=== PATIENT | female | born 1950 | race Two or more races ===

== ENCOUNTER 2016-12-26 12:50 | Emergency (ER) | payer SELFPAY ==
[~2016-12-26] VITALS: Ht 167.6 cm; Wt 100.2 kg
[~2016-12-26 12:50] MED LIST: ASPI81CH43 PO; ENAL-3 OR; FLUO20CA19 OR; GABA-494 OR; INSLANTI; INSLISPI; SIMV10TA84 OR
[2016-12-26 13:08] VITALS: BP 94/45
== END 2016-12-26 19:18 | disposition left against medical advice (07) ==
LOC: ER 12:50
DX: M54.2 Cervicalgia (principal); M54.9 Dorsalgia, unspecified; Z53.21 Procedure and treatment not carried out due to patient leaving prior to being seen by health care provider; V49.69XA Unspecified car occupant injured in collision with other motor vehicles in traffic accident, initial encounter; Y93.89 Activity, other specified; Y99.8 Other external cause status; Y92.410 Unspecified street and highway as the place of occurrence of the external cause
CPT/HCPCS: 82962

== ENCOUNTER 2017-12-02 10:23 | Emergency (ER) | payer MEDICAID ==
[~2017-12-02] VITALS: Ht 170.2 cm; Wt 79.4 kg
[2017-12-02 10:23] VITALS: BP 158/90
[~2017-12-02 10:23] MED LIST changes: -GABA-494 OR; +GABA100C9 OR
[2017-12-02 11:14] LABS: Basophils # (auto) 0 uL; Basophils % (auto) 0.4 % (0.0-2.0); Eosinophils # (auto) 0.1 uL; Eosinophils % (auto) 3.1 % (0.0-7.0); Hematocrit 36.5 % (36.0-46.0); Lymphocytes # (auto) 1.2 uL; Mean Corpuscular Hemoglobin 29.4 pg (28.0-32.0); Mean Corpuscular Hgb Conc. 32.9 g/dL (32.0-36.0); Mean Corpuscular Volume 89.5 fL (80.0-100.0); Monocytes # (auto) 0.4 uL; Monocytes % (auto) 8.3 % (0.0-12.0); Neutrophils # (auto) 2.6 uL; Neutrophils % (auto) 60.2 % (37.0-80.0); Platelet Count (auto) 211 10^3/uL (140-450); Red Blood Cells 4.08 10^6/uL (4.0-5.20); Red Cell Distribution Width 14.7 % (11.8-14.3); White Blood Cell 4.3 10^3/uL (4.4-10.8)
[2017-12-02 11:50] LABS: Albumin 3.3 g/dL (3.4-5.0); BUN/Creatinine Ratio 26.1; Bilirubin, Total 0.4 mg/dL (0.2-1.0); Calcium 8.8 mg/dL (8.5-10.1); Potassium 4.6 mmol/L (3.5-5.1); Total Protein 7.9 g/dL (6.4-8.2)
[2017-12-02 11:54] LABS: Urine WBC None Seen /hpf (0 - 5)
[2017-12-02 12:06] LABS: Urine Bacteria NONE SEEN /hpf (None Seen); Urine Blood Negative /uL (Negative); Urine Specific Gravity 1.007 (1.001-1.035)
== END 2017-12-02 14:55 | disposition home or self-care (01) ==
LOC: ER 10:23 → EDBD 10:23 → ER 14:55
DX: S81.812D Laceration without foreign body, left lower leg, subsequent encounter (principal); I12.9 Hypertensive chronic kidney disease with stage 1 through stage 4 chronic kidney disease, or unspecified chronic kidney disease; E11.22 Type 2 diabetes mellitus with diabetic chronic kidney disease; N18.9 Chronic kidney disease, unspecified; E78.5 Hyperlipidemia, unspecified; I20.9 Angina pectoris, unspecified; Z79.4 Long term (current) use of insulin; X58.XXXD Exposure to other specified factors, subsequent encounter
CPT/HCPCS: 36415; 80053; 81001; 85025

== ENCOUNTER 2018-09-08 00:42 | Emergency (ER) | payer MEDICARE, BC, MEDICAID ==
[~2018-09-08] VITALS: Ht 167.6 cm; Wt 96.2 kg
[2018-09-08] MEDS: ACCU-CHEK COMFORT CURVE STRIP VI SCH ×2 (01:53→03:26)
[2018-09-08 02:00] VITALS: BP 118/62
[2018-09-08 02:59] LABS: Basophils # (auto) 0 uL; Basophils % (auto) 0.4 % (0.0-2.0); Eosinophils # (auto) 0.1 uL; Eosinophils % (auto) 2.4 % (0.0-7.0); Hematocrit 37.3 % (36.0-46.0); Hemoglobin 12.4 g/dL (12.2-16.2); Lymphocytes # (auto) 1.4 uL; Lymphocytes % (auto) 27.9 % (10.0-50.0); Mean Corpuscular Hemoglobin 30.3 pg (28.0-32.0); Mean Corpuscular Hgb Conc. 33.4 g/dL (32.0-36.0); Mean Corpuscular Volume 90.8 fL (80.0-100.0); Monocytes # (auto) 0.6 uL; Monocytes % (auto) 12.3 % (0.0-12.0); Platelet Count (auto) 239 10^3/uL (140-450); Red Cell Distribution Width 14.1 % (11.8-14.3); White Blood Cell 5.2 10^3/uL (4.4-10.8)
[2018-09-08 03:20] LABS: Albumin 3.1 g/dL (3.4-5.0); Calcium 8.2 mg/dL (8.5-10.1)
[2018-09-08 03:22] LABS: BUN/Creatinine Ratio 19.2; Bilirubin, Total 0.3 mg/dL (0.2-1.0); Total Protein 7.2 g/dL (6.4-8.2)
== END 2018-09-08 03:35 | disposition home or self-care (01) ==
LOC: ER 00:43
DX: E11.649 Type 2 diabetes mellitus with hypoglycemia without coma (principal); T38.3X5A Adverse effect of insulin and oral hypoglycemic [antidiabetic] drugs, initial encounter; E11.22 Type 2 diabetes mellitus with diabetic chronic kidney disease; I12.9 Hypertensive chronic kidney disease with stage 1 through stage 4 chronic kidney disease, or unspecified chronic kidney disease; N18.9 Chronic kidney disease, unspecified; E78.5 Hyperlipidemia, unspecified; I25.2 Old myocardial infarction; Z79.4 Long term (current) use of insulin; Z79.82 Long term (current) use of aspirin; Z79.899 Other long term (current) drug therapy; Y92.89 Other specified places as the place of occurrence of the external cause
CPT/HCPCS: 36415; 80053; 82962; 85025

== ENCOUNTER 2021-03-27 17:32 | Inpatient (IN) | payer BC, MEDICAID, OTHER ==
[~2021-03-27] VITALS: Ht 167.6 cm; Wt 83.3 kg
[~2021-03-27 17:32] MED LIST changes: -ENAL-3 OR; +ENAL10TA13 OR
[2021-03-27] MEDS ORDERED: ASCORBIC ACID 500 MG TAB PO ONE (18:00)
[2021-03-27] MEDS ORDERED: ZINC SULFATE 220mg CAP or TAB PO ONE (18:00)
[2021-03-27] MEDS ORDERED: CHOLECALCIFEROL (VITD3) 2,000 UNIT CAP/TAB PO ONE (18:00)
[2021-03-27] MEDS ORDERED: AZITHROMYCIN 500MG/ 250ML 250 ML IV ONE (18:00)
[2021-03-27] MEDS ORDERED: methylPREDNISolone SOD SUCC 125 MG/2 ML VL IV ONE (18:00)
[2021-03-27 18:16] LABS: Basophils # (auto) 0 10 ^3/uL (0-0.2); Basophils % (auto) 0.1 % (0.0-2.0); Eosinophils # (auto) 0 10 ^3/uL (0-0.8); Hematocrit 35.8 % (36.0-46.0); Hemoglobin 11.9 g/dL (12.2-16.2); Lymphocytes # (auto) 0.5 10 ^3/uL (0.4-5.4); Lymphocytes % (auto) 6.9 % (10.0-50.0); Mean Corpuscular Hemoglobin 30.2 pg (28.0-32.0); Mean Corpuscular Hgb Conc. 33.4 g/dL (32.0-36.0); Mean Corpuscular Volume 90.7 fL (80.0-100.0); Monocytes # (auto) 0.4 10 ^3/uL (0-1.3); Monocytes % (auto) 5.9 % (0.0-12.0); Neutrophils # (auto) 6.6 10 ^3/uL (1.6-8.6); Neutrophils % (auto) 87.1 % (37.0-80.0); Nucleated Red Blood Cells % 0.1 %; Red Blood Cells 3.95 10^6/uL (4.0-5.20); Red Cell Distribution Width 14.4 % (11.8-14.3); White Blood Cell 7.6 10^3/uL (4.4-10.8)
[2021-03-27] MEDS ORDERED: ACETAMINOPHEN 500 MG TAB PO ONE (18:30)
[2021-03-27 18:32] LABS: Albumin 2.2 g/dL (3.4-5.0); Calcium 8.9 mg/dL (8.5-10.1); Potassium 5.2 mmol/L (3.5-5.1)
[2021-03-27 18:41] LABS: BUN/Creatinine Ratio 32.8; Bilirubin, Total 0.4 mg/dL (0.2-1.0); CRP High Sensitivity 17.4 mg/dL (< 0.3); Total Protein 7.6 g/dL (6.4-8.2)
[2021-03-27] MEDS ORDERED: InsuLIN REG 1unit/0.01ml Soln (100units/ml) IV ONE (19:00)
[2021-03-27] MEDS ORDERED: cefTRIAXone 1GM/50ML D5W 50 ML IV ONE (21:00)
[2021-03-27] MEDS ORDERED: TEMAZEPAM 15 MG CAP PO PRN (21:00)
[2021-03-27] MEDS ORDERED: ACETAMINOPHEN 500 MG TAB PO PRN (21:00)
[2021-03-27] MEDS ORDERED: NITROGLYCERIN 0.4 MG SL TAB SL PRN (21:00)
[2021-03-27] MEDS ORDERED: ONDANSETRON HCL 4 MG/2 ML VIAL IV PRN (21:00)
[2021-03-27] MEDS ORDERED: MORPHINE SULFATE INJECTION 2 MG/ML SYRG IV PRN (21:00)
[2021-03-27] MEDS ORDERED: SODIUM ZIRCONIUM CYCL 10 GM PAK PO ONE (21:00)
[2021-03-27] MEDS: ALBUTEROL SULF HFA 90MCG INH 200DOSE IN PRN (21:49)
[2021-03-27 22:20] VITALS: BP 82/40
[2021-03-27 22:25] VITALS: BP 87/42
[2021-03-27 22:35] VITALS: BP 80/41
[2021-03-27] MEDS: ASCORBIC ACID 500 MG TAB PO SCH (23:00)
[2021-03-27] MEDS: GABAPENTIN 100 MG CAP PO SCH (23:00)
[2021-03-27] MEDS: ATORVASTATIN 20 MG TAB PO SCH (23:00)
[2021-03-27] MEDS ORDERED: SODIUM CHLORIDE 0.9% 1,000 ML IV ONE (23:15)
[2021-03-27] MEDS ORDERED: DEXTROSE (50%) 50ML SYRG IV PRN (23:15)
[2021-03-27] MEDS ORDERED: ALBUMIN 5% 250 ML IV ONE ×2 (23:15→23:26)
[2021-03-27 23:30] VITALS: BP 83/41
[2021-03-27] MEDS: ACCU-CHEK COMFORT CURVE STRIP VI SCH (23:30)
[2021-03-27] MEDS: InsuLIN REG 1unit/0.01ml Soln (100units/ml) SC SCH (23:50)
[2021-03-28] VITALS (10 sets, daily range): BP systolic 82–129; BP diastolic 40–61
[2021-03-28 03:11] LABS: Basophils # (auto) 0 10 ^3/uL (0-0.2); Basophils % (auto) 0.1 % (0.0-2.0); Eosinophils # (auto) 0 10 ^3/uL (0-0.8); Hematocrit 34.9 % (36.0-46.0); Hemoglobin 11.3 g/dL (12.2-16.2); Lymphocytes # (auto) 0.3 10 ^3/uL (0.4-5.4); Lymphocytes % (auto) 4.3 % (10.0-50.0); Mean Corpuscular Hemoglobin 30.1 pg (28.0-32.0); Mean Corpuscular Hgb Conc. 32.4 g/dL (32.0-36.0); Mean Corpuscular Volume 92.9 fL (80.0-100.0); Monocytes # (auto) 0.2 10 ^3/uL (0-1.3); Monocytes % (auto) 2.4 % (0.0-12.0); Neutrophils # (auto) 6.5 10 ^3/uL (1.6-8.6); Neutrophils % (auto) 93.2 % (37.0-80.0); Red Blood Cells 3.76 10^6/uL (4.0-5.20); Red Cell Distribution Width 14.8 % (11.8-14.3)
[2021-03-28 03:30] LABS: Albumin 2.4 g/dL (3.4-5.0); Calcium 8.9 mg/dL (8.5-10.1); Potassium 5.1 mmol/L (3.5-5.1)
[2021-03-28 03:32] LABS: Bilirubin, Total 0.4 mg/dL (0.2-1.0); Total Protein 7.4 g/dL (6.4-8.2)
[2021-03-28 03:52] LABS: BUN/Creatinine Ratio 29.1
[2021-03-28] MEDS ORDERED: [UNRECOGNIZED DRUG - CODE] PO (05:47)
[2021-03-28] MEDS ORDERED: BACL10TA PO (05:47)
[2021-03-28] MEDS ORDERED: PRAV20TA3 PO (05:47)
[2021-03-28] MEDS ORDERED: DOCU100T15 PO (05:47)
[2021-03-28] MEDS ORDERED: INSLANTI SC (05:47)
[2021-03-28] MEDS ORDERED: BIOTCAP2 PO (05:47)
[2021-03-28] MEDS ORDERED: METF-370 PO (05:47)
[2021-03-28] MEDS ORDERED: PIO30T PO (05:47)
[2021-03-28] MEDS ORDERED: LISI-275 PO (05:47)
[2021-03-28] MEDS ORDERED: GABA-339 PO (05:47)
[2021-03-28] MEDS ORDERED: LACT10SO3 PO (05:48)
[2021-03-28] MEDS: GABAPENTIN 100 MG CAP PO SCH ×3 (06:00→22:22)
[2021-03-28] MEDS: ACCU-CHEK COMFORT CURVE STRIP VI SCH ×4 (06:00→23:17)
[2021-03-28] MEDS: ALBUTEROL SULF HFA 90MCG INH 200DOSE IN PRN (06:29)
[2021-03-28] MEDS: InsuLIN REG 1unit/0.01ml Soln (100units/ml) SC SCH ×4 (06:54→22:00)
[2021-03-28 06:57] LABS: Urine Bacteria MANY /hpf (None Seen); Urine Blood 1+ /uL (Negative); Urine Hyaline Cast FEW /lpf (0 - 2); Urine Mucus FEW (None Seen); Urine Specific Gravity 1.019 (1.001-1.035); Urine WBC 99 /hpf (0 - 5); Urine WBC Clumps PRESENT /hpf (None Seen)
[2021-03-28] MEDS ORDERED: ZINC SULFATE 220mg CAP or TAB PO SCH (10:00)
[2021-03-28] MEDS ORDERED: PANTOPRAZOLE 40 MG TAB PO SCH (10:00)
[2021-03-28] MEDS ORDERED: ASCORBIC ACID 1,000 MG TAB PO SCH (10:00)
[2021-03-28] MEDS ORDERED: REMDESIVIR PER PHARMACY 0 ML IV SCH (10:45)
[2021-03-28] MEDS ORDERED: DEXTROSE (50%) 50ML SYRG IV PRN ×2 (10:45→11:00)
[2021-03-28] MEDS ORDERED: INSULIN LANTUS (GLARGINE) 1 /0.01ml (100units/ml) SC ONE (10:45)
[2021-03-28] MEDS ORDERED: InsuLIN REG 1unit/0.01ml Soln (100units/ml) SC SCH ×2 (11:30→22:00)
[2021-03-28] MEDS ORDERED: ACCU-CHEK COMFORT CURVE STRIP VI SCH (11:30)
[2021-03-28] MEDS: DexAMETHasone SOD PHOS 10MG/1ML VIAL INJ IV SCH (11:33)
[2021-03-28] MEDS: ZINC SULFATE 220mg CAP or TAB PO SCH (11:34)
[2021-03-28] MEDS: FLUoxetine HCL 20 MG CAP PO SCH (11:35)
[2021-03-28] MEDS: ENOXAPARIN SOD 40 MG/0.4 ML SYRINGE SC SCH (11:35)
[2021-03-28] MEDS: SODIUM CHLORIDE 0.9% 1,000 ML IV SCH (11:35)
[2021-03-28] MEDS: CHOLECALCIFEROL (VITD3) 2,000 UNIT CAP/TAB PO SCH (11:35)
[2021-03-28] MEDS: ASCORBIC ACID 500 MG TAB PO SCH ×2 (11:35→22:23)
[2021-03-28] MEDS ORDERED: InsuLIN REG 1unit/0.01ml Soln (100units/ml) SC ONE (14:15)
[2021-03-28] MEDS: AZITHROMYCIN 500MG/ 250ML 250 ML IV SCH (17:29)
[2021-03-28] MEDS: INSULIN LANTUS (GLARGINE) 1 /0.01ml (100units/ml) SC SCH (22:00)
[2021-03-28] MEDS: cefTRIAXone 1GM/50ML D5W 50 ML IV SCH (22:22)
[2021-03-28] MEDS: ATORVASTATIN 20 MG TAB PO SCH (22:22)
[2021-03-29] VITALS (7 sets, daily range): BP systolic 115–143; BP diastolic 52–69
[2021-03-29] MEDS: ACCU-CHEK COMFORT CURVE STRIP VI SCH ×4 (06:10→21:35)
[2021-03-29] MEDS: GABAPENTIN 100 MG CAP PO SCH ×3 (06:10→21:34)
[2021-03-29] MEDS: InsuLIN REG 1unit/0.01ml Soln (100units/ml) SC SCH ×4 (06:11→21:41)
[2021-03-29] MEDS: SODIUM CHLORIDE 0.9% 1,000 ML IV SCH (06:13)
[2021-03-29 06:26] LABS: Basophils # (auto) 0 10 ^3/uL (0-0.2); Basophils % (auto) 0.1 % (0.0-2.0); Eosinophils # (auto) 0 10 ^3/uL (0-0.8); Hematocrit 36.1 % (36.0-46.0); Hemoglobin 11.8 g/dL (12.2-16.2); Lymphocytes # (auto) 0.5 10 ^3/uL (0.4-5.4); Mean Corpuscular Hemoglobin 29.7 pg (28.0-32.0); Mean Corpuscular Hgb Conc. 32.7 g/dL (32.0-36.0); Mean Corpuscular Volume 91.1 fL (80.0-100.0); Monocytes # (auto) 0.4 10 ^3/uL (0-1.3); Monocytes % (auto) 4.5 % (0.0-12.0); Neutrophils # (auto) 8.6 10 ^3/uL (1.6-8.6); Neutrophils % (auto) 90.4 % (37.0-80.0); Red Blood Cells 3.96 10^6/uL (4.0-5.20); Red Cell Distribution Width 14.4 % (11.8-14.3); White Blood Cell 9.5 10^3/uL (4.4-10.8)
[2021-03-29 06:31] LABS: BUN/Creatinine Ratio 50.3; Calcium 9.2 mg/dL (8.5-10.1); Potassium 4.9 mmol/L (3.5-5.1)
[2021-03-29] MEDS: ALBUTEROL SULF HFA 90MCG INH 200DOSE IN PRN (08:21)
[2021-03-29] MEDS: DexAMETHasone SOD PHOS 10MG/1ML VIAL INJ IV SCH (09:12)
[2021-03-29] MEDS: FLUoxetine HCL 20 MG CAP PO SCH (09:12)
[2021-03-29] MEDS: FUROSEMIDE 40 MG/4 ML VIAL IV SCH (09:12)
[2021-03-29] MEDS: ASCORBIC ACID 500 MG TAB PO SCH ×2 (09:13→21:34)
[2021-03-29] MEDS: ZINC SULFATE 220mg CAP or TAB PO SCH (09:13)
[2021-03-29] MEDS: ENOXAPARIN SOD 40 MG/0.4 ML SYRINGE SC SCH (09:13)
[2021-03-29] MEDS: CHOLECALCIFEROL (VITD3) 2,000 UNIT CAP/TAB PO SCH (09:13)
[2021-03-29] MEDS ORDERED: REMDESIVIR PER PHARMACY 0 ML IV SCH (09:15)
[2021-03-29] MEDS ORDERED: REMDESIVIR 200 MG in NS 210ml LOADING DOSE ADULT IV ONE (15:00)
[2021-03-29] MEDS: AZITHROMYCIN 500MG/ 250ML 250 ML IV SCH (17:23)
[2021-03-29] MEDS: ATORVASTATIN 20 MG TAB PO SCH (21:34)
[2021-03-29] MEDS: cefTRIAXone 1GM/50ML D5W 50 ML IV SCH (21:34)
[2021-03-29] MEDS: INSULIN LANTUS (GLARGINE) 1 /0.01ml (100units/ml) SC SCH (21:42)
[2021-03-30 05:26] VITALS: BP 136/77
[2021-03-30 06:14] LABS: Basophils # (auto) 0 10 ^3/uL (0-0.2); Basophils % (auto) 0.1 % (0.0-2.0); Eosinophils # (auto) 0 10 ^3/uL (0-0.8); Hemoglobin 11.5 g/dL (12.2-16.2); Lymphocytes # (auto) 0.4 10 ^3/uL (0.4-5.4); Lymphocytes % (auto) 4.9 % (10.0-50.0); Mean Corpuscular Hemoglobin 30.7 pg (28.0-32.0); Mean Corpuscular Hgb Conc. 33.9 g/dL (32.0-36.0); Mean Corpuscular Volume 90.5 fL (80.0-100.0); Monocytes # (auto) 0.4 10 ^3/uL (0-1.3); Monocytes % (auto) 5.2 % (0.0-12.0); Neutrophils # (auto) 7.6 10 ^3/uL (1.6-8.6); Neutrophils % (auto) 89.8 % (37.0-80.0); Red Blood Cells 3.76 10^6/uL (4.0-5.20); Red Cell Distribution Width 14.4 % (11.8-14.3); White Blood Cell 8.4 10^3/uL (4.4-10.8)
[2021-03-30] MEDS: ACCU-CHEK COMFORT CURVE STRIP VI SCH ×4 (06:14→21:57)
[2021-03-30] MEDS: GABAPENTIN 100 MG CAP PO SCH ×3 (06:14→22:00)
[2021-03-30] MEDS: InsuLIN REG 1unit/0.01ml Soln (100units/ml) SC SCH ×4 (06:19→21:58)
[2021-03-30 06:22] LABS: Potassium 4.2 mmol/L (3.5-5.1)
[2021-03-30] MEDS: ALBUTEROL SULF HFA 90MCG INH 200DOSE IN PRN (06:22)
[2021-03-30 06:28] LABS: Albumin 2.1 g/dL (3.4-5.0); BUN/Creatinine Ratio 48.2; Bilirubin, Total 0.2 mg/dL (0.2-1.0); Calcium 9.1 mg/dL (8.5-10.1)
[2021-03-30 09:00] VITALS: BP 124/58
[2021-03-30] MEDS: DexAMETHasone SOD PHOS 10MG/1ML VIAL INJ IV SCH (10:19)
[2021-03-30] MEDS: FUROSEMIDE 40 MG/4 ML VIAL IV SCH (10:20)
[2021-03-30] MEDS: FLUoxetine HCL 20 MG CAP PO SCH (10:20)
[2021-03-30] MEDS: ZINC SULFATE 220mg CAP or TAB PO SCH (10:20)
[2021-03-30] MEDS: CHOLECALCIFEROL (VITD3) 2,000 UNIT CAP/TAB PO SCH (10:21)
[2021-03-30] MEDS: ASCORBIC ACID 500 MG TAB PO SCH ×2 (10:21→21:56)
[2021-03-30] MEDS: ENOXAPARIN SOD 40 MG/0.4 ML SYRINGE SC SCH (10:21)
[2021-03-30] MEDS: ENALAPRIL MALEATE 10 MG TAB PO SCH (10:21)
[2021-03-30 13:00] VITALS: BP 128/62
[2021-03-30] MEDS: REMDESIVIR 100mg 100 MG in SODIUM CHL 0.9% 230 ML IV SCH (15:13)
[2021-03-30 16:50] VITALS: BP 131/67
[2021-03-30] MEDS: AZITHROMYCIN 500MG/ 250ML 250 ML IV SCH (17:09)
[2021-03-30] MEDS: cefTRIAXone 1GM/50ML D5W 50 ML IV SCH (21:56)
[2021-03-30] MEDS: ATORVASTATIN 20 MG TAB PO SCH (21:56)
[2021-03-30 22:00] VITALS: BP 136/60
[2021-03-30] MEDS: INSULIN LANTUS (GLARGINE) 1 /0.01ml (100units/ml) SC SCH (22:00)
[2021-03-31] VITALS (9 sets, daily range): BP systolic 62–146; BP diastolic 54–83
[2021-03-31] MEDS: ALBUTEROL SULF HFA 90MCG INH 200DOSE IN PRN ×2 (06:09→20:23)
[2021-03-31] MEDS: GABAPENTIN 100 MG CAP PO SCH ×3 (06:21→21:26)
[2021-03-31] MEDS: ACCU-CHEK COMFORT CURVE STRIP VI SCH ×4 (06:21→21:25)
[2021-03-31] MEDS: InsuLIN REG 1unit/0.01ml Soln (100units/ml) SC SCH ×4 (06:22→21:07)
[2021-03-31 06:49] LABS: Basophils # (auto) 0 10 ^3/uL (0-0.2); Basophils % (auto) 0.1 % (0.0-2.0); Eosinophils # (auto) 0 10 ^3/uL (0-0.8); Hematocrit 35.1 % (36.0-46.0); Hemoglobin 11.9 g/dL (12.2-16.2); Lymphocytes # (auto) 0.6 10 ^3/uL (0.4-5.4); Lymphocytes % (auto) 8.5 % (10.0-50.0); Mean Corpuscular Hemoglobin 30.3 pg (28.0-32.0); Mean Corpuscular Hgb Conc. 33.8 g/dL (32.0-36.0); Mean Corpuscular Volume 89.5 fL (80.0-100.0); Monocytes # (auto) 0.5 10 ^3/uL (0-1.3); Monocytes % (auto) 6.5 % (0.0-12.0); Neutrophils # (auto) 5.9 10 ^3/uL (1.6-8.6); Neutrophils % (auto) 84.9 % (37.0-80.0); Red Blood Cells 3.92 10^6/uL (4.0-5.20); Red Cell Distribution Width 14.2 % (11.8-14.3)
[2021-03-31 06:55] LABS: Potassium 3.8 mmol/L (3.5-5.1)
[2021-03-31 07:05] LABS: Albumin 1.8 g/dL (3.4-5.0); BUN/Creatinine Ratio 46.7; Bilirubin, Total 0.3 mg/dL (0.2-1.0); Calcium 8.9 mg/dL (8.5-10.1); Total Protein 6.6 g/dL (6.4-8.2)
[2021-03-31] MEDS: DexAMETHasone SOD PHOS 10MG/1ML VIAL INJ IV SCH (09:52)
[2021-03-31] MEDS: ZINC SULFATE 220mg CAP or TAB PO SCH (09:54)
[2021-03-31] MEDS: ASCORBIC ACID 500 MG TAB PO SCH ×2 (09:54→21:26)
[2021-03-31] MEDS: FUROSEMIDE 40 MG/4 ML VIAL IV SCH ×2 (09:54→17:51)
[2021-03-31] MEDS: FLUoxetine HCL 20 MG CAP PO SCH (09:54)
[2021-03-31] MEDS: ENOXAPARIN SOD 40 MG/0.4 ML SYRINGE SC SCH ×2 (09:55→21:22)
[2021-03-31] MEDS: CHOLECALCIFEROL (VITD3) 2,000 UNIT CAP/TAB PO SCH (09:55)
[2021-03-31] MEDS: ENALAPRIL MALEATE 10 MG TAB PO SCH (10:03)
[2021-03-31] MEDS: REMDESIVIR 100mg 100 MG in SODIUM CHL 0.9% 230 ML IV SCH (15:34)
[2021-03-31] MEDS ORDERED: SODIUM CHLORIDE 0.9% 250 ML IV ONE (18:45)
[2021-03-31] MEDS: AZITHROMYCIN 500MG/ 250ML 250 ML IV SCH (19:00)
[2021-03-31] MEDS: cefTRIAXone 1GM/50ML D5W 50 ML IV SCH (21:25)
[2021-03-31] MEDS: ATORVASTATIN 20 MG TAB PO SCH (21:26)
[2021-03-31] MEDS: INSULIN LANTUS (GLARGINE) 1 /0.01ml (100units/ml) SC SCH (21:27)
[2021-04-01 05:00] VITALS: BP 128/71
[2021-04-01] MEDS: FUROSEMIDE 40 MG/4 ML VIAL IV SCH ×2 (06:05→17:18)
[2021-04-01] MEDS: GABAPENTIN 100 MG CAP PO SCH ×3 (06:05→21:18)
[2021-04-01] MEDS: ACCU-CHEK COMFORT CURVE STRIP VI SCH ×4 (06:06→21:17)
[2021-04-01] MEDS: InsuLIN REG 1unit/0.01ml Soln (100units/ml) SC SCH ×4 (06:11→21:36)
[2021-04-01 07:12] LABS: Albumin 1.8 g/dL (3.4-5.0)
[2021-04-01 07:14] LABS: BUN/Creatinine Ratio 35.2
[2021-04-01 07:18] LABS: Bilirubin, Total 0.3 mg/dL (0.2-1.0); Total Protein 6.6 g/dL (6.4-8.2)
[2021-04-01] MEDS: ALBUTEROL SULF HFA 90MCG INH 200DOSE IN PRN ×2 (07:20→19:52)
[2021-04-01 07:30] VITALS: BP 93/53
[2021-04-01 09:00] VITALS: BP 93/53
[2021-04-01] MEDS: ENALAPRIL MALEATE 10 MG TAB PO SCH (10:00)
[2021-04-01] MEDS: ASCORBIC ACID 500 MG TAB PO SCH ×2 (10:14→21:18)
[2021-04-01] MEDS: ZINC SULFATE 220mg CAP or TAB PO SCH (10:15)
[2021-04-01] MEDS: ENOXAPARIN SOD 40 MG/0.4 ML SYRINGE SC SCH ×2 (10:15→21:19)
[2021-04-01] MEDS: CHOLECALCIFEROL (VITD3) 2,000 UNIT CAP/TAB PO SCH (10:15)
[2021-04-01] MEDS: DexAMETHasone SOD PHOS 10MG/1ML VIAL INJ IV SCH (10:15)
[2021-04-01] MEDS: FLUoxetine HCL 20 MG CAP PO SCH (10:15)
[2021-04-01 14:00] VITALS: BP 106/52
[2021-04-01] MEDS: REMDESIVIR 100mg 100 MG in SODIUM CHL 0.9% 230 ML IV SCH (14:20)
[2021-04-01 17:01] VITALS: BP 108/57
[2021-04-01] MEDS: AZITHROMYCIN 500MG/ 250ML 250 ML IV SCH (17:18)
[2021-04-01] MEDS: ATORVASTATIN 20 MG TAB PO SCH (21:18)
[2021-04-01] MEDS: cefTRIAXone 1GM/50ML D5W 50 ML IV SCH (21:18)
[2021-04-01] MEDS: INSULIN LANTUS (GLARGINE) 1 /0.01ml (100units/ml) SC SCH (21:19)
[2021-04-01 22:00] VITALS: BP 124/64
[2021-04-02 05:00] VITALS: BP 131/68
[2021-04-02 06:00] LABS: Calcium 8.4 mg/dL (8.5-10.1); Potassium 3.5 mmol/L (3.5-5.1)
[2021-04-02] MEDS: FUROSEMIDE 40 MG/4 ML VIAL IV SCH ×2 (06:01→18:02)
[2021-04-02] MEDS: GABAPENTIN 100 MG CAP PO SCH ×3 (06:01→21:38)
[2021-04-02] MEDS: InsuLIN REG 1unit/0.01ml Soln (100units/ml) SC SCH ×4 (06:02→21:42)
[2021-04-02] MEDS: ACCU-CHEK COMFORT CURVE STRIP VI SCH ×4 (06:02→21:38)
[2021-04-02 06:03] LABS: Albumin 1.6 g/dL (3.4-5.0); BUN/Creatinine Ratio 41.1
[2021-04-02 06:05] LABS: Bilirubin, Total 0.3 mg/dL (0.2-1.0); Total Protein 6.3 g/dL (6.4-8.2)
[2021-04-02] MEDS: ALBUTEROL SULF HFA 90MCG INH 200DOSE IN PRN ×2 (06:41→19:48)
[2021-04-02 09:00] VITALS: BP 113/51
[2021-04-02] MEDS: ZINC SULFATE 220mg CAP or TAB PO SCH (10:46)
[2021-04-02] MEDS: DexAMETHasone SOD PHOS 10MG/1ML VIAL INJ IV SCH (10:46)
[2021-04-02] MEDS: ENALAPRIL MALEATE 10 MG TAB PO SCH (10:47)
[2021-04-02] MEDS: ASCORBIC ACID 500 MG TAB PO SCH ×2 (10:47→21:38)
[2021-04-02] MEDS: ENOXAPARIN SOD 40 MG/0.4 ML SYRINGE SC SCH ×2 (10:48→21:38)
[2021-04-02] MEDS: CHOLECALCIFEROL (VITD3) 2,000 UNIT CAP/TAB PO SCH (10:48)
[2021-04-02] MEDS: FLUoxetine HCL 20 MG CAP PO SCH (12:10)
[2021-04-02 14:15] VITALS: BP 101/57
[2021-04-02] MEDS: REMDESIVIR 100mg 100 MG in SODIUM CHL 0.9% 230 ML IV SCH (14:50)
[2021-04-02 17:00] VITALS: BP 99/33
[2021-04-02] MEDS: ATORVASTATIN 20 MG TAB PO SCH (21:37)
[2021-04-02] MEDS: INSULIN LANTUS (GLARGINE) 1 /0.01ml (100units/ml) SC SCH (21:43)
[2021-04-02 22:00] VITALS: BP 114/60
[2021-04-03 01:17] VITALS: BP 114/60
[2021-04-03 05:00] VITALS: BP 118/69
[2021-04-03] MEDS: FUROSEMIDE 40 MG/4 ML VIAL IV SCH (06:16)
[2021-04-03] MEDS: GABAPENTIN 100 MG CAP PO SCH (06:16)
[2021-04-03] MEDS: ACCU-CHEK COMFORT CURVE STRIP VI SCH (06:17)
[2021-04-03] MEDS: InsuLIN REG 1unit/0.01ml Soln (100units/ml) SC SCH (06:23)
[2021-04-03 09:00] VITALS: BP 97/45
[2021-04-03] MEDS: ALBUTEROL SULF HFA 90MCG INH 200DOSE IN PRN (09:15)
[2021-04-03] MEDS: ENALAPRIL MALEATE 10 MG TAB PO SCH (10:00)
[2021-04-03] MEDS: DexAMETHasone SOD PHOS 10MG/1ML VIAL INJ IV SCH (10:15)
[2021-04-03] MEDS: ASCORBIC ACID 500 MG TAB PO SCH (10:16)
[2021-04-03] MEDS: ZINC SULFATE 220mg CAP or TAB PO SCH (10:16)
[2021-04-03] MEDS: ENOXAPARIN SOD 40 MG/0.4 ML SYRINGE SC SCH (10:16)
[2021-04-03] MEDS: FLUoxetine HCL 20 MG CAP PO SCH (10:16)
[2021-04-03] MEDS: CHOLECALCIFEROL (VITD3) 2,000 UNIT CAP/TAB PO SCH (10:16)
[2021-04-03 11:29] VITALS: BP 97/45
== END 2021-04-03 14:46 | disposition home or self-care (01) | DRG 177 ==
LOC: ER 17:32 → EDBD 17:32 → TELE 20:50 → TELE-EAST 22:08
PROVIDERS: ADMIT Nurse Practitioner; ATTEND Internal Medicine Geriatric Medicine
PROC: XW033E5 Introduction of Remdesivir Anti-infective into Peripheral Vein, Percutaneous Approach, New Technology Group 5 (ICD-10-PCS; principal; 2021-03-29)
DX: U07.1 COVID-19 (principal); J96.01 Acute respiratory failure with hypoxia; J12.82 Pneumonia due to coronavirus disease 2019; E43 Unspecified severe protein-calorie malnutrition; N17.9 Acute kidney failure, unspecified; J98.11 Atelectasis; E11.65 Type 2 diabetes mellitus with hyperglycemia; E66.9 Obesity, unspecified; N18.9 Chronic kidney disease, unspecified; E88.09 Other disorders of plasma-protein metabolism, not elsewhere classified; E11.22 Type 2 diabetes mellitus with diabetic chronic kidney disease; D64.9 Anemia, unspecified; E78.5 Hyperlipidemia, unspecified; F32.9 Major depressive disorder, single episode, unspecified; F41.9 Anxiety disorder, unspecified; G47.33 Obstructive sleep apnea (adult) (pediatric); I12.9 Hypertensive chronic kidney disease with stage 1 through stage 4 chronic kidney disease, or unspecified chronic kidney disease; Z79.4 Long term (current) use of insulin; Z79.82 Long term (current) use of aspirin; Z79.899 Other long term (current) drug therapy; Z80.8 Family history of malignant neoplasm of other organs or systems; Z68.30 Body mass index [BMI] 30.0-30.9, adult
CPT/HCPCS: 36415; 36600; 71045; 80048; 80053; 81001; 82010; 82728; 82805; 82962; 83036; 83605; 83615; 83735; 83880; 85025; 85379; 86141; 87040; 87426; 93005; 94640; 96361; 96365; 96366; 96368; 96375; G0378; J0696; J1100; J1815

== ENCOUNTER 2022-01-15 20:09 | Inpatient (IN) | payer OTHER ==
[~2022-01-15] VITALS: Ht 162.6 cm; Wt 86.6 kg
[~2022-01-15 20:09] MED LIST changes: +BACL10TA PO; +BIOTCAP2 PO; +BUPR100T15 PO; +DOCU100T15 PO; +GABA-339 PO; +INSLANTI SC; +LACT10SO3 PO; +LISI-275 PO; +METF-370 PO; +PIO30T PO; +PRAV20TA3 PO
[2022-01-15] MEDS ORDERED: SODIUM CHLORIDE 0.9% 1,000 ML IV ONE (20:30)
[2022-01-15 21:07] LABS: Urine Bacteria FEW /hpf (None Seen); Urine Blood 3+ /uL (Negative); Urine Budding Yeast MODERATE /hpf (None Seen); Urine Specific Gravity 1.018 (1.001-1.035); Urine WBC 755 /hpf (0 - 5); Urine WBC Clumps PRESENT /hpf (None Seen)
[2022-01-15 21:10] LABS: Albumin 2.3 g/dL (3.4-5.0); BUN/Creatinine Ratio 19.5; Calcium 8.2 mg/dL (8.5-10.1); Magnesium 1.9 mg/dL (1.6-2.6); Potassium 4.1 mmol/L (3.5-5.1)
[2022-01-15 21:13] LABS: Bilirubin, Total 0.4 mg/dL (0.2-1.0); Lactic Acid w/Reflex 5.5 mmol/L (0.4-2.0); Total Protein 6.1 g/dL (6.4-8.2)
[2022-01-15 21:23] LABS: Basophils # (auto) 0 10 ^3/uL (0-0.2); Basophils % (auto) 0.4 % (0.0-2.0); Eosinophils # (auto) 0 10 ^3/uL (0-0.8); Eosinophils % (auto) 0.3 % (0.0-7.0); Hematocrit 27.9 % (36.0-46.0); Hemoglobin 9.1 g/dL (12.2-16.2); Lymphocytes # (auto) 1.1 10 ^3/uL (0.4-5.4); Lymphocytes % (auto) 16.2 % (10.0-50.0); Mean Corpuscular Hemoglobin 28.8 pg (28.0-32.0); Mean Corpuscular Hgb Conc. 32.7 g/dL (32.0-36.0); Mean Corpuscular Volume 88.2 fL (80.0-100.0); Monocytes # (auto) 0.7 10 ^3/uL (0-1.3); Monocytes % (auto) 9.9 % (0.0-12.0); Neutrophils # (auto) 5.1 10 ^3/uL (1.6-8.6); Neutrophils % (auto) 73.2 % (37.0-80.0); Red Blood Cells 3.17 10^6/uL (4.0-5.20); Red Cell Distribution Width 17.1 % (11.8-14.3); White Blood Cell 6.9 10^3/uL (4.4-10.8)
[2022-01-15 21:31] LABS: INR 0.94 (0.9-1.15); Partial Thromboplastin Time 25.4 sec (24.6-33.4)
[2022-01-16] MEDS ORDERED: SODIUM CHLORIDE 0.9% 1,000 ML IV ONE (01:00)
[2022-01-16] MEDS ORDERED: cefTRIAXone 1GM/50ML D5W 50 ML IV ONE (01:00)
[2022-01-16] MEDS ORDERED: SODIUM CHLORIDE 0.9% 500 ML IV ONE (09:30)
[2022-01-16] MEDS ORDERED: ACETAMINOPHEN 325 MG TAB PO PRN (11:30)
[2022-01-16] MEDS ORDERED: DEXTROSE (50%) 50ML SYRG IV PRN ×4 (11:30→21:45)
[2022-01-16] MEDS ORDERED: DOCUSATE SOD 100 MG CAP PO PRN (11:30)
[2022-01-16] MEDS ORDERED: HYDROmorphone HCL 2 MG/ML VL/or syr IV PRN (11:30)
[2022-01-16] MEDS ORDERED: ACCU-CHEK COMFORT CURVE STRIP VI SCH ×2 (11:30→16:00)
[2022-01-16] MEDS ORDERED: LACTATED RINGER'S 1,000 ML IV ONE ×2 (11:30→15:15)
[2022-01-16] MEDS ORDERED: ONDANSETRON HCL 4 MG/2 ML VIAL IV PRN (11:30)
[2022-01-16] MEDS ORDERED: InsuLIN REG 1unit/0.01ml Soln (100units/ml) SC SCH ×2 (11:30→16:00)
[2022-01-16] MEDS ORDERED: HYDROcodone-ACET 5/325MG TAB PO PRN (11:30)
[2022-01-16] MEDS: ENOXAPARIN SOD 40 MG/0.4 ML SYRINGE SC SCH (12:20)
[2022-01-16] MEDS ORDERED: InsuLIN REG 1unit/0.01ml Soln (100units/ml) IV ONE (12:45)
[2022-01-16 12:50] LABS: BUN/Creatinine Ratio 27.1; Calcium 8.2 mg/dL (8.5-10.1)
[2022-01-16] MEDS: SODIUM CHLOR 0.9% PF (SALINE LOCK) 10ML VIAL/SYR IV SCH ×2 (13:29→20:04)
[2022-01-16 14:42] LABS: Calcium 8.1 mg/dL (8.5-10.1); Potassium 3.8 mmol/L (3.5-5.1)
[2022-01-16 14:51] LABS: BUN/Creatinine Ratio 21.2
[2022-01-16] MEDS ORDERED: INSULIN LANTUS (GLARGINE) 1 /0.01ml (100units/ml) SC ONE (15:15)
[2022-01-16] MEDS ORDERED: InsuLIN R (HUMAN) 100 UNITS in SODIUM CHL 0.9% 99 ML IV SCH (15:15)
[2022-01-16] MEDS: ACCU-CHEK COMFORT CURVE STRIP VI SCH ×4 (16:30→21:11)
[2022-01-16] MEDS ORDERED: IOHEXOL 350 MG/ML 100ML IJ ONE (16:40)
[2022-01-16 18:50] LABS: BUN/Creatinine Ratio 19.6; Calcium 8.2 mg/dL (8.5-10.1); Potassium 4.6 mmol/L (3.5-5.1)
[2022-01-16 22:41] LABS: BUN/Creatinine Ratio 24.1; Calcium 8.5 mg/dL (8.5-10.1); Potassium 3.9 mmol/L (3.5-5.1)
[2022-01-17 02:21] LABS: BUN/Creatinine Ratio 29.2; Calcium 8.4 mg/dL (8.5-10.1)
[2022-01-17] MEDS: ACCU-CHEK COMFORT CURVE STRIP VI SCH ×7 (04:00→23:55)
[2022-01-17] MEDS: InsuLIN REG 1unit/0.01ml Soln (100units/ml) SC SCH ×7 (04:00→23:57)
[2022-01-17] MEDS: SODIUM CHLOR 0.9% PF (SALINE LOCK) 10ML VIAL/SYR IV SCH ×3 (04:42→22:30)
[2022-01-17 06:39] LABS: Calcium 8.3 mg/dL (8.5-10.1); Potassium 3.9 mmol/L (3.5-5.1)
[2022-01-17] MEDS ORDERED: INSULIN LANTUS (GLARGINE) 1 /0.01ml (100units/ml) SC SCH (10:00)
[2022-01-17 10:12] LABS: BUN/Creatinine Ratio 29.4; Calcium 8.3 mg/dL (8.5-10.1); Potassium 3.8 mmol/L (3.5-5.1)
[2022-01-17] MEDS: SODIUM CHLORIDE 0.9% 1,000 ML IV SCH ×2 (12:15→23:15)
[2022-01-17] MEDS: cefTRIAXone 1GM/50ML D5W 50 ML IV SCH (12:40)
[2022-01-17] MEDS: ENOXAPARIN SOD 40 MG/0.4 ML SYRINGE SC SCH (12:41)
[2022-01-17 12:50] VITALS: BP 132/59
[2022-01-17 16:44] VITALS: BP 142/56
[2022-01-17 20:00] VITALS: BP 136/49
[2022-01-17 22:00] VITALS: BP 155/61
[2022-01-17 23:00] VITALS: BP 136/49
[2022-01-18] MEDS: InsuLIN REG 1unit/0.01ml Soln (100units/ml) SC SCH ×5 (04:00→21:12)
[2022-01-18] MEDS: ACCU-CHEK COMFORT CURVE STRIP VI SCH ×5 (04:06→20:00)
[2022-01-18 05:00] VITALS: BP 138/62
[2022-01-18] MEDS: SODIUM CHLOR 0.9% PF (SALINE LOCK) 10ML VIAL/SYR IV SCH ×3 (05:38→22:00)
[2022-01-18 06:39] LABS: Basophils # (auto) 0 10 ^3/uL (0-0.2); Basophils % (auto) 0.4 % (0.0-2.0); Eosinophils # (auto) 0.1 10 ^3/uL (0-0.8); Eosinophils % (auto) 1.7 % (0.0-7.0); Hematocrit 27.4 % (36.0-46.0); Hemoglobin 9.1 g/dL (12.2-16.2); Lymphocytes # (auto) 1.4 10 ^3/uL (0.4-5.4); Lymphocytes % (auto) 28.8 % (10.0-50.0); Mean Corpuscular Hemoglobin 29.1 pg (28.0-32.0); Mean Corpuscular Volume 88.2 fL (80.0-100.0); Monocytes # (auto) 0.5 10 ^3/uL (0-1.3); Monocytes % (auto) 10.8 % (0.0-12.0); Neutrophils # (auto) 2.9 10 ^3/uL (1.6-8.6); Neutrophils % (auto) 58.3 % (37.0-80.0); Nucleated Red Blood Cells % 0.1 %; Red Blood Cells 3.11 10^6/uL (4.0-5.20); Red Cell Distribution Width 17.3 % (11.8-14.3); White Blood Cell 4.9 10^3/uL (4.4-10.8)
[2022-01-18 06:54] LABS: BUN/Creatinine Ratio 16.7; Calcium 8.4 mg/dL (8.5-10.1); Potassium 3.3 mmol/L (3.5-5.1)
[2022-01-18 08:00] VITALS: BP 164/53
[2022-01-18 09:00] VITALS: BP 164/53
[2022-01-18] MEDS: SODIUM CHLORIDE 0.9% 1,000 ML IV SCH ×2 (11:50→17:35)
[2022-01-18] MEDS: cefTRIAXone 1GM/50ML D5W 50 ML IV SCH (11:50)
[2022-01-18] MEDS: ENOXAPARIN SOD 40 MG/0.4 ML SYRINGE SC SCH (11:51)
[2022-01-18] MEDS ORDERED: CIPROFLOXACIN HCL 500 MG TAB PO ONE (12:15)
[2022-01-18] MEDS ORDERED: POTASSIUM CHL 20 Meq TABLET PO ONE (12:15)
[2022-01-18 13:00] VITALS: BP 148/57
[2022-01-18 17:00] VITALS: BP 146/62
[2022-01-18 21:56] VITALS: BP 156/60
[2022-01-18] MEDS: CIPROFLOXACIN HCL 500 MG TAB PO SCH (22:33)
[2022-01-19] MEDS: InsuLIN REG 1unit/0.01ml Soln (100units/ml) SC SCH ×7 (00:18→23:28)
[2022-01-19] MEDS: ACCU-CHEK COMFORT CURVE STRIP VI SCH ×7 (00:19→23:30)
[2022-01-19] MEDS: SODIUM CHLORIDE 0.9% 1,000 ML IV SCH ×2 (04:33→12:50)
[2022-01-19 04:47] VITALS: BP 146/50
[2022-01-19] MEDS: SODIUM CHLOR 0.9% PF (SALINE LOCK) 10ML VIAL/SYR IV SCH ×3 (06:00→22:00)
[2022-01-19 06:13] LABS: Basophils # (auto) 0 10 ^3/uL (0-0.2); Basophils % (auto) 0.4 % (0.0-2.0); Eosinophils # (auto) 0.1 10 ^3/uL (0-0.8); Eosinophils % (auto) 1.4 % (0.0-7.0); Hematocrit 27.3 % (36.0-46.0); Hemoglobin 9.2 g/dL (12.2-16.2); Lymphocytes # (auto) 1.1 10 ^3/uL (0.4-5.4); Lymphocytes % (auto) 27.1 % (10.0-50.0); Mean Corpuscular Hemoglobin 29.5 pg (28.0-32.0); Mean Corpuscular Hgb Conc. 33.9 g/dL (32.0-36.0); Monocytes # (auto) 0.4 10 ^3/uL (0-1.3); Monocytes % (auto) 11.2 % (0.0-12.0); Neutrophils # (auto) 2.4 10 ^3/uL (1.6-8.6); Neutrophils % (auto) 59.9 % (37.0-80.0); Nucleated Red Blood Cells % 0.1 %; Red Blood Cells 3.13 10^6/uL (4.0-5.20); Red Cell Distribution Width 17.3 % (11.8-14.3)
[2022-01-19 06:22] LABS: Calcium 8.2 mg/dL (8.5-10.1); Potassium 3.2 mmol/L (3.5-5.1)
[2022-01-19 06:24] LABS: BUN/Creatinine Ratio 8.3
[2022-01-19 09:00] VITALS: BP 138/52
[2022-01-19] MEDS: CIPROFLOXACIN HCL 500 MG TAB PO SCH ×2 (09:00→22:00)
[2022-01-19] MEDS: ENOXAPARIN SOD 40 MG/0.4 ML SYRINGE SC SCH (09:00)
[2022-01-19] MEDS ORDERED: POTASSIUM CHL 20 Meq TABLET PO ONE (11:45)
[2022-01-19 13:01] VITALS: BP 132/49
[2022-01-19 16:42] VITALS: BP 138/56
[2022-01-19 22:00] VITALS: BP 153/84
[2022-01-20] MEDS: SODIUM CHLORIDE 0.9% 1,000 ML IV SCH ×3 (00:15→20:56)
[2022-01-20] MEDS: InsuLIN REG 1unit/0.01ml Soln (100units/ml) SC SCH ×5 (04:00→21:14)
[2022-01-20] MEDS: ACCU-CHEK COMFORT CURVE STRIP VI SCH ×5 (04:12→20:00)
[2022-01-20 05:00] VITALS: BP 159/57
[2022-01-20] MEDS: SODIUM CHLOR 0.9% PF (SALINE LOCK) 10ML VIAL/SYR IV SCH ×3 (06:00→22:00)
[2022-01-20 06:05] LABS: Potassium 3.7 mmol/L (3.5-5.1)
[2022-01-20 06:08] LABS: BUN/Creatinine Ratio 12.2
[2022-01-20 09:00] VITALS: BP 150/72
[2022-01-20] MEDS: CIPROFLOXACIN HCL 500 MG TAB PO SCH ×2 (09:38→22:04)
[2022-01-20] MEDS: ENOXAPARIN SOD 40 MG/0.4 ML SYRINGE SC SCH (09:38)
[2022-01-20 13:00] VITALS: BP 110/46
[2022-01-20 17:00] VITALS: BP 108/54
[2022-01-20 22:00] VITALS: BP 143/46
[2022-01-21] MEDS: ACCU-CHEK COMFORT CURVE STRIP VI SCH ×6 (00:17→20:00)
[2022-01-21] MEDS: InsuLIN REG 1unit/0.01ml Soln (100units/ml) SC SCH ×6 (00:24→20:32)
[2022-01-21 05:00] VITALS: BP 119/55
[2022-01-21] MEDS: SODIUM CHLOR 0.9% PF (SALINE LOCK) 10ML VIAL/SYR IV SCH ×3 (05:04→22:00)
[2022-01-21] MEDS: SODIUM CHLORIDE 0.9% 1,000 ML IV SCH ×3 (06:23→20:29)
[2022-01-21 09:00] VITALS: BP 158/73
[2022-01-21] MEDS: ENOXAPARIN SOD 40 MG/0.4 ML SYRINGE SC SCH (09:00)
[2022-01-21] MEDS: CIPROFLOXACIN HCL 500 MG TAB PO SCH ×2 (09:00→22:00)
[2022-01-21 13:00] VITALS: BP 85/38
[2022-01-21 17:00] VITALS: BP 128/57
[2022-01-21 22:00] VITALS: BP 146/49
[2022-01-22] MEDS: ACCU-CHEK COMFORT CURVE STRIP VI SCH ×4 (00:23→12:07)
[2022-01-22] MEDS: InsuLIN REG 1unit/0.01ml Soln (100units/ml) SC SCH ×4 (04:25→12:08)
[2022-01-22 05:00] VITALS: BP 150/49
[2022-01-22] MEDS: SODIUM CHLOR 0.9% PF (SALINE LOCK) 10ML VIAL/SYR IV SCH ×2 (05:14→13:57)
[2022-01-22 08:00] VITALS: BP 136/59
[2022-01-22 09:00] VITALS: BP 136/59
[2022-01-22] MEDS: CIPROFLOXACIN HCL 500 MG TAB PO SCH (09:59)
[2022-01-22] MEDS: SODIUM CHLORIDE 0.9% 1,000 ML IV SCH (10:00)
[2022-01-22] MEDS: ENOXAPARIN SOD 40 MG/0.4 ML SYRINGE SC SCH (10:00)
[2022-01-22 13:00] VITALS: BP 150/56
[2022-01-22 15:31] VITALS: BP 138/62
== END 2022-01-22 18:18 | DRG 872 ==
LOC: ER 20:09 → EDBD 20:09 → TELE 01-16 11:32 → TELE-CENTR 01-17 10:12 → CENTRAL 01-18 19:30
PROVIDERS: ADMIT Internal Medicine; ATTEND Internal Medicine Geriatric Medicine
DX: A41.9 Sepsis, unspecified organism (principal); N39.0 Urinary tract infection, site not specified; N17.9 Acute kidney failure, unspecified; E11.22 Type 2 diabetes mellitus with diabetic chronic kidney disease; R65.20 Severe sepsis without septic shock; E11.65 Type 2 diabetes mellitus with hyperglycemia; E78.5 Hyperlipidemia, unspecified; E86.0 Dehydration; E87.6 Hypokalemia; I12.9 Hypertensive chronic kidney disease with stage 1 through stage 4 chronic kidney disease, or unspecified chronic kidney disease; Z20.822 Contact with and (suspected) exposure to COVID-19; F41.9 Anxiety disorder, unspecified; I25.2 Old myocardial infarction; Z80.8 Family history of malignant neoplasm of other organs or systems; Z79.84 Long term (current) use of oral hypoglycemic drugs
CPT/HCPCS: 36415; 71045; 74175; 74176; 80048; 80053; 81001; 82010; 82962; 83605; 83735; 83880; 84132; 84484; 85025; 85379; 85610; 85730; 87040; 87086; 87088; 87186; 93005; 96361; 96365; 96372; 96375; 97110; 97116; 97163; 97530; G0378; J0696; J1815

== ENCOUNTER 2022-02-11 16:05 | Inpatient (IN) | payer OTHER ==
[~2022-02-11] VITALS: Ht 165.1 cm; Wt 84.7 kg
[2022-02-11] MEDS ORDERED: SODIUM CHLORIDE 0.9% 1,000 ML IVB ONE (16:15)
[2022-02-11 17:09] LABS: Basophils # (auto) 0 10 ^3/uL (0-0.2); Basophils % (auto) 0.3 % (0.0-2.0); Eosinophils # (auto) 0 10 ^3/uL (0-0.8); Eosinophils % (auto) 0.1 % (0.0-7.0); Hemoglobin 9.4 g/dL (12.2-16.2); Lymphocytes # (auto) 0.8 10 ^3/uL (0.4-5.4); Lymphocytes % (auto) 9.8 % (10.0-50.0); Mean Corpuscular Hemoglobin 29.1 pg (28.0-32.0); Mean Corpuscular Hgb Conc. 32.3 g/dL (32.0-36.0); Monocytes # (auto) 0.7 10 ^3/uL (0-1.3); Monocytes % (auto) 7.8 % (0.0-12.0); Red Blood Cells 3.22 10^6/uL (4.0-5.20); Red Cell Distribution Width 17.7 % (11.8-14.3); White Blood Cell 8.5 10^3/uL (4.4-10.8)
[2022-02-11 17:25] LABS: Calcium 8.8 mg/dL (8.5-10.1); Chloride 97 mmol/L (98-107); Potassium 4.1 mmol/L (3.5-5.1); Sodium 132 mmol/L (136-145)
[2022-02-11 17:26] LABS: Lactic Acid w/Reflex 7.4 mmol/L (0.4-2.0)
[2022-02-11] MEDS ORDERED: NOREPINEPHRINE 8 MG/250ML KIT 250 ML IV ONE (17:30)
[2022-02-11] MEDS ORDERED: SODIUM CHLORIDE 0.9% 500 ML IV ONE ×2 (17:30→21:15)
[2022-02-11 17:32] LABS: Alanine Aminotransferase 16 U/L (13-56); Albumin 2.5 g/dL (3.4-5.0); Alkaline Phosphatase 128 U/L (45-117); Anion Gap 16 (5-15); Aspartate Aminotransferase 13 U/L (15-37); Bilirubin, Total 0.5 mg/dL (0.2-1.0); Blood Alcohol < 3.0 mg/dL (0-5); Blood Urea Nitrogen 43 mg/dL (7-18); Carbon Dioxide 19 mmol/L (21-32); GFR African American 29 mL/min; GFR Non-African American 24 mL/min; Glucose 260 mg/dL (74-106); Magnesium 2.4 mg/dL (1.6-2.6); Total Protein 6.8 g/dL (6.4-8.2)
[2022-02-11] MEDS: NOREPINEPHRINE 8 MG/250ML KIT 250 ML IV SCH (17:46)
[2022-02-11 18:01] LABS: INR 0.9 (0.9-1.15)
[2022-02-11 18:02] LABS: Partial Thromboplastin Time 23.1 sec (24.6-33.4)
[2022-02-11] MEDS ORDERED: cefTRIAXone 1GM/50ML D5W 50 ML IV ONE (18:30)
[2022-02-11] MEDS ORDERED: SODIUM CHLORIDE 0.9% 1,000 ML IV ONE (18:30)
[2022-02-11] MEDS ORDERED: levoFLOXacin 500MG 100 ML IV ONE (18:30)
[2022-02-11 20:58] LABS: Urine Bacteria NONE SEEN /hpf (None Seen); Urine Blood Negative /uL (Negative); Urine Mucus FEW (None Seen); Urine WBC 2 /hpf (0 - 5)
[2022-02-11] MEDS ORDERED: DEXTROSE (50%) 50ML SYRG IV PRN (22:00)
[2022-02-11] MEDS ORDERED: MORPHINE SULFATE INJ 2 MG/ml SYRG IV PRN (22:00)
[2022-02-11] MEDS ORDERED: NITROGLYCERIN 0.4 MG SL TAB SL PRN (22:00)
[2022-02-11] MEDS ORDERED: ONDANSETRON HCL 4 MG/2 ML VIAL IV PRN (22:00)
[2022-02-11] MEDS ORDERED: ACETAMINOPHEN 325 MG TAB PO PRN (22:00)
[2022-02-11] MEDS ORDERED: HYDROcodone-ACET 5/325MG TAB PO PRN (22:00)
[2022-02-11] MEDS: CLINDAMYCIN 600MG IV 50 ML IV SCH (22:47)
[2022-02-11 23:07] LABS: Albumin 2.6 g/dL (3.4-5.0); Calcium 8.3 mg/dL (8.5-10.1); Potassium 4.9 mmol/L (3.5-5.1)
[2022-02-11 23:09] LABS: Bilirubin, Total 0.4 mg/dL (0.2-1.0); Total Protein 6.5 g/dL (6.4-8.2)
[2022-02-11] MEDS: ACCU-CHEK COMFORT CURVE STRIP VI SCH (23:56)
[2022-02-12] VITALS (73 sets, daily range): BP systolic 57–144; BP diastolic 24–50
[2022-02-12] MEDS ORDERED: InsuLIN REG 1unit/0.01ml Soln (100units/ml) SC SCH
[2022-02-12] MEDS: NOREPINEPHRINE 8 MG/250ML KIT 250 ML IV SCH (02:30)
[2022-02-12] MEDS ORDERED: DEXTROSE (50%) 50ML SYRG IV PRN (03:00)
[2022-02-12] MEDS ORDERED: INSULIN LANTUS (GLARGINE) 1 /0.01ml (100units/ml) SC ONE (03:00)
[2022-02-12 03:36] LABS: Calcium 7.9 mg/dL (8.5-10.1); Potassium 4.7 mmol/L (3.5-5.1)
[2022-02-12 03:42] LABS: BUN/Creatinine Ratio 22.5
[2022-02-12] MEDS: InsuLIN R (HUMAN) 100 UNITS in SODIUM CHL 0.9% 99 ML IV SCH ×4 (04:28→10:23)
[2022-02-12] MEDS: ACCU-CHEK COMFORT CURVE STRIP VI SCH ×8 (04:30→18:00)
[2022-02-12] MEDS ORDERED: CLINDAMYCIN 600MG IV 50 ML IV ONE (05:54)
[2022-02-12] MEDS: InsuLIN REG 1unit/0.01ml Soln (100units/ml) SC SCH ×5 (06:00→22:12)
[2022-02-12] MEDS: CLINDAMYCIN 600MG IV 50 ML IV SCH (06:11)
[2022-02-12] MEDS ORDERED: SODIUM CHLORIDE 0.9% 1,000 ML IV SCH ×2 (07:00→09:00)
[2022-02-12 09:02] LABS: BUN/Creatinine Ratio 23.2; Calcium 8.5 mg/dL (8.5-10.1); Potassium 3.8 mmol/L (3.5-5.1)
[2022-02-12] MEDS ORDERED: PANTOPRAZOLE 40 MG TAB PO SCH (10:00)
[2022-02-12] MEDS ORDERED: NOREPINEPHRINE 8 MG/250ML KIT 250 ML IV ONE (10:51)
[2022-02-12] MEDS ORDERED: PANTOPRAZOLE 40 MG/10 ML VIAL INJ IV ONE (12:00)
[2022-02-12] MEDS: SODIUM CHLORIDE 0.9% 1,000 ML IV SCH ×2 (12:00→19:40)
[2022-02-12] MEDS ORDERED: VANCOMYCIN PER PHARMACY 0 MG IV SCH (12:15)
[2022-02-12] MEDS ORDERED: VANCOMYCIN 1GM/250ML 250 ML IV ONE (13:00)
[2022-02-12 14:07] LABS: Calcium 8.9 mg/dL (8.5-10.1); Potassium 3.9 mmol/L (3.5-5.1)
[2022-02-12 14:11] LABS: BUN/Creatinine Ratio 24.5
[2022-02-12] MEDS ORDERED: cefTRIAXone 1GM/50ML D5W 50 ML IV ONE (21:04)
[2022-02-12] MEDS: cefTRIAXone 1GM/50ML D5W 50 ML IV SCH (22:00)
[2022-02-12 22:06] LABS: Calcium 8.5 mg/dL (8.5-10.1)
[2022-02-13] VITALS (93 sets, daily range): BP systolic 95–160; BP diastolic 31–66
[2022-02-13] MEDS: InsuLIN REG 1unit/0.01ml Soln (100units/ml) SC SCH ×5 (02:00→22:39)
[2022-02-13 04:11] LABS: Basophils # (auto) 0 10 ^3/uL (0-0.2); Basophils % (auto) 0.2 % (0.0-2.0); Eosinophils # (auto) 0 10 ^3/uL (0-0.8); Eosinophils % (auto) 0.2 % (0.0-7.0); Hematocrit 28.2 % (36.0-46.0); Hemoglobin 9.4 g/dL (12.2-16.2); Lymphocytes # (auto) 0.4 10 ^3/uL (0.4-5.4); Lymphocytes % (auto) 6.5 % (10.0-50.0); Mean Corpuscular Hemoglobin 30.1 pg (28.0-32.0); Mean Corpuscular Hgb Conc. 33.2 g/dL (32.0-36.0); Mean Corpuscular Volume 90.6 fL (80.0-100.0); Monocytes # (auto) 0.7 10 ^3/uL (0-1.3); Monocytes % (auto) 9.8 % (0.0-12.0); Neutrophils # (auto) 5.6 10 ^3/uL (1.6-8.6); Neutrophils % (auto) 83.3 % (37.0-80.0); Red Blood Cells 3.11 10^6/uL (4.0-5.20); Red Cell Distribution Width 18.1 % (11.8-14.3); White Blood Cell 6.8 10^3/uL (4.4-10.8)
[2022-02-13 04:21] LABS: Calcium 8.2 mg/dL (8.5-10.1); Magnesium 2.1 mg/dL (1.6-2.6); Potassium 3.7 mmol/L (3.5-5.1)
[2022-02-13 04:26] LABS: Bilirubin, Total 0.4 mg/dL (0.2-1.0); Total Protein 5.7 g/dL (6.4-8.2)
[2022-02-13] MEDS: ACCU-CHEK COMFORT CURVE STRIP VI SCH ×5 (06:00→22:00)
[2022-02-13] MEDS: SODIUM CHLORIDE 0.9% 1,000 ML IV SCH ×3 (08:00→19:00)
[2022-02-13] MEDS: INSULIN LANTUS (GLARGINE) 1 /0.01ml (100units/ml) SC SCH (10:27)
[2022-02-13] MEDS: PANTOPRAZOLE 40 MG/10 ML VIAL INJ IV SCH (10:28)
[2022-02-13] MEDS ORDERED: VANCOMYCIN 1GM/250ML 250 ML IV SCH (13:00)
[2022-02-13] MEDS ORDERED: cefTRIAXone 1GM/50ML D5W 50 ML IV ONE (22:12)
[2022-02-13] MEDS: cefTRIAXone 1GM/50ML D5W 50 ML IV SCH (22:39)
[2022-02-14] VITALS (43 sets, daily range): BP systolic 92–171; BP diastolic 43–76
[2022-02-14 04:22] LABS: Basophils # (auto) 0 10 ^3/uL (0-0.2); Basophils % (auto) 0.4 % (0.0-2.0); Eosinophils # (auto) 0.1 10 ^3/uL (0-0.8); Eosinophils % (auto) 3.2 % (0.0-7.0); Hematocrit 25.7 % (36.0-46.0); Hemoglobin 8.6 g/dL (12.2-16.2); Lymphocytes # (auto) 0.8 10 ^3/uL (0.4-5.4); Lymphocytes % (auto) 19.6 % (10.0-50.0); Mean Corpuscular Hemoglobin 29.6 pg (28.0-32.0); Mean Corpuscular Hgb Conc. 33.2 g/dL (32.0-36.0); Mean Corpuscular Volume 88.9 fL (80.0-100.0); Monocytes # (auto) 0.4 10 ^3/uL (0-1.3); Monocytes % (auto) 10.1 % (0.0-12.0); Neutrophils # (auto) 2.6 10 ^3/uL (1.6-8.6); Neutrophils % (auto) 66.7 % (37.0-80.0); Red Blood Cells 2.89 10^6/uL (4.0-5.20); Red Cell Distribution Width 17.9 % (11.8-14.3); White Blood Cell 3.9 10^3/uL (4.4-10.8)
[2022-02-14 04:39] LABS: BUN/Creatinine Ratio 17.9; Calcium 7.9 mg/dL (8.5-10.1); Magnesium 1.9 mg/dL (1.6-2.6); Potassium 3.3 mmol/L (3.5-5.1)
[2022-02-14] MEDS: SODIUM CHLORIDE 0.9% 1,000 ML IV SCH (05:00)
[2022-02-14] MEDS: ACCU-CHEK COMFORT CURVE STRIP VI SCH ×4 (06:46→22:00)
[2022-02-14] MEDS: InsuLIN REG 1unit/0.01ml Soln (100units/ml) SC SCH ×4 (06:47→22:49)
[2022-02-14] MEDS: PANTOPRAZOLE 40 MG/10 ML VIAL INJ IV SCH (10:00)
[2022-02-14] MEDS: INSULIN LANTUS (GLARGINE) 1 /0.01ml (100units/ml) SC SCH (13:28)
[2022-02-14] MEDS ORDERED: POTASSIUM CHL 20 Meq TABLET PO ONE (15:00)
[2022-02-14] MEDS ORDERED: VANCOMYCIN 1GM/250ML 250 ML IV SCH (18:30)
[2022-02-14] MEDS: VANCOMYCIN 1GM/250ML 250 ML IV SCH (19:26)
[2022-02-14] MEDS ORDERED: cefTRIAXone 1GM/50ML D5W 50 ML IV SCH (22:00)
[2022-02-15] VITALS (19 sets, daily range): BP systolic 104–130; BP diastolic 39–76
[2022-02-15 03:39] LABS: Basophils # (auto) 0 10 ^3/uL (0-0.2); Basophils % (auto) 0.3 % (0.0-2.0); Eosinophils # (auto) 0.1 10 ^3/uL (0-0.8); Eosinophils % (auto) 2.1 % (0.0-7.0); Hematocrit 27.2 % (36.0-46.0); Hemoglobin 9.1 g/dL (12.2-16.2); Lymphocytes # (auto) 1.3 10 ^3/uL (0.4-5.4); Mean Corpuscular Hemoglobin 29.8 pg (28.0-32.0); Mean Corpuscular Hgb Conc. 33.3 g/dL (32.0-36.0); Mean Corpuscular Volume 89.4 fL (80.0-100.0); Monocytes # (auto) 0.4 10 ^3/uL (0-1.3); Monocytes % (auto) 8.3 % (0.0-12.0); Neutrophils # (auto) 3.2 10 ^3/uL (1.6-8.6); Neutrophils % (auto) 63.3 % (37.0-80.0); Red Blood Cells 3.05 10^6/uL (4.0-5.20); Red Cell Distribution Width 17.5 % (11.8-14.3)
[2022-02-15 03:54] LABS: BUN/Creatinine Ratio 8.1; Calcium 7.8 mg/dL (8.5-10.1); Magnesium 1.5 mg/dL (1.6-2.6); Potassium 3.2 mmol/L (3.5-5.1)
[2022-02-15] MEDS: InsuLIN REG 1unit/0.01ml Soln (100units/ml) SC SCH ×2 (06:15→17:32)
[2022-02-15] MEDS: ACCU-CHEK COMFORT CURVE STRIP VI SCH ×2 (06:15→11:30)
[2022-02-15] MEDS: PANTOPRAZOLE 40 MG/10 ML VIAL INJ IV SCH (10:00)
[2022-02-15] MEDS ORDERED: POTASSIUM CHL 20 Meq TABLET PO ONE (11:30)
[2022-02-15] MEDS: VANCOMYCIN 1GM/250ML 250 ML IV SCH (12:00)
[2022-02-15] MEDS ORDERED: DOXY-286 PO (12:38)
[2022-02-15] MEDS: INSULIN LANTUS (GLARGINE) 1 /0.01ml (100units/ml) SC SCH (17:33)
== END 2022-02-15 17:19 | disposition home health service (06) | DRG 871 ==
LOC: EDBD 16:05 → ER 16:05 → TELE 21:59 → UNDODISIN 22:37 → ICU WEST 02-12 03:44
PROVIDERS: ADMIT Nurse Practitioner; ATTEND Internal Medicine Geriatric Medicine
DX: A41.9 Sepsis, unspecified organism (principal); E11.10 Type 2 diabetes mellitus with ketoacidosis without coma; E43 Unspecified severe protein-calorie malnutrition; G93.41 Metabolic encephalopathy; R65.21 Severe sepsis with septic shock; N17.9 Acute kidney failure, unspecified; N39.0 Urinary tract infection, site not specified; I13.0 Hypertensive heart and chronic kidney disease with heart failure and stage 1 through stage 4 chronic kidney disease, or unspecified chronic kidney disease; L08.9 Local infection of the skin and subcutaneous tissue, unspecified; E86.0 Dehydration; Z20.822 Contact with and (suspected) exposure to COVID-19; E78.5 Hyperlipidemia, unspecified; I50.9 Heart failure, unspecified; N18.9 Chronic kidney disease, unspecified; I25.2 Old myocardial infarction; Z86.73 Personal history of transient ischemic attack (TIA), and cerebral infarction without residual deficits; Z68.31 Body mass index [BMI] 31.0-31.9, adult
CPT/HCPCS: 36415; 36600; 70450; 71045; 73700; 80048; 80053; 80202; 80320; 81001; 82010; 82805; 82962; 83605; 83735; 83880; 84484; 85025; 85610; 85730; 87040; 87081; 87086; 87088; 93005; 96361; 96365; 96367; 96372; 97110; 97116; 97163; 97530; 99291; C9113; G0378; J0696; J1815; J1956; J3490

== ENCOUNTER 2022-03-12 18:08 | Inpatient (IN) | payer OTHER ==
[~2022-03-12] VITALS: Ht 170.2 cm; Wt 84.3 kg
[~2022-03-12 18:08] MED LIST changes: -BACL10TA PO; +DOXY-286 PO; -ENAL10TA13 OR; -SIMV10TA84 OR
[2022-03-12 19:31] LABS: Basophils # (auto) 0 10 ^3/uL (0-0.2); Basophils % (auto) 0.4 % (0.0-2.0); Eosinophils # (auto) 0.2 10 ^3/uL (0-0.8); Eosinophils % (auto) 2.7 % (0.0-7.0); Hematocrit 30.9 % (36.0-46.0); Hemoglobin 10.2 g/dL (12.2-16.2); Lymphocytes % (auto) 31.4 % (10.0-50.0); Mean Corpuscular Hemoglobin 29.5 pg (28.0-32.0); Mean Corpuscular Hgb Conc. 32.9 g/dL (32.0-36.0); Mean Corpuscular Volume 89.7 fL (80.0-100.0); Monocytes # (auto) 0.6 10 ^3/uL (0-1.3); Monocytes % (auto) 9.5 % (0.0-12.0); Neutrophils # (auto) 3.5 10 ^3/uL (1.6-8.6); Nucleated Red Blood Cells % 0.1 %; Red Blood Cells 3.45 10^6/uL (4.0-5.20); Red Cell Distribution Width 15.7 % (11.8-14.3); White Blood Cell 6.3 10^3/uL (4.4-10.8)
[2022-03-12 19:57] LABS: Potassium 4.5 mmol/L (3.5-5.1)
[2022-03-12 20:03] LABS: Albumin 2.7 g/dL (3.4-5.0); BUN/Creatinine Ratio 24.7; Bilirubin, Total 0.4 mg/dL (0.2-1.0); Calcium 8.6 mg/dL (8.5-10.1); Total Protein 7.2 g/dL (6.4-8.2)
[2022-03-12] MEDS ORDERED: DEXTROSE (50%) 50ML SYRG IV ONE (20:30)
[2022-03-12 21:23] LABS: Lactic Acid w/Reflex 2.6 mmol/L (0.4-2.0)
[2022-03-12] MEDS ORDERED: DEXTROSE (50%) 50ML SYRG IV PRN (22:30)
[2022-03-12] MEDS ORDERED: NITROGLYCERIN 0.4 MG SL TAB SL PRN (22:30)
[2022-03-12] MEDS ORDERED: SODIUM CHLORIDE 0.9% 1,000 ML IV ONE (22:30)
[2022-03-12] MEDS ORDERED: ONDANSETRON HCL 4 MG/2 ML VIAL IV PRN (22:30)
[2022-03-12] MEDS ORDERED: ACETAMINOPHEN 325 MG TAB PO PRN (22:30)
[2022-03-12] MEDS ORDERED: MORPHINE SULFATE INJ 2 MG/ml SYRG IV PRN (22:30)
[2022-03-12] MEDS: ACCU-CHEK COMFORT CURVE STRIP VI SCH (23:41)
[2022-03-13 03:59] VITALS: BP 119/57
[2022-03-13] MEDS: ACCU-CHEK COMFORT CURVE STRIP VI SCH ×5 (04:14→20:07)
[2022-03-13] MEDS: InsuLIN REG 1unit/0.01ml Soln (100units/ml) SC SCH ×6 (04:16→20:09)
[2022-03-13 05:00] VITALS: BP 154/54
[2022-03-13 09:00] VITALS: BP 166/49
[2022-03-13] MEDS: ASPirin 81 mg TAB PO SCH (09:30)
[2022-03-13] MEDS: ENOXAPARIN SOD 40 MG/0.4 ML SYRINGE SC SCH (09:30)
[2022-03-13 09:42] LABS: Basophils # (auto) 0 10 ^3/uL (0-0.2); Basophils % (auto) 0.5 % (0.0-2.0); Eosinophils # (auto) 0.2 10 ^3/uL (0-0.8); Eosinophils % (auto) 3.4 % (0.0-7.0); Hematocrit 28.9 % (36.0-46.0); Hemoglobin 9.4 g/dL (12.2-16.2); Lymphocytes # (auto) 1.9 10 ^3/uL (0.4-5.4); Lymphocytes % (auto) 35.6 % (10.0-50.0); Mean Corpuscular Hemoglobin 29.4 pg (28.0-32.0); Mean Corpuscular Hgb Conc. 32.7 g/dL (32.0-36.0); Mean Corpuscular Volume 89.8 fL (80.0-100.0); Monocytes # (auto) 0.5 10 ^3/uL (0-1.3); Monocytes % (auto) 9.8 % (0.0-12.0); Neutrophils # (auto) 2.7 10 ^3/uL (1.6-8.6); Neutrophils % (auto) 50.7 % (37.0-80.0); Red Blood Cells 3.21 10^6/uL (4.0-5.20); Red Cell Distribution Width 15.9 % (11.8-14.3); White Blood Cell 5.3 10^3/uL (4.4-10.8)
[2022-03-13] MEDS ORDERED: PANTOPRAZOLE 40 MG TAB PO SCH (10:00)
[2022-03-13 10:05] LABS: Albumin 2.5 g/dL (3.4-5.0); Calcium 8.3 mg/dL (8.5-10.1); Potassium 4.5 mmol/L (3.5-5.1)
[2022-03-13 10:09] LABS: BUN/Creatinine Ratio 31.1; Bilirubin, Total 0.3 mg/dL (0.2-1.0)
[2022-03-13 12:59] VITALS: BP 136/58
[2022-03-13 17:00] VITALS: BP 135/61
[2022-03-13] MEDS: PRAVASTATIN SODIUM 20 MG TAB PO SCH (20:10)
[2022-03-13 22:00] VITALS: BP 138/63
[2022-03-14] MEDS: ACCU-CHEK COMFORT CURVE STRIP VI SCH ×7 (00:16→23:52)
[2022-03-14] MEDS: InsuLIN REG 1unit/0.01ml Soln (100units/ml) SC SCH ×7 (00:18→23:52)
[2022-03-14 05:00] VITALS: BP 115/51
[2022-03-14 06:12] LABS: Basophils # (auto) 0 10 ^3/uL (0-0.2); Basophils % (auto) 0.4 % (0.0-2.0); Eosinophils # (auto) 0.2 10 ^3/uL (0-0.8); Eosinophils % (auto) 3.6 % (0.0-7.0); Hematocrit 30.6 % (36.0-46.0); Hemoglobin 10.1 g/dL (12.2-16.2); Lymphocytes # (auto) 1.7 10 ^3/uL (0.4-5.4); Lymphocytes % (auto) 27.8 % (10.0-50.0); Mean Corpuscular Hemoglobin 29.2 pg (28.0-32.0); Mean Corpuscular Hgb Conc. 32.9 g/dL (32.0-36.0); Mean Corpuscular Volume 88.6 fL (80.0-100.0); Monocytes # (auto) 0.5 10 ^3/uL (0-1.3); Monocytes % (auto) 7.8 % (0.0-12.0); Neutrophils # (auto) 3.6 10 ^3/uL (1.6-8.6); Neutrophils % (auto) 60.4 % (37.0-80.0); Red Blood Cells 3.46 10^6/uL (4.0-5.20); Red Cell Distribution Width 15.5 % (11.8-14.3)
[2022-03-14 06:34] LABS: BUN/Creatinine Ratio 30.6; Calcium 8.8 mg/dL (8.5-10.1); Magnesium 2.1 mg/dL (1.6-2.6); Potassium 4.9 mmol/L (3.5-5.1)
[2022-03-14] MEDS: ENOXAPARIN SOD 40 MG/0.4 ML SYRINGE SC SCH (08:06)
[2022-03-14] MEDS: ASPirin 81 mg TAB PO SCH (08:06)
[2022-03-14 09:00] VITALS: BP 129/67
[2022-03-14 13:00] VITALS: BP 105/54
[2022-03-14 17:00] VITALS: BP 132/63
[2022-03-14 20:00] VITALS: BP 131/62
[2022-03-14] MEDS: PRAVASTATIN SODIUM 20 MG TAB PO SCH (21:06)
[2022-03-14 22:00] VITALS: BP 131/62
[2022-03-15] MEDS: ACCU-CHEK COMFORT CURVE STRIP VI SCH ×5 (03:47→22:14)
[2022-03-15] MEDS: InsuLIN REG 1unit/0.01ml Soln (100units/ml) SC SCH ×5 (03:48→22:17)
[2022-03-15 05:00] VITALS: BP 119/47
[2022-03-15] MEDS: SODIUM CHLORIDE 0.9% 1,000 ML IV SCH ×2 (05:37→18:10)
[2022-03-15 09:00] VITALS: BP 138/50
[2022-03-15] MEDS: ENOXAPARIN SOD 40 MG/0.4 ML SYRINGE SC SCH (09:10)
[2022-03-15] MEDS: ASPirin 81 mg TAB PO SCH (09:10)
[2022-03-15] MEDS ORDERED: DEXTROSE (50%) 50ML SYRG IV PRN (10:30)
[2022-03-15] MEDS ORDERED: INSULIN LANTUS (GLARGINE) 1 /0.01ml (100units/ml) SC ONE (10:30)
[2022-03-15 13:00] VITALS: BP 149/62
[2022-03-15 17:00] VITALS: BP 132/52
[2022-03-15 18:59] LABS: Urine Bacteria NONE SEEN /hpf (None Seen); Urine Blood Negative /uL (Negative); Urine Specific Gravity 1.012 (1.001-1.035); Urine WBC 3 /hpf (0 - 5)
[2022-03-15 22:00] VITALS: BP 120/49
[2022-03-15] MEDS: INSULIN LANTUS (GLARGINE) 1 /0.01ml (100units/ml) SC SCH (22:15)
[2022-03-15] MEDS: PRAVASTATIN SODIUM 20 MG TAB PO SCH (22:17)
[2022-03-16 05:00] VITALS: BP 131/51
[2022-03-16] MEDS: ACCU-CHEK COMFORT CURVE STRIP VI SCH ×4 (06:44→21:09)
[2022-03-16] MEDS: InsuLIN REG 1unit/0.01ml Soln (100units/ml) SC SCH ×4 (06:55→21:15)
[2022-03-16 08:00] VITALS: BP 139/55
[2022-03-16 09:00] VITALS: BP 137/55
[2022-03-16] MEDS: ASPirin 81 mg TAB PO SCH (11:10)
[2022-03-16] MEDS: ENOXAPARIN SOD 40 MG/0.4 ML SYRINGE SC SCH (11:10)
[2022-03-16 13:00] VITALS: BP 122/51
[2022-03-16] MEDS: SODIUM CHLORIDE 0.9% 1,000 ML IV SCH (15:34)
[2022-03-16 17:00] VITALS: BP 154/56
[2022-03-16] MEDS: INSULIN LANTUS (GLARGINE) 1 /0.01ml (100units/ml) SC SCH (21:11)
[2022-03-16] MEDS: PRAVASTATIN SODIUM 20 MG TAB PO SCH (21:16)
[2022-03-16 22:00] VITALS: BP 138/64
[2022-03-17 05:00] VITALS: BP 148/66
[2022-03-17] MEDS: SODIUM CHLORIDE 0.9% 1,000 ML IV SCH (05:27)
[2022-03-17] MEDS: ACCU-CHEK COMFORT CURVE STRIP VI SCH ×4 (06:17→21:18)
[2022-03-17] MEDS: InsuLIN REG 1unit/0.01ml Soln (100units/ml) SC SCH ×4 (06:19→21:22)
[2022-03-17] MEDS ORDERED: INSULIN LANTUS (GLARGINE) 1 /0.01ml (100units/ml) SC ONE (07:00)
[2022-03-17 08:00] VITALS: BP 120/75
[2022-03-17 09:00] VITALS: BP 120/75
[2022-03-17] MEDS: ASPirin 81 mg TAB PO SCH (10:09)
[2022-03-17] MEDS: ENOXAPARIN SOD 40 MG/0.4 ML SYRINGE SC SCH (10:09)
[2022-03-17 12:59] VITALS: BP 100/48
[2022-03-17 17:22] VITALS: BP 145/64
[2022-03-17] MEDS: PRAVASTATIN SODIUM 20 MG TAB PO SCH (21:18)
[2022-03-17 22:00] VITALS: BP 154/64
[2022-03-17] MEDS ORDERED: INSULIN LANTUS (GLARGINE) 1 /0.01ml (100units/ml) SC SCH (22:00)
[2022-03-18 05:00] VITALS: BP 142/58
[2022-03-18] MEDS: ACCU-CHEK COMFORT CURVE STRIP VI SCH ×3 (05:50→18:22)
[2022-03-18] MEDS: InsuLIN REG 1unit/0.01ml Soln (100units/ml) SC SCH ×3 (05:52→18:24)
[2022-03-18] MEDS: ASPirin 81 mg TAB PO SCH (10:21)
[2022-03-18] MEDS: ENOXAPARIN SOD 40 MG/0.4 ML SYRINGE SC SCH (10:21)
[2022-03-18] MEDS ORDERED: INSLANTI SC (15:15)
== END 2022-03-18 20:05 | disposition home or self-care (01) | DRG 314 ==
LOC: EDBD 18:08 → ER 18:12 → TELE 22:31 → TELE-CENTR 03-13 03:00
PROVIDERS: ADMIT Nurse Practitioner; ATTEND Internal Medicine Geriatric Medicine
DX: I95.9 Hypotension, unspecified (principal); G93.41 Metabolic encephalopathy; E11.649 Type 2 diabetes mellitus with hypoglycemia without coma; R55 Syncope and collapse; D64.9 Anemia, unspecified; E11.22 Type 2 diabetes mellitus with diabetic chronic kidney disease; E78.5 Hyperlipidemia, unspecified; F32.A Depression, unspecified; F41.9 Anxiety disorder, unspecified; R77.8 Other specified abnormalities of plasma proteins; Z20.822 Contact with and (suspected) exposure to COVID-19; H54.62 Unqualified visual loss, left eye, normal vision right eye; S91.301A Unspecified open wound, right foot, initial encounter; E11.622 Type 2 diabetes mellitus with other skin ulcer; X58.XXXA Exposure to other specified factors, initial encounter; I12.9 Hypertensive chronic kidney disease with stage 1 through stage 4 chronic kidney disease, or unspecified chronic kidney disease; N18.9 Chronic kidney disease, unspecified; Z74.01 Bed confinement status; Z86.73 Personal history of transient ischemic attack (TIA), and cerebral infarction without residual deficits; Z79.4 Long term (current) use of insulin; Y93.89 Activity, other specified; Y92.89 Other specified places as the place of occurrence of the external cause; Y99.8 Other external cause status
CPT/HCPCS: 36415; 71045; 80048; 80053; 81001; 82140; 82962; 83605; 83735; 84484; 85025; 87040; 87081; 87086; 93005; 96361; 96374; 97110; 97116; 97163; 97530; 99291; G0378; J1815

== ENCOUNTER 2022-04-30 04:18 | Inpatient (IN) | payer OTHER ==
[~2022-04-30] VITALS: Ht 172.7 cm; Wt 91.9 kg
[~2022-04-30 04:18] MED LIST changes: -INSLANTI; -LISI-275 PO
[2022-04-30 05:10] LABS: Basophils # (auto) 0 10 ^3/uL (0-0.2); Basophils % (auto) 0.4 % (0.0-2.0); Eosinophils # (auto) 0.1 10 ^3/uL (0-0.8); Eosinophils % (auto) 2.2 % (0.0-7.0); Hematocrit 33.6 % (36.0-46.0); Hemoglobin 11.2 g/dL (12.2-16.2); Lymphocytes # (auto) 1.6 10 ^3/uL (0.4-5.4); Lymphocytes % (auto) 32.8 % (10.0-50.0); Mean Corpuscular Hemoglobin 28.9 pg (28.0-32.0); Mean Corpuscular Hgb Conc. 33.3 g/dL (32.0-36.0); Mean Corpuscular Volume 86.8 fL (80.0-100.0); Monocytes # (auto) 0.7 10 ^3/uL (0-1.3); Monocytes % (auto) 13.7 % (0.0-12.0); Neutrophils # (auto) 2.6 10 ^3/uL (1.6-8.6); Neutrophils % (auto) 50.9 % (37.0-80.0); Red Blood Cells 3.88 10^6/uL (4.0-5.20)
[2022-04-30 05:25] LABS: Albumin 2.6 g/dL (3.4-5.0); BUN/Creatinine Ratio 19.2; Bilirubin, Total 0.2 mg/dL (0.2-1.0); Calcium 8.1 mg/dL (8.5-10.1); Magnesium 2.2 mg/dL (1.6-2.6); Potassium 4.1 mmol/L (3.5-5.1)
[2022-04-30] MEDS ORDERED: SODIUM CHLORIDE 0.9% 1,000 ML IV ONE (05:30)
[2022-04-30] MEDS ORDERED: ASPirin 325 MG TAB PO ONE (06:15)
[2022-04-30] MEDS ORDERED: NITROGLYCERIN 0.4 MG SL TAB SL PRN (10:30)
[2022-04-30] MEDS ORDERED: MORPHINE SULFATE INJ 2 MG/ml SYRG IV PRN (10:30)
[2022-04-30] MEDS ORDERED: DEXTROSE (50%) 50ML SYRG IV PRN (10:45)
[2022-04-30] MEDS ORDERED: hydrALAZINE HCL 20 MG/ML VL IV PRN (11:15)
[2022-04-30] MEDS ORDERED: DOCUSATE SOD 100 MG CAP PO PRN (11:15)
[2022-04-30 11:17] LABS: Cholesterol 122 mg/dL (< 200)
[2022-04-30] MEDS: SODIUM CHLORIDE 0.9% 1,000 ML IV SCH ×2 (11:19→21:00)
[2022-04-30 11:20] LABS: HDL Cholesterol 44 mg/dL (40-59); LDL Cholesterol 74 mg/dL (< 100); Triglycerides 87 mg/dL (< 150)
[2022-04-30] MEDS: ACCU-CHEK COMFORT CURVE STRIP VI SCH ×2 (11:46→17:08)
[2022-04-30] MEDS: InsuLIN REG 1unit/0.01ml Soln (100units/ml) SC SCH ×3 (11:51→22:00)
[2022-04-30] MEDS ORDERED: PATIENTS OWN MEDICATION (Gabapentin 600 MG) PO SCH (14:00)
[2022-04-30] MEDS: CLINDAMYCIN 300MG IV 50 ML IV SCH (14:11)
[2022-04-30 18:42] LABS: Urine Bacteria NONE SEEN /hpf (None Seen); Urine Blood Negative /uL (Negative); Urine Mucus FEW (None Seen); Urine Specific Gravity 1.019 (1.001-1.035); Urine WBC 936 /hpf (0 - 5); Urine WBC Clumps PRESENT /hpf (None Seen)
[2022-04-30] MEDS: INSULIN LANTUS (GLARGINE) 1 /0.01ml (100units/ml) SC SCH (22:00)
[2022-04-30 23:24] VITALS: BP 117/55
[2022-05-01] VITALS (7 sets, daily range): BP systolic 117–150; BP diastolic 50–68
[2022-05-01] MEDS: CLINDAMYCIN 300MG IV 50 ML IV SCH ×2 (00:50→06:46)
[2022-05-01] MEDS: PRAVASTATIN SODIUM 20 MG TAB PO SCH ×2 (00:50→23:37)
[2022-05-01] MEDS: ACCU-CHEK COMFORT CURVE STRIP VI SCH ×5 (01:00→23:57)
[2022-05-01] MEDS: SODIUM CHLORIDE 0.9% 1,000 ML IV SCH ×3 (03:00→18:30)
[2022-05-01 06:00] LABS: Basophils # (auto) 0 10 ^3/uL (0-0.2); Basophils % (auto) 0.2 % (0.0-2.0); Eosinophils # (auto) 0.2 10 ^3/uL (0-0.8); Eosinophils % (auto) 2.6 % (0.0-7.0); Hematocrit 29.9 % (36.0-46.0); Hemoglobin 10.3 g/dL (12.2-16.2); Lymphocytes # (auto) 2.1 10 ^3/uL (0.4-5.4); Lymphocytes % (auto) 33.3 % (10.0-50.0); Mean Corpuscular Hemoglobin 29.8 pg (28.0-32.0); Mean Corpuscular Hgb Conc. 34.4 g/dL (32.0-36.0); Mean Corpuscular Volume 86.6 fL (80.0-100.0); Monocytes # (auto) 0.9 10 ^3/uL (0-1.3); Monocytes % (auto) 13.6 % (0.0-12.0); Neutrophils # (auto) 3.1 10 ^3/uL (1.6-8.6); Neutrophils % (auto) 50.3 % (37.0-80.0); Red Blood Cells 3.45 10^6/uL (4.0-5.20); Red Cell Distribution Width 14.8 % (11.8-14.3); White Blood Cell 6.2 10^3/uL (4.4-10.8)
[2022-05-01] MEDS: BUPROPION 150 MG PO SCH (07:00)
[2022-05-01] MEDS: InsuLIN REG 1unit/0.01ml Soln (100units/ml) SC SCH ×3 (07:08→18:50)
[2022-05-01] MEDS: ASPirin 81 mg TAB PO SCH (09:25)
[2022-05-01] MEDS: ENOXAPARIN SOD 40 MG/0.4 ML SYRINGE SC SCH (09:26)
[2022-05-01] MEDS ORDERED: buPROPion HCL 100 MG TAB PO SCH (10:00)
[2022-05-01] MEDS ORDERED: PIOGLITAZONE HYDROCHLORIDE 30 MG TAB PO SCH (10:00)
[2022-05-01] MEDS ORDERED: cefTRIAXone 1GM/50ML D5W 50 ML IV ONE (10:30)
[2022-05-01] MEDS ORDERED: LORazepam 2MG/ML-1ML VIAL IV PRN (13:30)
[2022-05-01 14:18] LABS: Free T4 (Free Thyroxine) 1.07 ng/dL (0.89-1.76)
[2022-05-01 14:19] LABS: Folate (Folic Acid) > 24.00 ng/mL (5.38-24)
[2022-05-02] MEDS: InsuLIN REG 1unit/0.01ml Soln (100units/ml) SC SCH ×5 (00:02→22:43)
[2022-05-02] MEDS: INSULIN LANTUS (GLARGINE) 1 /0.01ml (100units/ml) SC SCH ×2 (00:03→22:44)
[2022-05-02] MEDS: SODIUM CHLORIDE 0.9% 1,000 ML IV SCH ×3 (03:00→22:58)
[2022-05-02 05:24] VITALS: BP 102/44
[2022-05-02 06:15] LABS: Basophils # (auto) 0 10 ^3/uL (0-0.2); Basophils % (auto) 0.3 % (0.0-2.0); Eosinophils # (auto) 0 10 ^3/uL (0-0.8); Eosinophils % (auto) 0.5 % (0.0-7.0); Hematocrit 28.8 % (36.0-46.0); Hemoglobin 9.7 g/dL (12.2-16.2); Lymphocytes # (auto) 1.9 10 ^3/uL (0.4-5.4); Lymphocytes % (auto) 26.3 % (10.0-50.0); Mean Corpuscular Hemoglobin 29.4 pg (28.0-32.0); Mean Corpuscular Hgb Conc. 33.8 g/dL (32.0-36.0); Mean Corpuscular Volume 86.8 fL (80.0-100.0); Monocytes # (auto) 1.1 10 ^3/uL (0-1.3); Monocytes % (auto) 15.8 % (0.0-12.0); Neutrophils # (auto) 4.1 10 ^3/uL (1.6-8.6); Neutrophils % (auto) 57.1 % (37.0-80.0); Red Blood Cells 3.32 10^6/uL (4.0-5.20); White Blood Cell 7.1 10^3/uL (4.4-10.8)
[2022-05-02 06:21] LABS: Calcium 8.4 mg/dL (8.5-10.1); Magnesium 2.3 mg/dL (1.6-2.6); Potassium 4.1 mmol/L (3.5-5.1)
[2022-05-02 06:28] LABS: BUN/Creatinine Ratio 29.8
[2022-05-02] MEDS: ACCU-CHEK COMFORT CURVE STRIP VI SCH ×4 (06:46→22:28)
[2022-05-02] MEDS: BUPROPION 150 MG PO SCH (07:00)
[2022-05-02 07:55] VITALS: BP 127/57
[2022-05-02] MEDS: ENOXAPARIN SOD 40 MG/0.4 ML SYRINGE SC SCH (09:18)
[2022-05-02] MEDS: ASPirin 81 mg TAB PO SCH (09:19)
[2022-05-02] MEDS: cefTRIAXone 1GM/50ML D5W 50 ML IV SCH (09:19)
[2022-05-02 12:34] VITALS: BP 122/57
[2022-05-02 16:40] VITALS: BP 145/61
[2022-05-02 22:00] VITALS: BP 159/71
[2022-05-02] MEDS: PRAVASTATIN SODIUM 20 MG TAB PO SCH (22:36)
[2022-05-03 05:00] VITALS: BP 138/61
[2022-05-03] MEDS: BUPROPION 150 MG PO SCH (06:17)
[2022-05-03] MEDS: InsuLIN REG 1unit/0.01ml Soln (100units/ml) SC SCH ×3 (06:18→17:22)
[2022-05-03] MEDS: ACCU-CHEK COMFORT CURVE STRIP VI SCH ×3 (06:18→17:22)
[2022-05-03 09:00] VITALS: BP 133/70
[2022-05-03] MEDS: SODIUM CHLORIDE 0.9% 1,000 ML IV SCH (09:06)
[2022-05-03] MEDS: cefTRIAXone 1GM/50ML D5W 50 ML IV SCH (09:06)
[2022-05-03] MEDS: ASPirin 81 mg TAB PO SCH (09:07)
[2022-05-03] MEDS: ENOXAPARIN SOD 40 MG/0.4 ML SYRINGE SC SCH (09:07)
[2022-05-03] MEDS ORDERED: CIPR250T3 PO (10:33)
[2022-05-03 13:00] VITALS: BP 139/65
[2022-05-03 16:56] VITALS: BP 120/50
== END 2022-05-03 18:32 | disposition home health service (06) | DRG 280 ==
LOC: EDBD 04:18 → ER 04:18 → TELE 10:34 → TELE-WESTW 21:38
PROVIDERS: ADMIT Registered Nurse; ATTEND Internal Medicine Geriatric Medicine
DX: R55 Syncope and collapse (principal); E43 Unspecified severe protein-calorie malnutrition; I21.A1 Myocardial infarction type 2; N17.0 Acute kidney failure with tubular necrosis; N39.0 Urinary tract infection, site not specified; I69.354 Hemiplegia and hemiparesis following cerebral infarction affecting left non-dominant side; Z82.0 Family history of epilepsy and other diseases of the nervous system; E11.621 Type 2 diabetes mellitus with foot ulcer; Z20.822 Contact with and (suspected) exposure to COVID-19; E86.0 Dehydration; N18.9 Chronic kidney disease, unspecified; E11.65 Type 2 diabetes mellitus with hyperglycemia; S90.921A Unspecified superficial injury of right foot, initial encounter; D64.9 Anemia, unspecified; E11.22 Type 2 diabetes mellitus with diabetic chronic kidney disease; H54.62 Unqualified visual loss, left eye, normal vision right eye; I12.9 Hypertensive chronic kidney disease with stage 1 through stage 4 chronic kidney disease, or unspecified chronic kidney disease; E78.5 Hyperlipidemia, unspecified; I25.10 Atherosclerotic heart disease of native coronary artery without angina pectoris; L97.509 Non-pressure chronic ulcer of other part of unspecified foot with unspecified severity; Z79.4 Long term (current) use of insulin; Z68.30 Body mass index [BMI] 30.0-30.9, adult; Z80.8 Family history of malignant neoplasm of other organs or systems; Z79.82 Long term (current) use of aspirin; Z79.899 Other long term (current) drug therapy
CPT/HCPCS: 36415; 36600; 70450; 70551; 71045; 80048; 80053; 80061; 81001; 82010; 82607; 82746; 82805; 82962; 83036; 83735; 83880; 84439; 84443; 84484; 85025; 87040; 87086; 87205; 87426; 93005; 93306; 93886; 95819; 96360; 97110; 97116; G0378; J0696; J1815; J3490

== ENCOUNTER 2022-05-13 18:01 | Inpatient (IN) | payer OTHER ==
[~2022-05-13] VITALS: Ht 167.6 cm; Wt 85.7 kg
[~2022-05-13 18:01] MED LIST changes: -BUPR100T15 PO; +CIPR250T3 PO; -DOXY-286 PO
[2022-05-13] MEDS ORDERED: SODIUM CHLORIDE 0.9% 250 ML IV ONE (19:45)
[2022-05-13 21:30] LABS: Basophils # (auto) 0 10 ^3/uL (0-0.2); Basophils % (auto) 0.5 % (0.0-2.0); Eosinophils # (auto) 0.1 10 ^3/uL (0-0.8); Eosinophils % (auto) 2.7 % (0.0-7.0); Hematocrit 34.7 % (36.0-46.0); Hemoglobin 11.5 g/dL (12.2-16.2); Lymphocytes # (auto) 1.6 10 ^3/uL (0.4-5.4); Lymphocytes % (auto) 32.6 % (10.0-50.0); Mean Corpuscular Hgb Conc. 33.3 g/dL (32.0-36.0); Mean Corpuscular Volume 87.4 fL (80.0-100.0); Monocytes # (auto) 0.3 10 ^3/uL (0-1.3); Monocytes % (auto) 6.4 % (0.0-12.0); Neutrophils # (auto) 2.8 10 ^3/uL (1.6-8.6); Neutrophils % (auto) 57.8 % (37.0-80.0); Nucleated Red Blood Cells % 0.1 %; Red Blood Cells 3.97 10^6/uL (4.0-5.20); Red Cell Distribution Width 15.7 % (11.8-14.3); White Blood Cell 4.8 10^3/uL (4.4-10.8)
[2022-05-13 21:45] LABS: INR 0.98 (0.9-1.15); Partial Thromboplastin Time 26.7 sec (24.6-33.4)
[2022-05-13 21:49] LABS: Albumin 2.8 g/dL (3.4-5.0); Calcium 8.9 mg/dL (8.5-10.1); Potassium 4.1 mmol/L (3.5-5.1)
[2022-05-13 21:53] LABS: BUN/Creatinine Ratio 20.8; Bilirubin, Total 0.4 mg/dL (0.2-1.0)
[2022-05-13] MEDS ORDERED: ASPirin 81 mg TAB PO ONE (22:45)
[2022-05-13] MEDS ORDERED: NITROGLYCERIN 0.4 MG SL TAB SL PRN (23:15)
[2022-05-13] MEDS ORDERED: TEMAZEPAM 15 MG CAP PO PRN (23:15)
[2022-05-13] MEDS ORDERED: ONDANSETRON HCL 4 MG/2 ML VIAL IV PRN (23:15)
[2022-05-13] MEDS ORDERED: DEXTROSE (50%) 50ML SYRG IV PRN (23:15)
[2022-05-13] MEDS ORDERED: MORPHINE SULFATE INJ 2 MG/ml SYRG IV PRN (23:15)
[2022-05-13] MEDS ORDERED: ACETAMINOPHEN 325 MG TAB PO PRN (23:15)
[2022-05-13] MEDS ORDERED: DEXTROSE 10% 1,000 ML IV ONE (23:30)
[2022-05-13] MEDS: ACCU-CHEK COMFORT CURVE STRIP VI SCH (23:55)
[2022-05-13] MEDS: InsuLIN REG 1unit/0.01ml Soln (100units/ml) SC SCH (23:55)
[2022-05-14] MEDS: ACCU-CHEK COMFORT CURVE STRIP VI SCH ×5 (04:24→20:27)
[2022-05-14] MEDS: InsuLIN REG 1unit/0.01ml Soln (100units/ml) SC SCH ×5 (04:24→20:37)
[2022-05-14] MEDS: GABAPENTIN 100 MG CAP PO SCH ×3 (06:04→23:18)
[2022-05-14 07:05] LABS: Basophils # (auto) 0 10 ^3/uL (0-0.2); Basophils % (auto) 0.6 % (0.0-2.0); Eosinophils # (auto) 0.2 10 ^3/uL (0-0.8); Eosinophils % (auto) 3.8 % (0.0-7.0); Hematocrit 31.4 % (36.0-46.0); Hemoglobin 10.7 g/dL (12.2-16.2); Lymphocytes # (auto) 2.1 10 ^3/uL (0.4-5.4); Lymphocytes % (auto) 46.5 % (10.0-50.0); Mean Corpuscular Hemoglobin 29.6 pg (28.0-32.0); Mean Corpuscular Hgb Conc. 34.1 g/dL (32.0-36.0); Mean Corpuscular Volume 87.1 fL (80.0-100.0); Monocytes # (auto) 0.5 10 ^3/uL (0-1.3); Neutrophils # (auto) 1.8 10 ^3/uL (1.6-8.6); Neutrophils % (auto) 39.1 % (37.0-80.0); Nucleated Red Blood Cells % 0.1 %; Red Blood Cells 3.61 10^6/uL (4.0-5.20); Red Cell Distribution Width 15.9 % (11.8-14.3); White Blood Cell 4.6 10^3/uL (4.4-10.8)
[2022-05-14 07:13] LABS: Potassium 3.9 mmol/L (3.5-5.1)
[2022-05-14 07:23] LABS: Albumin 2.4 g/dL (3.4-5.0); BUN/Creatinine Ratio 24.4; Calcium 8.6 mg/dL (8.5-10.1)
[2022-05-14 07:28] LABS: Bilirubin, Total 0.3 mg/dL (0.2-1.0); Total Protein 6.5 g/dL (6.4-8.2)
[2022-05-14] MEDS: FLUoxetine HCL 20 MG CAP PO SCH (07:56)
[2022-05-14] MEDS: PANTOPRAZOLE 40 MG TAB PO SCH (07:56)
[2022-05-14] MEDS: ASPirin 81 mg TAB PO SCH (07:56)
[2022-05-14] MEDS: ENOXAPARIN SOD 40 MG/0.4 ML SYRINGE SC SCH (07:57)
[2022-05-14] MEDS: PRAVASTATIN SODIUM 20 MG TAB PO SCH (23:18)
[2022-05-15] MEDS: ACCU-CHEK COMFORT CURVE STRIP VI SCH ×6 (00:18→21:44)
[2022-05-15] MEDS: InsuLIN REG 1unit/0.01ml Soln (100units/ml) SC SCH ×6 (00:19→21:39)
[2022-05-15] MEDS: GABAPENTIN 100 MG CAP PO SCH ×3 (06:10→21:44)
[2022-05-15] MEDS: PANTOPRAZOLE 40 MG TAB PO SCH (10:25)
[2022-05-15] MEDS: ASPirin 81 mg TAB PO SCH (10:25)
[2022-05-15] MEDS: ENOXAPARIN SOD 40 MG/0.4 ML SYRINGE SC SCH (10:25)
[2022-05-15] MEDS: FLUoxetine HCL 20 MG CAP PO SCH (10:25)
[2022-05-15 13:12] VITALS: BP 134/69
[2022-05-15] MEDS ORDERED: SEMA4INJ SC (15:26)
[2022-05-15] MEDS ORDERED: DIVA500T13 PO (15:26)
[2022-05-15] MEDS ORDERED: LISI20TA28 PO (15:26)
[2022-05-15 17:00] VITALS: BP 160/69
[2022-05-15] MEDS: PRAVASTATIN SODIUM 20 MG TAB PO SCH (21:44)
[2022-05-15 22:00] VITALS: BP 173/79
[2022-05-16 05:00] VITALS: BP 123/62
[2022-05-16] MEDS: ACCU-CHEK COMFORT CURVE STRIP VI SCH ×4 (06:16→22:25)
[2022-05-16] MEDS: GABAPENTIN 100 MG CAP PO SCH ×3 (06:16→22:25)
[2022-05-16] MEDS: InsuLIN REG 1unit/0.01ml Soln (100units/ml) SC SCH ×4 (06:19→22:27)
[2022-05-16 09:00] VITALS: BP 111/56
[2022-05-16] MEDS: ASPirin 81 mg TAB PO SCH (10:12)
[2022-05-16] MEDS: FLUoxetine HCL 20 MG CAP PO SCH (10:13)
[2022-05-16] MEDS: ENOXAPARIN SOD 40 MG/0.4 ML SYRINGE SC SCH (10:13)
[2022-05-16] MEDS: PANTOPRAZOLE 40 MG TAB PO SCH (10:13)
[2022-05-16 13:00] VITALS: BP 122/57
[2022-05-16 17:00] VITALS: BP 144/69
[2022-05-16 22:00] VITALS: BP_SYST 112; BP_SYST 117; BP_SYST 152; BP_DIAS 61; BP_DIAS 62; BP_DIAS 81
[2022-05-16] MEDS: PRAVASTATIN SODIUM 20 MG TAB PO SCH (22:25)
[2022-05-17 05:08] VITALS: BP 148/61
[2022-05-17 05:10] VITALS: BP 126/55
[2022-05-17 05:12] VITALS: BP 111/48
[2022-05-17] MEDS: GABAPENTIN 100 MG CAP PO SCH ×2 (06:09→11:48)
[2022-05-17] MEDS: ACCU-CHEK COMFORT CURVE STRIP VI SCH ×3 (06:30→17:00)
[2022-05-17] MEDS: InsuLIN REG 1unit/0.01ml Soln (100units/ml) SC SCH ×3 (06:32→17:00)
[2022-05-17] MEDS: FLUoxetine HCL 20 MG CAP PO SCH (08:36)
[2022-05-17] MEDS: ASPirin 81 mg TAB PO SCH (08:36)
[2022-05-17] MEDS: ENOXAPARIN SOD 40 MG/0.4 ML SYRINGE SC SCH (08:37)
[2022-05-17 09:00] VITALS: BP 172/79
[2022-05-17] MEDS ORDERED: LORazepam 2MG/ML-1ML VIAL IV PRN (12:00)
[2022-05-17 13:00] VITALS: BP 157/70
[2022-05-17 15:17] VITALS: BP 142/72
== END 2022-05-17 18:00 | disposition home health service (06) | DRG 641 ==
LOC: EDBD 18:01 → ER 18:08 → TELE 23:13 → TELE-EAST 05-15 13:08
PROVIDERS: ADMIT Nurse Practitioner; ATTEND Internal Medicine Geriatric Medicine
DX: E86.0 Dehydration (principal); E44.0 Moderate protein-calorie malnutrition; F02.84 Dementia in other diseases classified elsewhere, unspecified severity, with anxiety; I69.354 Hemiplegia and hemiparesis following cerebral infarction affecting left non-dominant side; I24.8 Other forms of acute ischemic heart disease; I95.9 Hypotension, unspecified; Z20.822 Contact with and (suspected) exposure to COVID-19; E11.22 Type 2 diabetes mellitus with diabetic chronic kidney disease; E11.65 Type 2 diabetes mellitus with hyperglycemia; E78.5 Hyperlipidemia, unspecified; G30.9 Alzheimer's disease, unspecified; H54.62 Unqualified visual loss, left eye, normal vision right eye; I12.9 Hypertensive chronic kidney disease with stage 1 through stage 4 chronic kidney disease, or unspecified chronic kidney disease; I25.10 Atherosclerotic heart disease of native coronary artery without angina pectoris; J10.1 Influenza due to other identified influenza virus with other respiratory manifestations; N18.9 Chronic kidney disease, unspecified; G40.909 Epilepsy, unspecified, not intractable, without status epilepticus; I25.2 Old myocardial infarction; Z79.82 Long term (current) use of aspirin; Z79.899 Other long term (current) drug therapy; Z80.8 Family history of malignant neoplasm of other organs or systems; Z82.0 Family history of epilepsy and other diseases of the nervous system; Z68.30 Body mass index [BMI] 30.0-30.9, adult; Z79.4 Long term (current) use of insulin
CPT/HCPCS: 36415; 70450; 71045; 80053; 82010; 82962; 84484; 85025; 85610; 85730; 87040; 87081; 87426; 87804; 93005; 95819; 96360; G0378; J1815

== ENCOUNTER 2022-07-12 18:03 | Inpatient (IN) | payer OTHER ==
[~2022-07-12] VITALS: Ht 167.6 cm; Wt 84.7 kg
[~2022-07-12 18:03] MED LIST changes: +DIVA500T13 PO; +LISI20TA28 PO; +SEMA4INJ SC
[2022-07-12 18:49] LABS: Basophils # (auto) 0.1 10 ^3/uL (0-0.2); Basophils % (auto) 0.4 % (0.0-2.0); Eosinophils # (auto) 0 10 ^3/uL (0-0.8); Eosinophils % (auto) 0.1 % (0.0-7.0); Hematocrit 31.2 % (36.0-46.0); Hemoglobin 10.4 g/dL (12.2-16.2); Lymphocytes # (auto) 2.2 10 ^3/uL (0.4-5.4); Lymphocytes % (auto) 16.1 % (10.0-50.0); Mean Corpuscular Hemoglobin 30.3 pg (28.0-32.0); Mean Corpuscular Hgb Conc. 33.4 g/dL (32.0-36.0); Mean Corpuscular Volume 90.7 fL (80.0-100.0); Monocytes # (auto) 1.5 10 ^3/uL (0-1.3); Monocytes % (auto) 11.1 % (0.0-12.0); Neutrophils % (auto) 72.3 % (37.0-80.0); Red Blood Cells 3.43 10^6/uL (4.0-5.20); Red Cell Distribution Width 16.6 % (11.8-14.3); White Blood Cell 13.8 10^3/uL (4.4-10.8)
[2022-07-12 19:04] LABS: INR 1.05 (0.9-1.15); Partial Thromboplastin Time 29.9 sec (24.6-33.4)
[2022-07-12 19:07] LABS: Albumin 2.6 g/dL (3.4-5.0); BUN/Creatinine Ratio 27.6; Calcium 8.3 mg/dL (8.5-10.1); Potassium 4.5 mmol/L (3.5-5.1)
[2022-07-12 19:09] LABS: Bilirubin, Total 0.7 mg/dL (0.2-1.0)
[2022-07-12] MEDS ORDERED: AZITHROMYCIN 500MG/ 250ML 250 ML IV ONE (21:45)
[2022-07-12] MEDS ORDERED: cefTRIAXone 1GM/50ML D5W 50 ML IV ONE (21:45)
[2022-07-12] MEDS ORDERED: LACTATED RINGER'S 2,000 ML IV ONE (21:45)
[2022-07-13] MEDS ORDERED: ACETAMINOPHEN 325 MG TAB PO PRN (05:00)
[2022-07-13] MEDS ORDERED: MORPHINE SULFATE 4 MG/ML SYR/VIAL IV PRN (05:00)
[2022-07-13] MEDS ORDERED: LORazepam 0.5 MG TAB PO PRN (05:00)
[2022-07-13] MEDS ORDERED: MORPHINE SULFATE INJ 2 MG/ml SYRG IV PRN (05:00)
[2022-07-13] MEDS ORDERED: DEXTROSE (50%) 50ML SYRG IV PRN (05:00)
[2022-07-13] MEDS: SODIUM CHLORIDE 0.9% 1,000 ML IV SCH ×2 (05:00→18:20)
[2022-07-13] MEDS ORDERED: MAALOX PLUS or MAALOX 30 ML PO ONE (05:00)
[2022-07-13] MEDS ORDERED: ONDANSETRON HCL 4 MG/2 ML VIAL IV PRN (05:00)
[2022-07-13] MEDS ORDERED: ZOLPIDEM TARTRATE 5 MG TAB PO PRN (05:00)
[2022-07-13] MEDS ORDERED: NITROGLYCERIN 0.4 MG SL TAB SL PRN ×2 (05:00)
[2022-07-13] MEDS: ACCU-CHEK COMFORT CURVE STRIP VI SCH ×4 (08:00→22:00)
[2022-07-13] MEDS: InsuLIN REG 1unit/0.01ml Soln (100units/ml) SC SCH ×4 (08:00→22:47)
[2022-07-13] MEDS ORDERED: ASPirin 81 mg TAB PO SCH (10:00)
[2022-07-13] MEDS: DOCUSATE SOD 100 MG CAP PO SCH (10:00)
[2022-07-13] MEDS ORDERED: LISINOPRIL 10 MG TAB PO SCH (10:00)
[2022-07-13] MEDS ORDERED: METOPROLOL TARTRATE 25 MG TAB PO SCH (10:00)
[2022-07-13] MEDS ORDERED: CLOPIDOGREL BISULFATE 75 MG TAB PO SCH (10:00)
[2022-07-13] MEDS ORDERED: ENOXAPARIN SOD 100 MG/1 ML SYRINGE SC SCH (10:00)
[2022-07-13] MEDS ORDERED: PANTOPRAZOLE 40 MG/10 ML VIAL INJ IV ONE (11:15)
[2022-07-13 11:45] LABS: Basophils # (auto) 0 10 ^3/uL (0-0.2); Basophils % (auto) 0.3 % (0.0-2.0); Eosinophils # (auto) 0.1 10 ^3/uL (0-0.8); Eosinophils % (auto) 1.1 % (0.0-7.0); Hematocrit 30.2 % (36.0-46.0); Hemoglobin 10.2 g/dL (12.2-16.2); Lymphocytes # (auto) 2.1 10 ^3/uL (0.4-5.4); Lymphocytes % (auto) 19.9 % (10.0-50.0); Mean Corpuscular Hemoglobin 30.9 pg (28.0-32.0); Mean Corpuscular Hgb Conc. 33.7 g/dL (32.0-36.0); Mean Corpuscular Volume 91.5 fL (80.0-100.0); Monocytes # (auto) 0.8 10 ^3/uL (0-1.3); Monocytes % (auto) 7.7 % (0.0-12.0); Neutrophils # (auto) 7.3 10 ^3/uL (1.6-8.6); Nucleated Red Blood Cells % 0.2 %; Red Cell Distribution Width 16.4 % (11.8-14.3); White Blood Cell 10.3 10^3/uL (4.4-10.8)
[2022-07-13 12:12] LABS: Calcium 8.7 mg/dL (8.5-10.1)
[2022-07-13 12:16] LABS: BUN/Creatinine Ratio 35.2
[2022-07-13 12:17] LABS: Alcohol, Urine < 3.0 mg/dL (0-10); Amphetamine Screen, Urine NEGATIVE (NEGATIVE); Barbiturate Scree,Urine NEGATIVE (NEGATIVE); Benzodiazephine Screen, Urine NEGATIVE (NEGATIVE); Cannabinoid Screen, Urine NEGATIVE (NEGATIVE); Cocaine Screen, Urine NEGATIVE (NEGATIVE); Opiate Scree,Urine NEGATIVE (NEGATIVE); Phencyclidine Screen, Urine NEGATIVE (NEGATIVE)
[2022-07-13 12:40] LABS: Urine Bacteria FEW /hpf (None Seen); Urine Blood 2+ /uL (Negative); Urine Hyaline Cast FEW /lpf (0 - 2); Urine Mucus FEW (None Seen); Urine Specific Gravity 1.023 (1.001-1.035); Urine WBC 69 /hpf (0 - 5)
[2022-07-13] MEDS ORDERED: ATORVASTATIN 20 MG TAB PO SCH (22:00)
[2022-07-13] MEDS: AZITHROMYCIN 500MG/ 250ML 250 ML IV SCH (22:48)
[2022-07-13] MEDS: cefTRIAXone 1GM/50ML D5W 50 ML IV SCH (22:48)
[2022-07-14] MEDS: ACCU-CHEK COMFORT CURVE STRIP VI SCH ×6 (00:45→20:21)
[2022-07-14] MEDS: InsuLIN REG 1unit/0.01ml Soln (100units/ml) SC SCH ×6 (00:53→20:00)
[2022-07-14 06:44] LABS: Basophils # (auto) 0 10 ^3/uL (0-0.2); Basophils % (auto) 0.3 % (0.0-2.0); Eosinophils # (auto) 0.2 10 ^3/uL (0-0.8); Eosinophils % (auto) 2.3 % (0.0-7.0); Hematocrit 27.7 % (36.0-46.0); Hemoglobin 9.8 g/dL (12.2-16.2); Lymphocytes # (auto) 1.9 10 ^3/uL (0.4-5.4); Lymphocytes % (auto) 26.1 % (10.0-50.0); Mean Corpuscular Hemoglobin 31.7 pg (28.0-32.0); Mean Corpuscular Hgb Conc. 35.2 g/dL (32.0-36.0); Mean Corpuscular Volume 90.2 fL (80.0-100.0); Monocytes # (auto) 0.5 10 ^3/uL (0-1.3); Monocytes % (auto) 6.9 % (0.0-12.0); Neutrophils # (auto) 4.8 10 ^3/uL (1.6-8.6); Neutrophils % (auto) 64.4 % (37.0-80.0); Red Blood Cells 3.08 10^6/uL (4.0-5.20); Red Cell Distribution Width 15.7 % (11.8-14.3); White Blood Cell 7.5 10^3/uL (4.4-10.8)
[2022-07-14 06:58] LABS: Potassium 3.7 mmol/L (3.5-5.1)
[2022-07-14 07:01] LABS: BUN/Creatinine Ratio 34.7; Calcium 8.3 mg/dL (8.5-10.1)
[2022-07-14] MEDS: SODIUM CHLORIDE 0.9% 1,000 ML IV SCH ×2 (07:40→21:00)
[2022-07-14] MEDS: PANTOPRAZOLE 40 MG/10 ML VIAL INJ IV SCH (09:45)
[2022-07-14] MEDS: DOCUSATE SOD 100 MG CAP PO SCH (10:50)
[2022-07-14 17:40] VITALS: BP 145/59
[2022-07-14] MEDS: cefTRIAXone 1GM/50ML D5W 50 ML IV SCH (21:00)
[2022-07-14 22:00] VITALS: BP 151/63
[2022-07-14] MEDS: AZITHROMYCIN 500MG/ 250ML 250 ML IV SCH (22:54)
[2022-07-15] MEDS: InsuLIN REG 1unit/0.01ml Soln (100units/ml) SC SCH ×6 (00:23→20:31)
[2022-07-15] MEDS: ACCU-CHEK COMFORT CURVE STRIP VI SCH ×6 (00:23→20:00)
[2022-07-15 05:00] VITALS: BP 148/60
[2022-07-15] MEDS: SODIUM CHLORIDE 0.9% 1,000 ML IV SCH ×2 (05:29→10:45)
[2022-07-15 06:30] LABS: Basophils # (auto) 0 10 ^3/uL (0-0.2); Basophils % (auto) 0.3 % (0.0-2.0); Eosinophils # (auto) 0.1 10 ^3/uL (0-0.8); Eosinophils % (auto) 2.3 % (0.0-7.0); Hematocrit 29.3 % (36.0-46.0); Hemoglobin 10.1 g/dL (12.2-16.2); Lymphocytes # (auto) 1.9 10 ^3/uL (0.4-5.4); Lymphocytes % (auto) 34.7 % (10.0-50.0); Mean Corpuscular Hemoglobin 30.8 pg (28.0-32.0); Mean Corpuscular Hgb Conc. 34.7 g/dL (32.0-36.0); Monocytes # (auto) 0.5 10 ^3/uL (0-1.3); Monocytes % (auto) 8.9 % (0.0-12.0); Neutrophils % (auto) 53.8 % (37.0-80.0); Red Blood Cells 3.29 10^6/uL (4.0-5.20); Red Cell Distribution Width 15.4 % (11.8-14.3); White Blood Cell 5.5 10^3/uL (4.4-10.8)
[2022-07-15 06:47] LABS: BUN/Creatinine Ratio 20.3; Calcium 8.4 mg/dL (8.5-10.1); Potassium 3.5 mmol/L (3.5-5.1)
[2022-07-15 10:00] VITALS: BP 151/66
[2022-07-15] MEDS: PANTOPRAZOLE 40 MG/10 ML VIAL INJ IV SCH (10:15)
[2022-07-15] MEDS: DOCUSATE SOD 100 MG CAP PO SCH (10:15)
[2022-07-15] MEDS ORDERED: hydrALAZINE HCL 20 MG/ML VL IV PRN (10:45)
[2022-07-15 16:46] VITALS: BP 136/71
[2022-07-15 18:34] LABS: Urine Bacteria NONE SEEN /hpf (None Seen); Urine Blood Negative /uL (Negative); Urine Hyaline Cast FEW /lpf (0 - 2); Urine Mucus FEW (None Seen); Urine Specific Gravity 1.013 (1.001-1.035); Urine WBC 11 /hpf (0 - 5)
[2022-07-15] MEDS ORDERED: POLYETHYLENE GLYCOL 17 GM PWDR PO ONE (21:30)
[2022-07-15] MEDS: cefTRIAXone 1GM/50ML D5W 50 ML IV SCH (21:59)
[2022-07-15 22:00] VITALS: BP 161/61
[2022-07-15] MEDS: AZITHROMYCIN 500MG/ 250ML 250 ML IV SCH (22:00)
[2022-07-16] MEDS: ACCU-CHEK COMFORT CURVE STRIP VI SCH ×6 (04:00→20:33)
[2022-07-16] MEDS: InsuLIN REG 1unit/0.01ml Soln (100units/ml) SC SCH ×6 (04:00→20:33)
[2022-07-16 05:00] VITALS: BP 156/60
[2022-07-16] MEDS: SODIUM CHLORIDE 0.9% 1,000 ML IV SCH (05:28)
[2022-07-16 07:19] LABS: Basophils # (auto) 0 10 ^3/uL (0-0.2); Basophils % (auto) 0.3 % (0.0-2.0); Eosinophils # (auto) 0.1 10 ^3/uL (0-0.8); Eosinophils % (auto) 2.1 % (0.0-7.0); Hematocrit 29.2 % (36.0-46.0); Lymphocytes # (auto) 1.7 10 ^3/uL (0.4-5.4); Lymphocytes % (auto) 38.1 % (10.0-50.0); Mean Corpuscular Hgb Conc. 34.3 g/dL (32.0-36.0); Mean Corpuscular Volume 90.5 fL (80.0-100.0); Monocytes # (auto) 0.4 10 ^3/uL (0-1.3); Neutrophils # (auto) 2.2 10 ^3/uL (1.6-8.6); Neutrophils % (auto) 50.5 % (37.0-80.0); Red Blood Cells 3.23 10^6/uL (4.0-5.20); Red Cell Distribution Width 15.1 % (11.8-14.3); White Blood Cell 4.5 10^3/uL (4.4-10.8)
[2022-07-16 07:34] LABS: Potassium 3.2 mmol/L (3.5-5.1)
[2022-07-16 07:41] LABS: BUN/Creatinine Ratio 14.8; Calcium 8.5 mg/dL (8.5-10.1)
[2022-07-16 09:00] VITALS: BP 145/75
[2022-07-16] MEDS ORDERED: POTASSIUM CHL 20 Meq TABLET PO ONE (09:30)
[2022-07-16] MEDS: PANTOPRAZOLE 40 MG/10 ML VIAL INJ IV SCH (09:43)
[2022-07-16] MEDS: DOCUSATE SOD 100 MG CAP PO SCH (09:44)
[2022-07-16] MEDS ORDERED: GOLYTELY 4L KIT PO ONE (10:00)
[2022-07-16 13:00] VITALS: BP 152/82
[2022-07-16 17:09] VITALS: BP 136/76
[2022-07-16] MEDS: cefTRIAXone 1GM/50ML D5W 50 ML IV SCH (20:34)
[2022-07-16] MEDS ORDERED: POLYETHYLENE GLYCOL 17 GM PWDR PO ONE (20:45)
[2022-07-16] MEDS: AZITHROMYCIN 500MG/ 250ML 250 ML IV SCH (21:30)
[2022-07-16 22:00] VITALS: BP 172/79
[2022-07-17] MEDS: ACCU-CHEK COMFORT CURVE STRIP VI SCH ×6 (00:07→22:17)
[2022-07-17] MEDS: InsuLIN REG 1unit/0.01ml Soln (100units/ml) SC SCH ×6 (00:08→22:00)
[2022-07-17] MEDS: SODIUM CHLORIDE 0.9% 1,000 ML IV SCH (04:27)
[2022-07-17 05:00] VITALS: BP 130/50
[2022-07-17] MEDS ORDERED: GOLYTELY 4L KIT PO ONE (06:00)
[2022-07-17 07:50] VITALS: BP 132/50
[2022-07-17 07:59] LABS: Basophils # (auto) 0 10 ^3/uL (0-0.2); Basophils % (auto) 0.3 % (0.0-2.0); Eosinophils # (auto) 0 10 ^3/uL (0-0.8); Eosinophils % (auto) 0.4 % (0.0-7.0); Hematocrit 31.3 % (36.0-46.0); Lymphocytes # (auto) 1.1 10 ^3/uL (0.4-5.4); Lymphocytes % (auto) 19.4 % (10.0-50.0); Mean Corpuscular Hemoglobin 31.4 pg (28.0-32.0); Mean Corpuscular Hgb Conc. 35.3 g/dL (32.0-36.0); Monocytes # (auto) 0.6 10 ^3/uL (0-1.3); Monocytes % (auto) 11.2 % (0.0-12.0); Neutrophils # (auto) 3.9 10 ^3/uL (1.6-8.6); Neutrophils % (auto) 68.7 % (37.0-80.0); Nucleated Red Blood Cells % 0.1 %; Red Blood Cells 3.51 10^6/uL (4.0-5.20); White Blood Cell 5.6 10^3/uL (4.4-10.8)
[2022-07-17 08:06] LABS: Calcium 8.4 mg/dL (8.5-10.1); Potassium 3.7 mmol/L (3.5-5.1)
[2022-07-17 08:18] LABS: BUN/Creatinine Ratio 18.9
[2022-07-17 09:00] VITALS: BP 145/66
[2022-07-17] MEDS: PANTOPRAZOLE 40 MG/10 ML VIAL INJ IV SCH (09:24)
[2022-07-17] MEDS: DOCUSATE SOD 100 MG CAP PO SCH (09:24)
[2022-07-17] MEDS ORDERED: NALOXONE HCL 0.4 MG/ML VIAL ONE (11:16)
[2022-07-17] MEDS ORDERED: FLUMAZENIL 0.1 MG/ML INJ 10ML MDV IV ONE (11:17)
[2022-07-17 13:00] VITALS: BP 126/70
[2022-07-17] MEDS: MIDAZOLAM HCL 2MG/2ML 2ml VIAL (1mg/ml) ONE ×2 (15:44→15:59)
[2022-07-17] MEDS: diphenhdrAMINE HCL 50 MG/1 ML VL ONE ×2 (15:44→15:45)
[2022-07-17] MEDS: fentaNYL CITRATE 100 MCG/2 ML VL ONE ×2 (15:44→15:59)
[2022-07-17 20:00] VITALS: BP 104/55
[2022-07-17] MEDS: cefTRIAXone 1GM/50ML D5W 50 ML IV SCH (20:39)
[2022-07-17 22:00] VITALS: BP 104/45
[2022-07-17] MEDS: AZITHROMYCIN 500MG/ 250ML 250 ML IV SCH (22:18)
[2022-07-18 05:00] VITALS: BP 145/59
[2022-07-18] MEDS: SODIUM CHLORIDE 0.9% 1,000 ML IV SCH ×2 (06:12→18:24)
[2022-07-18] MEDS: ACCU-CHEK COMFORT CURVE STRIP VI SCH ×4 (06:23→22:00)
[2022-07-18] MEDS: InsuLIN REG 1unit/0.01ml Soln (100units/ml) SC SCH ×4 (06:29→23:42)
[2022-07-18 06:34] LABS: Potassium 3.9 mmol/L (3.5-5.1)
[2022-07-18 06:39] LABS: Basophils # (auto) 0 10 ^3/uL (0-0.2); Basophils % (auto) 0.3 % (0.0-2.0); Eosinophils # (auto) 0.1 10 ^3/uL (0-0.8); Eosinophils % (auto) 1.9 % (0.0-7.0); Hematocrit 29.7 % (36.0-46.0); Hemoglobin 10.1 g/dL (12.2-16.2); Lymphocytes # (auto) 2.1 10 ^3/uL (0.4-5.4); Lymphocytes % (auto) 33.6 % (10.0-50.0); Mean Corpuscular Hgb Conc. 33.9 g/dL (32.0-36.0); Mean Corpuscular Volume 91.4 fL (80.0-100.0); Monocytes # (auto) 0.5 10 ^3/uL (0-1.3); Monocytes % (auto) 7.3 % (0.0-12.0); Neutrophils # (auto) 3.5 10 ^3/uL (1.6-8.6); Neutrophils % (auto) 56.9 % (37.0-80.0); Nucleated Red Blood Cells % 0.1 %; Red Blood Cells 3.25 10^6/uL (4.0-5.20); Red Cell Distribution Width 15.3 % (11.8-14.3); White Blood Cell 6.2 10^3/uL (4.4-10.8)
[2022-07-18 06:40] LABS: BUN/Creatinine Ratio 17.1; Calcium 8.3 mg/dL (8.5-10.1)
[2022-07-18] MEDS ORDERED: EZ PAQUE SUSP 12OZ BTL ONE (08:57)
[2022-07-18 09:00] VITALS: BP 140/55
[2022-07-18] MEDS: DOCUSATE SOD 100 MG CAP PO SCH (10:00)
[2022-07-18] MEDS: PANTOPRAZOLE 40 MG/10 ML VIAL INJ IV SCH (10:38)
[2022-07-18 13:00] VITALS: BP 144/65
[2022-07-18 17:00] VITALS: BP 141/73
[2022-07-18 20:00] VITALS: BP 104/55
[2022-07-18] MEDS: cefTRIAXone 1GM/50ML D5W 50 ML IV SCH (20:36)
[2022-07-18 22:00] VITALS: BP 140/64
[2022-07-18] MEDS: AZITHROMYCIN 500MG/ 250ML 250 ML IV SCH (23:44)
[2022-07-19 05:00] VITALS: BP 143/52
[2022-07-19] MEDS: ACCU-CHEK COMFORT CURVE STRIP VI SCH ×2 (07:03→12:00)
[2022-07-19] MEDS: InsuLIN REG 1unit/0.01ml Soln (100units/ml) SC SCH ×2 (07:04→12:01)
[2022-07-19 09:00] VITALS: BP 164/67
[2022-07-19] MEDS: DOCUSATE SOD 100 MG CAP PO SCH (10:00)
[2022-07-19] MEDS: PANTOPRAZOLE 40 MG/10 ML VIAL INJ IV SCH (10:00)
[2022-07-19] MEDS ORDERED: PANT40TA2 PO (11:32)
[2022-07-19 13:00] VITALS: BP 162/75
== END 2022-07-19 14:50 | disposition home health service (06) | DRG 760 ==
LOC: EDBD 18:03 → ER 18:07 → TELE 07-13 04:51 → TELE-WESTW 07-14 17:15
PROVIDERS: ADMIT Hospitalist; ATTEND Internal Medicine Geriatric Medicine
PROC: 0DBN8ZZ Excision of Sigmoid Colon, Via Natural or Artificial Opening Endoscopic (ICD-10-PCS; 2022-07-17)
PROC: 0DBM8ZZ Excision of Descending Colon, Via Natural or Artificial Opening Endoscopic (ICD-10-PCS; principal; 2022-07-17 15:34)
DX: N93.9 Abnormal uterine and vaginal bleeding, unspecified (principal); J18.9 Pneumonia, unspecified organism; N17.9 Acute kidney failure, unspecified; N39.0 Urinary tract infection, site not specified; K63.5 Polyp of colon; Z20.822 Contact with and (suspected) exposure to COVID-19; D64.9 Anemia, unspecified; E11.621 Type 2 diabetes mellitus with foot ulcer; N18.9 Chronic kidney disease, unspecified; I12.9 Hypertensive chronic kidney disease with stage 1 through stage 4 chronic kidney disease, or unspecified chronic kidney disease; E11.22 Type 2 diabetes mellitus with diabetic chronic kidney disease; E11.65 Type 2 diabetes mellitus with hyperglycemia; E78.5 Hyperlipidemia, unspecified; L97.509 Non-pressure chronic ulcer of other part of unspecified foot with unspecified severity; I95.9 Hypotension, unspecified; K64.8 Other hemorrhoids; E87.6 Hypokalemia; Z86.73 Personal history of transient ischemic attack (TIA), and cerebral infarction without residual deficits; Z80.8 Family history of malignant neoplasm of other organs or systems; Z79.4 Long term (current) use of insulin; Z79.82 Long term (current) use of aspirin; Z74.01 Bed confinement status; Z79.02 Long term (current) use of antithrombotics/antiplatelets; I25.2 Old myocardial infarction; Z82.0 Family history of epilepsy and other diseases of the nervous system
CPT/HCPCS: 36415; 45385; 70450; 71045; 74176; 74280; 76856; 80048; 80053; 80307; 81001; 82010; 82378; 82553; 82962; 83605; 83690; 83735; 84484; 85025; 85610; 85730; 86304; 86850; 86900; 86901; 87426; 87804; 93005; 96365; 96367; 96375; 96376; 97163; C9113; G0378; J0696; J1815; J2250

== ENCOUNTER 2022-07-30 10:39 | Inpatient (IN) | payer OTHER ==
[~2022-07-30] VITALS: Ht 167.6 cm; Wt 85.3 kg
[~2022-07-30 10:39] MED LIST changes: -ASPI81CH43 PO; +PANT40TA2 PO
[2022-07-30] MEDS ORDERED: SODIUM CHLORIDE 0.9% 1,000 ML IV ONE ×3 (11:00→11:15)
[2022-07-30 11:20] LABS: Basophils # (auto) 0 10 ^3/uL (0-0.2); Basophils % (auto) 0.4 % (0.0-2.0); Eosinophils # (auto) 0.1 10 ^3/uL (0-0.8); Eosinophils % (auto) 3.1 % (0.0-7.0); Hematocrit 31.5 % (36.0-46.0); Hemoglobin 10.1 g/dL (12.2-16.2); Lymphocytes # (auto) 1.4 10 ^3/uL (0.4-5.4); Lymphocytes % (auto) 32.5 % (10.0-50.0); Mean Corpuscular Hgb Conc. 32.2 g/dL (32.0-36.0); Mean Corpuscular Volume 93.3 fL (80.0-100.0); Monocytes # (auto) 0.3 10 ^3/uL (0-1.3); Monocytes % (auto) 6.7 % (0.0-12.0); Neutrophils # (auto) 2.5 10 ^3/uL (1.6-8.6); Neutrophils % (auto) 57.3 % (37.0-80.0); Red Blood Cells 3.38 10^6/uL (4.0-5.20); Red Cell Distribution Width 15.2 % (11.8-14.3); White Blood Cell 4.4 10^3/uL (4.4-10.8)
[2022-07-30 11:35] LABS: Albumin 2.8 g/dL (3.4-5.0); BUN/Creatinine Ratio 18.9; Calcium 7.9 mg/dL (8.5-10.1); Potassium 4.4 mmol/L (3.5-5.1)
[2022-07-30 11:40] LABS: Bilirubin, Total 0.5 mg/dL (0.2-1.0)
[2022-07-30] MEDS ORDERED: InsuLIN REG 1unit/0.01ml Soln (100units/ml) IV ONE (13:00)
[2022-07-30] MEDS ORDERED: DEXTROSE (50%) 50ML SYRG IV PRN (19:45)
[2022-07-30] MEDS ORDERED: ACETAMINOPHEN 325 MG TAB PO PRN (20:00)
[2022-07-30] MEDS ORDERED: PANTOPRAZOLE 40 MG/10 ML VIAL INJ IV ONE (20:00)
[2022-07-30] MEDS: SODIUM CHLORIDE 0.9% 1,000 ML IV SCH (20:12)
[2022-07-30] MEDS ORDERED: hydrALAZINE HCL 20 MG/ML VL IV PRN (20:15)
[2022-07-30] MEDS: ACCU-CHEK COMFORT CURVE STRIP VI SCH (22:00)
[2022-07-30] MEDS: ATORVASTATIN 20 MG TAB PO SCH (23:51)
[2022-07-30] MEDS: PRAVASTATIN SODIUM 20 MG TAB PO SCH (23:52)
[2022-07-30] MEDS: GABAPENTIN 100 MG CAP PO SCH (23:52)
[2022-07-30] MEDS: InsuLIN REG 1unit/0.01ml Soln (100units/ml) SC SCH (23:53)
[2022-07-31] MEDS: GABAPENTIN 100 MG CAP PO SCH ×3 (05:37→21:46)
[2022-07-31] MEDS: ACCU-CHEK COMFORT CURVE STRIP VI SCH ×4 (07:13→21:48)
[2022-07-31] MEDS: InsuLIN REG 1unit/0.01ml Soln (100units/ml) SC SCH ×4 (07:18→21:47)
[2022-07-31] MEDS ORDERED: INSULIN LANTUS (GLARGINE) 1 /0.01ml (100units/ml) SC ONE (09:15)
[2022-07-31] MEDS ORDERED: ENOXAPARIN SOD 40 MG/0.4 ML SYRINGE SC SCH (10:00)
[2022-07-31] MEDS ORDERED: ASPirin 81 mg TAB PO SCH (10:00)
[2022-07-31] MEDS: LISINOPRIL 20 MG TAB PO SCH (11:54)
[2022-07-31] MEDS: PANTOPRAZOLE 40 MG/10 ML VIAL INJ IV SCH (11:54)
[2022-07-31] MEDS: FLUoxetine HCL 20 MG CAP PO SCH (11:55)
[2022-07-31] MEDS: SODIUM CHLORIDE 0.9% 1,000 ML IV SCH ×2 (12:00→21:48)
[2022-07-31 16:20] LABS: Urine Bacteria NONE SEEN /hpf (None Seen); Urine Blood Negative /uL (Negative); Urine Hyaline Cast FEW /lpf (0 - 2); Urine Specific Gravity 1.017 (1.001-1.035); Urine WBC <1 /hpf (0 - 5)
[2022-07-31 17:23] VITALS: BP 156/60
[2022-07-31] MEDS: ATORVASTATIN 20 MG TAB PO SCH (21:46)
[2022-07-31] MEDS: PRAVASTATIN SODIUM 20 MG TAB PO SCH (21:46)
[2022-07-31 22:00] VITALS: BP 133/65
[2022-07-31] MEDS ORDERED: INSULIN LANTUS (GLARGINE) 1 /0.01ml (100units/ml) SC SCH (22:00)
[2022-08-01] VITALS (8 sets, daily range): BP systolic 87–162; BP diastolic 46–78
[2022-08-01 05:56] LABS: Basophils # (auto) 0 10 ^3/uL (0-0.2); Basophils % (auto) 0.3 % (0.0-2.0); Eosinophils # (auto) 0.1 10 ^3/uL (0-0.8); Eosinophils % (auto) 3.5 % (0.0-7.0); Hematocrit 30.8 % (36.0-46.0); Hemoglobin 10.3 g/dL (12.2-16.2); Lymphocytes # (auto) 1.8 10 ^3/uL (0.4-5.4); Lymphocytes % (auto) 44.1 % (10.0-50.0); Mean Corpuscular Hemoglobin 30.4 pg (28.0-32.0); Mean Corpuscular Hgb Conc. 33.3 g/dL (32.0-36.0); Mean Corpuscular Volume 91.3 fL (80.0-100.0); Monocytes # (auto) 0.4 10 ^3/uL (0-1.3); Monocytes % (auto) 9.4 % (0.0-12.0); Neutrophils # (auto) 1.8 10 ^3/uL (1.6-8.6); Neutrophils % (auto) 42.7 % (37.0-80.0); Nucleated Red Blood Cells % 0.1 %; Red Blood Cells 3.37 10^6/uL (4.0-5.20); White Blood Cell 4.2 10^3/uL (4.4-10.8)
[2022-08-01 06:07] LABS: Calcium 8.2 mg/dL (8.5-10.1); Magnesium 2.1 mg/dL (1.6-2.6); Potassium 3.5 mmol/L (3.5-5.1)
[2022-08-01] MEDS: GABAPENTIN 100 MG CAP PO SCH ×3 (06:07→22:05)
[2022-08-01 06:10] LABS: BUN/Creatinine Ratio 22.1
[2022-08-01] MEDS: ACCU-CHEK COMFORT CURVE STRIP VI SCH ×4 (06:21→22:05)
[2022-08-01] MEDS: InsuLIN REG 1unit/0.01ml Soln (100units/ml) SC SCH ×4 (06:21→22:06)
[2022-08-01] MEDS: LISINOPRIL 20 MG TAB PO SCH (09:09)
[2022-08-01] MEDS: FLUoxetine HCL 20 MG CAP PO SCH (09:09)
[2022-08-01] MEDS: PANTOPRAZOLE 40 MG/10 ML VIAL INJ IV SCH (09:09)
[2022-08-01] MEDS: SODIUM CHLORIDE 0.9% 1,000 ML IV SCH (11:43)
[2022-08-01] MEDS ORDERED: INSULIN LANTUS (GLARGINE) 1 /0.01ml (100units/ml) SC SCH (22:00)
[2022-08-01] MEDS: PRAVASTATIN SODIUM 20 MG TAB PO SCH (22:05)
[2022-08-01] MEDS: ATORVASTATIN 20 MG TAB PO SCH (22:05)
[2022-08-02 05:00] VITALS: BP 119/59
[2022-08-02] MEDS: SODIUM CHLORIDE 0.9% 1,000 ML IV SCH (05:17)
[2022-08-02] MEDS: ACCU-CHEK COMFORT CURVE STRIP VI SCH (05:55)
[2022-08-02] MEDS: GABAPENTIN 100 MG CAP PO SCH (05:55)
[2022-08-02] MEDS: InsuLIN REG 1unit/0.01ml Soln (100units/ml) SC SCH (06:15)
[2022-08-02 08:00] VITALS: BP 150/62
[2022-08-02 08:30] VITALS: BP 150/62
[2022-08-02] MEDS: FLUoxetine HCL 20 MG CAP PO SCH (09:14)
[2022-08-02] MEDS: PANTOPRAZOLE 40 MG/10 ML VIAL INJ IV SCH (09:14)
[2022-08-02 10:26] VITALS: BP 148/58
== END 2022-08-02 12:00 | disposition home or self-care (01) | DRG 638 ==
LOC: EDBD 10:39 → ER 10:39 → OVERFLOW 19:49 → WEST WING 07-31 16:04
PROVIDERS: ADMIT Nurse Practitioner Family; ATTEND Internal Medicine Geriatric Medicine
DX: E11.65 Type 2 diabetes mellitus with hyperglycemia (principal); E46 Unspecified protein-calorie malnutrition; N39.0 Urinary tract infection, site not specified; L97.419 Non-pressure chronic ulcer of right heel and midfoot with unspecified severity; N17.9 Acute kidney failure, unspecified; I69.354 Hemiplegia and hemiparesis following cerebral infarction affecting left non-dominant side; D64.9 Anemia, unspecified; E11.22 Type 2 diabetes mellitus with diabetic chronic kidney disease; E78.5 Hyperlipidemia, unspecified; E83.51 Hypocalcemia; Z20.822 Contact with and (suspected) exposure to COVID-19; I12.9 Hypertensive chronic kidney disease with stage 1 through stage 4 chronic kidney disease, or unspecified chronic kidney disease; E11.621 Type 2 diabetes mellitus with foot ulcer; H54.62 Unqualified visual loss, left eye, normal vision right eye; I25.10 Atherosclerotic heart disease of native coronary artery without angina pectoris; N18.9 Chronic kidney disease, unspecified; W01.0XXA Fall on same level from slipping, tripping and stumbling without subsequent striking against object, initial encounter; Z79.4 Long term (current) use of insulin; I25.2 Old myocardial infarction; Z68.28 Body mass index [BMI] 28.0-28.9, adult; Y93.89 Activity, other specified; Y92.89 Other specified places as the place of occurrence of the external cause; Y99.8 Other external cause status; Z74.01 Bed confinement status; Z79.82 Long term (current) use of aspirin; Z79.899 Other long term (current) drug therapy; Z80.8 Family history of malignant neoplasm of other organs or systems; Z82.0 Family history of epilepsy and other diseases of the nervous system
CPT/HCPCS: 36415; 70450; 80048; 80053; 81001; 82962; 83036; 83735; 84484; 85025; 87081; 87426; 96361; 96374; 97110; 97116; C9113; G0378; J1815

== ENCOUNTER 2023-03-03 10:50 | Inpatient (IN) | payer OTHER ==
[~2023-03-03] VITALS: Ht 167.6 cm; Wt 97.9 kg
[~2023-03-03 10:50] MED LIST changes: +GABA-1308 OR; -GABA100C9 OR; -LISI20TA28 PO
[2023-03-03] MEDS ORDERED: SODIUM CHLORIDE 0.9% 1,000 ML IV ONE (11:15)
[2023-03-03 11:25] LABS: Basophils # (auto) 0 10 ^3/uL (0-0.2); Basophils % (auto) 0.2 % (0.0-2.0); Eosinophils # (auto) 0.1 10 ^3/uL (0-0.8); Eosinophils % (auto) 3.1 % (0.0-7.0); Hematocrit 35.3 % (36.0-46.0); Hemoglobin 11.7 g/dL (12.2-16.2); Lymphocytes # (auto) 1.4 10 ^3/uL (0.4-5.4); Lymphocytes % (auto) 30.2 % (10.0-50.0); Mean Corpuscular Hemoglobin 29.6 pg (28.0-32.0); Mean Corpuscular Volume 89.8 fL (80.0-100.0); Monocytes # (auto) 0.5 10 ^3/uL (0-1.3); Monocytes % (auto) 10.2 % (0.0-12.0); Neutrophils # (auto) 2.7 10 ^3/uL (1.6-8.6); Neutrophils % (auto) 56.3 % (37.0-80.0); Red Blood Cells 3.94 10^6/uL (4.0-5.20); Red Cell Distribution Width 14.3 % (11.8-14.3); White Blood Cell 4.8 10^3/uL (4.4-10.8)
[2023-03-03 11:43] LABS: Alanine Aminotransferase 58 U/L (7-40); Albumin 3.6 g/dL (3.2-4.8); Alkaline Phosphatase 118 U/L (46-116); Anion Gap 4.7 (5-15); Aspartate Aminotransferase 53 U/L (13-40); BUN/Creatinine Ratio 30.5 (10.0-20.0); Bilirubin, Total 0.5 mg/dL (0.2-1.0); Blood Urea Nitrogen 39 mg/dL (9-23); Calcium 8.4 mg/dL (8.5-10.1); Carbon Dioxide 29.3 mmol/L (20-30); Chloride 104 mmol/L (98-107); Glucose 117 mg/dL (74-106); Potassium 4.2 mmol/L (3.5-5.1); Sodium 138 mmol/L (136-145); Total Protein 6.4 g/dL (5.7-8.2)
[2023-03-03] MEDS ORDERED: ENOXAPARIN SOD 80 MG/0.8ML SYRINGE SC ONE (13:00)
[2023-03-03] MEDS ORDERED: MORPHINE SULFATE INJ 2 MG/ml SYRG IV PRN (13:45)
[2023-03-03] MEDS ORDERED: NITROGLYCERIN 0.4 MG SL TAB SL PRN (13:45)
[2023-03-03] MEDS ORDERED: DEXTROSE (50%) 50ML SYRG IV PRN (13:45)
[2023-03-03] MEDS ORDERED: TRAM50TA2 PO (14:07)
[2023-03-03] MEDS ORDERED: MIRA25TA PO (14:07)
[2023-03-03] MEDS ORDERED: BUPR150T18 PO (14:07)
[2023-03-03] MEDS ORDERED: ESCI5TAB20 PO (14:07)
[2023-03-03] MEDS ORDERED: traMADol HCL 50 MG TAB PO PRN (14:30)
[2023-03-03] MEDS: SODIUM CHLORIDE 0.9% 1,000 ML IV SCH (14:46)
[2023-03-03 15:41] VITALS: PULSE 73; RESP 13; O2SAT 96
[2023-03-03] MEDS: InsuLIN REG 1unit/0.01ml Soln (100units/ml) SC SCH ×2 (16:21→23:10)
[2023-03-03] MEDS: ACCU-CHEK COMFORT CURVE STRIP VI SCH ×2 (16:22→23:11)
[2023-03-03 19:40] VITALS: PULSE 72; RESP 13; O2SAT 95
[2023-03-03 19:48] LABS: Urine Bacteria NONE SEEN /hpf (None Seen); Urine Blood TRACE /uL (Negative); Urine Clarity HAZY (Clear); Urine Color Colorless (Yellow); Urine Protein, UAD TRACE (Negative); Urine Specific Gravity 1.009 (1.001-1.035); Urine Urobilinogen Normal (Negative); Urine WBC 26 /hpf (0 - 5); Urine pH 5.5 (5.0-8.0)
[2023-03-03] MEDS ORDERED: cefTRIAXone 1GM/50ML D5W 50 ML IV ONE (21:15)
[2023-03-03] MEDS: GABAPENTIN 300 MG CAP PO SCH (23:09)
[2023-03-03] MEDS: INSULIN LANTUS (GLARGINE) 1 /0.01ml (100units/ml) SC SCH (23:10)
[2023-03-04] VITALS (8 sets, daily range): BP systolic 119–176; BP diastolic 56–74; PULSE 70–88; RESP 16–19; TEMP 97.6–98.5; O2SAT 96–99
[2023-03-04] MEDS: SODIUM CHLORIDE 0.9% 1,000 ML IV SCH ×3 (00:06→20:00)
[2023-03-04] MEDS: PRAVASTATIN SODIUM 20 MG TAB PO SCH ×2 (00:12→21:11)
[2023-03-04] MEDS: GABAPENTIN 300 MG CAP PO SCH ×3 (06:07→21:11)
[2023-03-04] MEDS: ACCU-CHEK COMFORT CURVE STRIP VI SCH ×4 (06:11→21:12)
[2023-03-04] MEDS: InsuLIN REG 1unit/0.01ml Soln (100units/ml) SC SCH ×4 (06:11→21:26)
[2023-03-04] MEDS: BUPROPION HCL PO SCH (06:13)
[2023-03-04 07:22] LABS: Basophils # (auto) 0 10 ^3/uL (0-0.2); Basophils % (auto) 0.4 % (0.0-2.0); Eosinophils # (auto) 0.2 10 ^3/uL (0-0.8); Eosinophils % (auto) 4.2 % (0.0-7.0); Hematocrit 34.1 % (36.0-46.0); Hemoglobin 11.3 g/dL (12.2-16.2); Lymphocytes # (auto) 1.8 10 ^3/uL (0.4-5.4); Lymphocytes % (auto) 39.1 % (10.0-50.0); Mean Corpuscular Hemoglobin 29.5 pg (28.0-32.0); Mean Corpuscular Volume 89.3 fL (80.0-100.0); Monocytes # (auto) 0.5 10 ^3/uL (0-1.3); Monocytes % (auto) 9.9 % (0.0-12.0); Neutrophils # (auto) 2.1 10 ^3/uL (1.6-8.6); Neutrophils % (auto) 46.4 % (37.0-80.0); Nucleated Red Blood Cells % 0.1 %; Red Blood Cells 3.82 10^6/uL (4.0-5.20); Red Cell Distribution Width 14.7 % (11.8-14.3); White Blood Cell 4.6 10^3/uL (4.4-10.8)
[2023-03-04 08:31] LABS: Alanine Aminotransferase 43 U/L (7-40); Albumin 3.4 g/dL (3.2-4.8); Alkaline Phosphatase 98 U/L (46-116); Anion Gap 2.3 (5-15); Aspartate Aminotransferase 32 U/L (13-40); BUN/Creatinine Ratio 19.8 (10.0-20.0); Bilirubin, Total 0.5 mg/dL (0.2-1.0); Blood Urea Nitrogen 20 mg/dL (9-23); Calcium 8.4 mg/dL (8.5-10.1); Carbon Dioxide 27.7 mmol/L (20-30); Chloride 110 mmol/L (98-107); Cholesterol 101 mg/dL (< 200); Glucose 101 mg/dL (74-106); HDL Cholesterol 43 mg/dL (40-59); LDL Cholesterol 50 mg/dL (< 100); Potassium 4.5 mmol/L (3.5-5.1); Sodium 140 mmol/L (136-145); Triglycerides 58 mg/dL (< 150)
[2023-03-04 08:32] LABS: Total Protein 6.3 g/dL (5.7-8.2)
[2023-03-04] MEDS: cefTRIAXone 1GM/50ML D5W 50 ML IV SCH (09:20)
[2023-03-04] MEDS: CITALOPRAM HYDROBR 20 MG TAB PO SCH (09:20)
[2023-03-04] MEDS: MIRABEGRON BASE PO SCH (09:21)
[2023-03-04] MEDS: ENOXAPARIN SOD 40 MG/0.4 ML SYRINGE SC SCH (09:21)
[2023-03-04] MEDS: hydrALAZINE HCL 20 MG/ML VL IV PRN ×2 (12:18→22:19)
[2023-03-04] MEDS: INSULIN LANTUS (GLARGINE) 1 /0.01ml (100units/ml) SC SCH (21:27)
[2023-03-05 05:00] VITALS: BP 127/53; PULSE 76; RESP 19; TEMP 97.9; O2SAT 98
[2023-03-05 05:45] LABS: Basophils # (auto) 0 10 ^3/uL (0-0.2); Basophils % (auto) 0.4 % (0.0-2.0); Eosinophils # (auto) 0.2 10 ^3/uL (0-0.8); Eosinophils % (auto) 4.2 % (0.0-7.0); Hematocrit 34.5 % (36.0-46.0); Hemoglobin 11.4 g/dL (12.2-16.2); Lymphocytes # (auto) 2.6 10 ^3/uL (0.4-5.4); Lymphocytes % (auto) 46.2 % (10.0-50.0); Mean Corpuscular Hemoglobin 29.7 pg (28.0-32.0); Mean Corpuscular Hgb Conc. 33.1 g/dL (32.0-36.0); Mean Corpuscular Volume 89.8 fL (80.0-100.0); Monocytes # (auto) 0.5 10 ^3/uL (0-1.3); Monocytes % (auto) 8.9 % (0.0-12.0); Neutrophils # (auto) 2.3 10 ^3/uL (1.6-8.6); Neutrophils % (auto) 40.3 % (37.0-80.0); Nucleated Red Blood Cells % 0.1 %; Red Blood Cells 3.85 10^6/uL (4.0-5.20); Red Cell Distribution Width 14.4 % (11.8-14.3); White Blood Cell 5.7 10^3/uL (4.4-10.8)
[2023-03-05 05:54] LABS: Anion Gap 5.1 (5-15); Carbon Dioxide 27.9 mmol/L (20-30); Chloride 107 mmol/L (98-107); Potassium 3.9 mmol/L (3.5-5.1); Sodium 140 mmol/L (136-145)
[2023-03-05 05:55] LABS: Calcium 8.6 mg/dL (8.7-10.4)
[2023-03-05 06:00] LABS: BUN/Creatinine Ratio 18.6 (10.0-20.0); Blood Urea Nitrogen 18 mg/dL (9-23); Glucose 135 mg/dL (74-106)
[2023-03-05] MEDS: ACCU-CHEK COMFORT CURVE STRIP VI SCH ×3 (06:12→17:47)
[2023-03-05] MEDS: GABAPENTIN 300 MG CAP PO SCH ×2 (06:12→12:50)
[2023-03-05] MEDS: SODIUM CHLORIDE 0.9% 1,000 ML IV SCH ×2 (06:18→16:00)
[2023-03-05] MEDS: InsuLIN REG 1unit/0.01ml Soln (100units/ml) SC SCH ×3 (06:19→17:47)
[2023-03-05] MEDS: BUPROPION HCL PO SCH (06:46)
[2023-03-05 08:20] VITALS: PULSE 74
[2023-03-05 09:00] VITALS: BP 153/78; PULSE 78; RESP 18; TEMP 98.7; O2SAT 96
[2023-03-05] MEDS: MIRABEGRON BASE PO SCH (10:00)
[2023-03-05] MEDS ORDERED: CIPR-273 PO (10:11)
[2023-03-05] MEDS: CITALOPRAM HYDROBR 20 MG TAB PO SCH (10:25)
[2023-03-05] MEDS: ENOXAPARIN SOD 40 MG/0.4 ML SYRINGE SC SCH (10:30)
[2023-03-05] MEDS: cefTRIAXone 1GM/50ML D5W 50 ML IV SCH (10:31)
[2023-03-05 13:00] VITALS: BP 119/42; PULSE 82; RESP 18; TEMP 97.4; O2SAT 99
[2023-03-05 17:00] VITALS: BP 166/61; PULSE 83; RESP 20; TEMP 97.7; O2SAT 94
== END 2023-03-05 19:00 | disposition home health service (06) | DRG 683 ==
LOC: ER 10:50 → EDBD 10:50 → TELE 13:48 → TELE-EAST 03-04 02:33
PROVIDERS: ADMIT Nurse Practitioner Family; ATTEND Internal Medicine Geriatric Medicine
DX: N17.9 Acute kidney failure, unspecified (principal); I69.354 Hemiplegia and hemiparesis following cerebral infarction affecting left non-dominant side; N39.0 Urinary tract infection, site not specified; I95.9 Hypotension, unspecified; N18.31 Chronic kidney disease, stage 3a; F41.9 Anxiety disorder, unspecified; N32.81 Overactive bladder; G89.29 Other chronic pain; D64.9 Anemia, unspecified; M19.90 Unspecified osteoarthritis, unspecified site; I12.9 Hypertensive chronic kidney disease with stage 1 through stage 4 chronic kidney disease, or unspecified chronic kidney disease; G40.909 Epilepsy, unspecified, not intractable, without status epilepticus; E11.22 Type 2 diabetes mellitus with diabetic chronic kidney disease; I25.2 Old myocardial infarction
CPT/HCPCS: 36415; 71045; 80048; 80053; 80061; 81001; 82962; 83036; 83880; 84484; 85025; 87086; 87088; 87186; 93005; 96360; 96372; 97163; 99291; G0378; J0696; J1815

== ENCOUNTER 2024-08-08 16:44 | Inpatient (IN) | payer OTHER ==
[~2024-08-08] VITALS: Ht 167.6 cm; Wt 102.6 kg
[~2024-08-08 16:44] MED LIST changes: +BUPR150T18 PO; +CIPR-273 PO; -CIPR250T3 PO; +ESCI5TAB20 PO; -GABA-1308 OR; +MIRA25TA PO; +TRAM50TA2 PO
--- NOTE | 2024-08-08 17:18 | ED.PDOC ---
Altered Mental Status HPI Comments 73 year old female GREG presents to the ED with chief complaint of ALOC and hyperglycemia. EMS reports that the patient had been noted by her daughter to be more delirious than usual along with having associated generalized weakness and hyperglycemia. EMS relays that the patient was at 81% spO2 on RA so patient was given a breathing treatment and 4L of O2 via NC, going up to 94%. Patient states she feels "sick" and admits to missing doses of her insulin. EMS notes that the patient's blood glucose was 520 at the scene, providing a 1L bolus of NS. Patient denies any chest pain, SOB, dizziness, headache, fever, or chills. Chief Complaint: ALOC Time Seen by MD: 17:13 Primary Care Provider: SIVAKUMAR Reviewed Notes: Nurses Notes, Animal Damage Control Agent Notes, Medications, Allergies Allergies: Coded Allergies: NO KNOWN ALLERGIES (Verified , 03/03/23) Home Meds Active Scripts Ciprofloxacin Hcl (Cipro) 250 Mg Tab, 250 MG PO BID for 7 Days, #14 TAB Prov:KWABNEA HERNANDEZ MD 03/05/23 Pantoprazole Sodium Sesquihydr (Protonix) 40 Mg Tab, 40 MG PO DAILY, #30 TAB Prov:KWABENA HERNANDEZ MD 07/19/22 Insulin Glargine (Lantus) 100 Unit/Ml Inj, 15 UNITS SC HS for 30 Days, #1000 INJ Prov:KWABENA HERNANDEZ MD 03/18/22 Reported Medications [employer] (MYRBETRIQ) 25 Mg Tab, 1 TAB PO DAILY 03/03/23 Tramadol Hcl (Tramadol Hcl) 50 Mg Tab, 1 TAB PO Q6HPRN PRN 03/03/23 Bupropion Hcl (Bupropion Hcl Xl) 150 Mg Tab, 1 TAB PO QAM 03/03/23 Escitalopram Oxalate (ESCITALOPRAM OXALATE) 5 Mg Tab, 1 TAB PO DAILY 03/03/23 Divalproex Sodium (Divalproex Sodium) 500 Mg Tab, 1 TAB PO BID 05/15/22 Semaglutide (Ozempic) 4 Mg/3 Ml Inj, 1 MG SC QWEEKLY 05/15/22 Lactulose (Lactulose) 10 Gm/15 Ml Cristal, 30 ML PO [id number], ML 03/28/21 Biotin (Vitamin H) (Biotin 5000) 5 Mg Cap, 5 MG PO DAILY, CAP 03/28/21 Pioglitazone Hydrochloride (ACTOS TABLET) 30 Mg Tb, 15 MG PO DAILY, TAB 03/28/21 Docusate Sodium (Docusate Sodium) 100 Mg Tab, 100 MG PO DAILYP PRN for FOR CONSTIPATION for 30 Days, MG 03/28/21 Pravastatin Sodium (PRAVACHOL TABLET) 20 Mg Tb, 80 MG PO HS, TAB 03/28/21 Metformin Hydrochloride (Metformin Hcl) 500 Mg Tab, 1000 MG PO BID for 30 Days, MG 03/28/21 Gabapentin (Gabapentin) 600 Mg Tab, 600 MG PO TID for 30 Days, MG 03/28/21 Insulin Lispro (Human) (Humalog) 100 Mg/Ml Inj 03/21/12 Fluoxetine Hcl (Pmdd) (Fluoxetine) 20 Mg Cap, 20 MG OR DAILY, #2 12/18/11 Information Source: Patient, Emergency Med Personnel Mode of Arrival: EMS Severity: Severe, Unable to Care for Self Timing: Days Duration: Since onset Prehospital treatment: None Quality: Change in Behavior, Confusion History of: CVA, Diabetes, On Insulin Past Medical History PAST MEDICAL HISTORY: Angina, Anxiety, CKF, CVA, DM, HTN, SC, Seizures Surgical History: Denies all surgeries 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 AND MARKETING ENGINEER History Family History Family History: Reviewed,noncontributory to illness Social History Smoker: Non-Smoker Alcohol: Denies ETOH Use Drugs: Denies Drug Use Lives In: Home Constitutional: reports: weakness; denies: chills, diaphoresis, fatigue, fever, malaise, sweats, others EENTM: denies: blurred vision, double vision, ear bleeding, ear discharge, ear drainage, ear pain, ear ringing, eye pain, eye redness, hearing loss, mouth pain, mouth swelling, nasal discharge, nose bleeding, nose congestion, nose pain, photophobia, tearing, throat pain, throat swelling, voice changes, others Respiratory: denies: cough, hemoptysis, orthopnea, SOB at rest, shortness of breath, SOB with excertion, stridor, wheezing, others Cardiovascular: denies: chest pain, dizzy spells, diaphoresis, Dyspnea on exertion, edema, irregular heart beat, left arm pain, lightheadedness, palpitations, PND, syncope, others Gastrointestinal: denies: abdomen distended, abdominal pain, blood streaked bowels, constipated, diarrhea, dysphagia, difficulty swallowing, hematemesis, melena, nausea, poor appetite, poor fluid intake, rectal bleeding, rectal pain, vomiting, others Genitourinary: denies: abnormal vagina bleeding, burning, dyspareunia, dysuria, flank pain, frequency, hematuria, incontinence, pain, , vagina discharge, urgency, others Neurological: denies: dizziness, fainting, headache, left sided numbness, left sided weakness, numbness, paresthesia, pre-existing deficit, right sided numbness, right sided weakness, seizure, speech problems, tingling, tremors, weakness, others Musculoskeletal: denies: back pain, gout, joint pain, joint swelling, muscle pain, muscle stiffness, neck pain, others Integumetry: denies: bruises, change in color, change in hair/nails, dryness, laceration, lesions, lumps, rash, wounds, others Allergic/Immunocompromised: denies: Difficulty Healing, Frequent Infections, Hives, Itching, others Hematologic/Lymphatic: denies: anemia, blood clots, easy bleeding, easy bruising, swollen glands, others Endocrine: reports: others (Hyperglycemic); denies: excessive hunger, excessive sweating, excessive thirst, excessive urination, flushing, intolerance to cold, intolerance to heat, unexplained weight gain, unexplained weight loss Psychiatric: denies: anxiety, bipolar disorder, depression, hopeless, panic disorder, schizophrenia, sleepless, suicidal, others Unable to Obtain due to: Altered Mental Status All Other Systems: Reviewed and Negative Physical Exam General Appearance: Other (Tired appearing, no distress) HEENT: Normal ENT Inspection, Pharynx Normal, TMs Normal Neck: Full Range of Motion, Non-Tender, Normal, Normal Inspection Respiratory: Chest Non-Tender, Lungs Clear, No Accessory Muscle Use, No Respira tory Distress, Normal Breath Sounds Cardiovascular: No Edema, No JVD, No Murmur, No Gallop, Normal Peripheral Pulses, Regular Rate/Rhythm Breast Exam: Deferred Gastrointestinal: No Organomegaly, Non Tender, No Pulsatile Mass, Normal Bowel Sounds, Soft Genitalia: Deferred Pelvic: Deferred Rectal: Deferred Extremities: No calf tenderness, Normal capillary refill, Normal inspection, Normal range of motion, Non-tender, No pedal edema Musculoskeletal : Apperance: Normal Neurologic: Alert, classroom technology coach II-XII nml as Tested, No Motor Deficits, Normal Affect, Normal Mood, No Sensory Deficits Cerebellar Function: NOT DONE Reflexes: NOT DONE Skin: Dry, Normal Color, Warm Lymphatic: No Adenopathy Was a procedure done? Was a procedure done?: No Differential Diagnosis (ALOC) Differential Diagnosis: Dehydration, Hypoglycemia, DKA, Encephalopathy, Sepsis, Seizure, CVA, SAH, Heart Failure X-Ray, Labs, Meds, VS Vital Signs Date Time Temp Pulse Resp B/P (MAP) Pulse Ox O2 Delivery O2 Flow Rate FiO2 08/08/24 18:54 98.8 08/08/24 18:10 98.8 94 18 135/59 (84) 97 98.8 08/08/24 17:45 102.6 98 33 77/23 (41) 96 102.6 08/08/24 17:45 98 25 96 Nasal Cannula* 4 36 08/08/24 17:42 102.6 08/08/24 17:17 106 08/08/24 16:48 102.6 105 54 113/65 (81) 94 89/51 (64) Lab Test 08/08/24 18:30 08/08/24 18:29 08/08/24 17:47 08/08/24 16:53 Range/Units Urine Color Yellow Yellow Urine Clarity Turbid H Clear Urine pH 5.5 5.0-9.0 Urine Specific [place] 1.018 1.001-1.035 Urine Protein 1+ H Negative Urine Ketones Trace Negative Urine Blood Trace H Negative /uL Urine Nitrite Negative Negative Urine Bilirubin 1+ H Negative Urine Urobilinogen 3 H Negative mg/dL Urine Leukocyte Esterase 3+ Negative /uL Urine RBC 7 0 - 4 /hpf Urine Microscopic WBC 57 H 0-5 /HPF Urine Squamous Epithelial Cells Few <5 /hpf Urine Bacteria None seen None Seen /hpf Urine Granular Casts Few 0 /lpf Urine Glucose 3+ H Normal mg/dL White Blood Count 7.4 4.4-10.8 10^3/uL Red Blood Count 3.43 L 4.0-5.20 10^6/uL Hemoglobin 10.6 L 12.2-16.2 g/dL Hematocrit 31.9 L 36.0-46.0 % Mean Corpuscular Volume 93.1 80.0-100.0 fL Mean Corpuscular Hemoglobin 30.8 28.0-32.0 pg Mean Corpuscular Hemoglobin Concent 33.1 32.0-36.0 g/dL Red Cell Distribution Width 14.1 11.8-14.3 % Platelet Count 154 140-450 10^3/uL Mean Platelet Volume 8.1 6.9-10.8 fL Neutrophils (%) (Auto) 75.2 37.0-80.0 % Lymphocytes (%) (Auto) 10.5 10.0-50.0 % Monocytes (%) (Auto) 14.0 H 0.0-12.0 % Eosinophils (%) (Auto) 0.0 0.0-7.0 % Basophils (%) (Auto) 0.3 0.0-2.0 % Neutrophils # (Auto) 5.5 1.6-8.6 10 ^3/uL Lymphocytes # (Auto) 0.8 0.4-5.4 10 ^3/uL Monocytes # (Auto) 1.0 0-1.3 10 ^3/uL Eosinophils # (Auto) 0 0-0.8 10 ^3/uL Basophils # (Auto) 0 0-0.2 10 ^3/uL Nucleated Red Blood Cells 0.2 % Sodium Level 132 L 136-145 mmol/L Potassium Level 4.1 3.5-5.1 mmol/L Chloride Level 101 98-107 mmol/L Carbon Dioxide Level 22 20-31 mmol/L Anion Gap 9 5-15 Blood Urea Nitrogen 34 H 9-23 mg/dL Creatinine 1.96 H 0.550-1.02 mg/dL Glomerular Filtration Rate Calc 27 >90 mL/min BUN/Creatinine Ratio 17.3 10.0-20.0 Serum Glucose 484 *H 74-106 mg/dL Lactic Acid Level 2.6 *H 0.4-2.0 mmol/L Calcium Level 8.7 8.7-10.4 mg/dL B-Type Natriuretic Peptide 145.38 0-100 pg/mL Lipase 24 12-53 U/L Influenza Type A Antigen Positive Negative Influenza Type B Antigen Negative Negative SARS-CoV-2 Antigen (Rapid) Negative NEGATIVE POC Glucose 457 *H 70-106 mg/dl Test 08/08/24 16:52 Range/Units POC Glucose 450 *H 70-106 mg/dl Current Medications Medications (Trade) Dose Ordered Sig/Eduin Route Start Time Stop Time Status Last Admin Acetaminophen (Tylenol Tablet) 650 mg ONCE ONCE PO 08/08/24 17:15 08/08/24 17:16 DC 08/08/24 17:42 Sodium Chloride 1,000 ml @ 1,000 mls/hr Q1H ONCE IV 08/08/24 17:45 08/08/24 18:44 DC 08/08/24 17:48 Piperacillin Sod/ Tazobactam Sod 100 ml @ 100 mls/hr ONCE ONCE IV 08/08/24 18:00 08/08/24 18:59 DC 08/08/24 18:32 Vancomycin HCl 250 ml @ 250 mls/hr ONCE ONCE IV 08/08/24 18:15 08/08/24 19:14 DC 08/08/24 19:34 X-Ray, Labs, Meds, VS Comment 73-year-old female here today for altered level of consciousness and weakness and respiratory distress. Workup notable for influenza a positive, hypergly cemia with sugar in the 400s without evidence of DKA or HHS. Lactic acid elevated in his setting of UA with positive UTI. Patient is started on fluids and broad-spectrum antibiotics. Patient admitted for further management and care. Time of 1ST Reevaluation: 18:13 Reevaluation 1ST: Unchanged Patient Education/Counseling: Diagnosis, Treatment Family Education/Counseling: No Family Present Departure 1 Departure Time of Disposition: 20:29 Impression: Primary Impression: Influenza A Additional Impressions: UTI (urinary tract infection) Altered mental status Lactic acidosis Hyperglycemia Disposition: ADMITTED INPATIENT Admit to: Tele Condition: Guarded Critical Care Note Critical Care Time?: Yes (45 min-critical care time only) Stability Stability form required: No Heart Score Heart Score: Heart Score Response (Comments) Value History N/A 0 EKG N/A 0 Age N/A 0 Risk Factors N/A 0 Troponin N/A 0 Total 0 I personally scribed for CRISTOPHER NASCIMENTO MD ([email or web address]) on 08/08/24 at 17:18. Electronically submitted by Ronni Andrew ([email or web address]). CRISTOPHER NASCIMENTO MD Aug 08, 2024 17:18
--- NOTE | 2024-08-08 17:21 | ECG ---
[facility] Test Date: 2024-08-08 Test Time: 17:17:03 Pat Name: RANJANA HUNTER Department: ED Room: Gender: F Veneer Sawyer: : 1950 Requested By: CRISTOPHER NASCIMENTO Order Number: [id number] Reading MD: Measurements Intervals [place] Rate: 106 P: 21 FL: 136 QRS: 82 QRSD: 89 T: 36 QT: 345 QTc: 459 Interpretive Statements Sinus tachycardia Borderline right axis deviation Please click the below link to view image of tracing.
[2024-08-08] MEDS: ACETAMINOPHEN 325 MG TAB PO ONE (17:42)
[2024-08-08 17:45] VITALS: PULSE 98; RESP 25; O2SAT 96
[2024-08-08] MEDS: SODIUM CHLORIDE 0.9% 1,000 ML IV ONE ×2 (17:48→20:52)
[2024-08-08] MEDS ORDERED: PIPERACILLIN-TAZOB 3.375GM 100 ML IV ONE (18:00)
--- NOTE | 2024-08-08 18:16 | DVH ---
EXAM: CT HEAD WITHOUT CONTRAST HISTORY: ALOC COMPARISON: HEAD WITHOUT CONTRAST on DOS: 07/30/22, HEAD WITHOUT CONTRAST on DOS: 07/12/22 TECHNIQUE: Axial images were obtained and reformatted in coronal and sagittal planes. All CT scans at this medical facility are performed using dose modulation techniques as appropriate t o a performed exam including the following: Automated exposure control was utilized; adjustment of th e MA and/or KV according to patient size; and use of iterative reconstruction technique. CT Dose: CTDI volume is 55.11 mGy. Dose-length product is 883.48 mGy*cm FINDINGS: Supratentorial Region: No evidence for large acute territorial ischemia. No intracranial hemorrhage is noted. Posterior Fossa: No acute abnormality. Brainstem: Unremarkable. Sellar/Suprasellar Region: Unremarkable. Ventricles, Cisterns, Sulci: Age-appropriate. Orbits: Unremarkable. Paranasal Sinuses: Moderate ethmoid sinus mucosal thickening noted. Mastoid Air Cells: Unremarkable. Vasculature: Unremarkable. Bones/Soft Tissues: No acute abnormality. Other: None. IMPRESSION: 1. No acute intracranial process. 2. Mild chronic paranasal sinus disease.
--- NOTE | 2024-08-08 18:16 | DVH ---
CHEST RADIOGRAPH Indication: SEPSIS Technique: Single frontal view of the chest was obtained COMPARISON: XY CHEST PORTABLE on DOS: 03/03/23, CXRP on DOS: 07/12/22, CHEST PORTABLE on DOS: 07/12/22, EK G on DOS: 05/13/22, EKG on DOS: 05/13/22 FINDINGS: Lines and Tubes: None Lungs: Congestion Pleura: No effusion. No pneumothorax. Cardiomediastinal contours: Cardiomegaly Bones: Unremarkable IMPRESSION: Mild pulmonary vascular congestion
[2024-08-08] MEDS: PIPERACILLIN-TAZOB 3.375GM 100 ML IV ONE (18:32)
[2024-08-08 18:39] LABS: COVID19 ANTIGEN SOFIA FIA NEGATIVE (NEGATIVE)
[2024-08-08 18:43] LABS: Rapid Influenza A Positive (Negative); Rapid Influenza B Negative (Negative)
[2024-08-08 18:49] LABS: Urine Bacteria None Seen /hpf (None Seen)
[2024-08-08 18:55] LABS: Basophils # (auto) 0 10 ^3/uL (0-0.2); Basophils % (auto) 0.3 % (0.0-2.0); Eosinophils # (auto) 0 10 ^3/uL (0-0.8); Hematocrit 31.9 % (36.0-46.0); Hemoglobin 10.6 g/dL (12.2-16.2); Lymphocytes # (auto) 0.8 10 ^3/uL (0.4-5.4); Lymphocytes % (auto) 10.5 % (10.0-50.0); Mean Corpuscular Hemoglobin 30.8 pg (28.0-32.0); Mean Corpuscular Hgb Conc. 33.1 g/dL (32.0-36.0); Mean Corpuscular Volume 93.1 fL (80.0-100.0); Neutrophils # (auto) 5.5 10 ^3/uL (1.6-8.6); Neutrophils % (auto) 75.2 % (37.0-80.0); Nucleated Red Blood Cells % 0.2 %; Platelet Count (auto) 154 10^3/uL (140-450); Red Blood Cells 3.43 10^6/uL (4.0-5.20); Red Cell Distribution Width 14.1 % (11.8-14.3); White Blood Cell 7.4 10^3/uL (4.4-10.8)
[2024-08-08 19:02] LABS: Urine Blood TRACE /uL (Negative); Urine Clarity Turbid (Clear); Urine Color Yellow (Yellow); Urine Protein, UAD 1+ (Negative); Urine Specific Gravity 1.018 (1.001-1.035); Urine Squamous Epithelial Cell FEW /hpf (<5); Urine Urobilinogen 3 mg/dL (Negative); Urine WBC 57 /HPF (0-5); Urine pH 5.5 (5.0-9.0)
[2024-08-08 19:04] LABS: Chloride 101 mmol/L (98-107); Potassium 4.1 mmol/L (3.5-5.1)
[2024-08-08 19:05] LABS: Anion Gap 9 (5-15); Carbon Dioxide 22 mmol/L (20-31)
[2024-08-08 19:11] LABS: BUN/Creatinine Ratio 17.3 (10.0-20.0)
[2024-08-08] MEDS: VANCOMYCIN 1GM/250ML KIT 250 ML IV ONE (19:34)
[2024-08-08 19:35] LABS: Sodium 132 mmol/L (136-145)
[2024-08-08 19:36] LABS: Blood Urea Nitrogen 34 mg/dL (9-23); Calcium 8.7 mg/dL (8.7-10.4)
[2024-08-08 19:37] LABS: Glucose 484 mg/dL (74-106)
[2024-08-08 19:38] LABS: Lactic Acid w/Reflex 2.6 mmol/L (0.4-2.0)
[2024-08-08 20:10] VITALS: PULSE 89; RESP 18; O2SAT 95
[2024-08-08] MEDS: VANCOMYCIN PER PHARMACY 0 MG IV SCH (20:28)
[2024-08-08] MEDS ORDERED: ALBUTEROL SULF 2.5 MG/0.5ML(0.5%) NEB SOLN NEB PRN (22:45)
[2024-08-08] MEDS ORDERED: DEXTROSE (50%) 50ML SYRG IV PRN (22:45)
[2024-08-08] MEDS ORDERED: ONDANSETRON HCL 4 MG/2 ML VIAL IV PRN (23:00)
[2024-08-08 23:27] VITALS: BP 111/45; PULSE 82; RESP 16; TEMP 98.8; O2SAT 98
[2024-08-08 23:59] VITALS: BP 119/48; PULSE 79; RESP 20; TEMP 98.8; O2SAT 100
[2024-08-09] VITALS (11 sets, daily range): BP systolic 100–168; BP diastolic 40–78; PULSE 16–98; RESP 16–20; TEMP 97.8–99.3; O2SAT 95–99
[2024-08-09] MEDS ORDERED: SEMA1INJ2 (00:27)
[2024-08-09] MEDS ORDERED: INSUINJ37 SC (00:27)
--- NOTE | 2024-08-09 01:18 | DVHHP2 ---
History of Present Illness Reason for Visit: Altered mental status History of Present Illness 73-year-old female presents for evaluation of altered mental status. Patient was noted to be lethargic yesterday. No unilateral weakness or slurred speech reported. Patient was also noted to have elevated blood sugar greater than 400. Currently she is lethargic oriented x1. Past Medical History CVA, chronic kidney disease, diabetes mellitus, hypertension, mi and seizures Past Surgical History None Family History Noncontributory Smoke: No ALCOHOL: none Drugs: None Lives: with Family Review of Systems Review of Systems Review of systems are currently negative otherwise addressed in HPI. Allergies: Coded Allergies: NO KNOWN ALLERGIES (Verified , 03/03/23) Medications Current Medications Medications Dose Ordered Sig/Eduin Route Start Time Stop Time Status Last Admin Dose Admin Ceftriaxone Sodium 50 ml @ 100 mls/hr DAILY@09 IV 08/09/24 09:00 Azithromycin 250 ml @ 125 mls/hr DAILY IV 08/09/24 10:00 Albuterol 2.5 mg Q6HPRN PRN NEB 08/08/24 22:45 Levetiracetam 500 mg BID PO 08/09/24 10:00 Divalproex Sodium 500 mg BID PO 08/09/24 10:00 Pravastatin Sodium 80 mg HS PO 08/09/24 22:00 Diagnostic Test (Pha) 1 strip IQ4HR 08/09/24 00:00 08/09/24 00:00 1 STRIP Insulin Human Regular IQ4HR SC 08/09/24 00:00 08/09/24 00:00 15 UNITS Dextrose 50 ml UD PRN IV 08/08/24 22:45 Ondansetron HCl 4 mg Q4HP PRN IV 08/08/24 23:00 Acetaminophen 650 mg Q6HP PRN PO 08/08/24 23:00 Enoxaparin Sodium 30 mg DAILY SC 08/09/24 10:00 Exam Vital Signs Vital Signs Date Time Temp Pulse Resp B/P (MAP) Pulse Ox O2 Delivery O2 Flow Rate FiO2 08/08/24 23:59 98.8 79 20 119/48 (71) 100 98.8 08/08/24 23:27 4.0 36 08/08/24 23:27 Nasal Cannula* Exam Gen: 73-year-old female in mild distress Skin: Warm, dry, normal color and texture, no rash. HEENT: Normocephalic atraumatic, mucous membranes moist and pink. Neck: Cervical and supraclavicular nodes normal without enlargement, trachea is midline, thyroid gland is normal without masses. Pulmonary: Clear to auscultation and percussion bilaterally. Cardiac: Regular rate and rhythm. No murmur Abdomen: Soft, nontender, nondistended, bowel sounds present all 4 quadrants, no guarding, no rigidity, no organomegaly. Extremities: No cyanosis, clubbing, no edema Neuro: Cranial nerves II through XII grossly intact, normal affect and speech, n o focal motor deficits. Labs/Xrays ORDERING PHYSICIAN: CRISTOPHER NASCIMENTO MD PROCEDURE(s): CXRP - CHEST PORTABLE REASON: SEPSIS ORDER NUMBER(s): [id number], ACCESSION NUMBER(s): [id number] CHEST RADIOGRAPH Indication: SEPSIS Technique: Single frontal view of the chest was obtained COMPARISON: XY CHEST PORTABLE on DOS: 03/03/23, CXRP on DOS: 07/12/22, CHEST PORTABLE on DOS: 07/12/22, EKG on DOS: 05/13/22, EKG on DOS: 05/13/22 FINDINGS: Lines and Tubes: None Lungs: Congestion Pleura: No effusion. No pneumothorax. Cardiomediastinal contours: Cardiomegaly Bones: Unremarkable IMPRESSION: Mild pulmonary vascular congestion ATED BY: TODD LAURENT MD ORDERING PHYSICIAN: CRISTOPHER NASCIMENTO MD PROCEDURE(s): HWOCT - HEAD WITHOUT CONTRAST REASON: ALOC ORDER NUMBER(s): [id number], ACCESSION NUMBER(s): [id number] EXAM: CT HEAD WITHOUT CONTRAST HISTORY: ALOC COMPARISON: HEAD WITHOUT CONTRAST on DOS: 07/30/22, HEAD WITHOUT CONTRAST on DOS: 07/12/22 TECHNIQUE: Axial images were obtained and reformatted in coronal and sagittal planes. All CT scans at this medical facility are performed using dose modulation techniques as appropriate to a performed exam including the following: Automated exposure control was utilized; adjustment of the MA and/or KV according to patient size; and use of iterative reconstruction technique. CT Dose: CTDI volume is 55.11 mGy. Dose-length product is 883.48 mGy*cm FINDINGS: Supratentorial Region: No evidence for large acute territorial ischemia. No intracranial hemorrhage is noted. Posterior Fossa: No acute abnormality. Brainstem: Unremarkable. Sellar/Suprasellar Region: Unremarkable. Ventricles, Cisterns, Sulci: Age-appropriate. Orbits: Unremarkable. Paranasal Sinuses: Moderate ethmoid sinus mucosal thickening noted. Mastoid Air Cells: Unremarkable. Vasculature: Unremarkable. Bones/Soft Tissues: No acute abnormality. Other: None. IMPRESSION: 1. No acute intracranial process. 2. Mild chronic paranasal sinus disease. Labs Test 08/08/24 20:24 08/08/24 18:30 08/08/24 18:29 08/08/24 17:47 Range/Units Lactic Acid Level 1.9 0.4-2.0 mmol/L Urine Color Yellow Yellow Urine Clarity Turbid H Clear Urine pH 5.5 5.0-9.0 Urine Specific [place] 1.018 1.001-1.035 Urine Protein 1+ H Negative Urine Ketones Trace Negative Urine Blood Trace H Negative /uL Urine Nitrite Negative Negative Urine Bilirubin 1+ H Negative Urine Urobilinogen 3 H Negative mg/dL Urine Leukocyte Esterase 3+ Negative /uL Urine RBC 7 0 - 4 /hpf Urine Microscopic WBC 57 H 0-5 /HPF Urine Squamous Epithelial Cells Few <5 /hpf Urine Bacteria None seen None Seen /hpf Urine Granular Casts Few 0 /lpf Urine Glucose 3+ H Normal mg/dL White Blood Count 7.4 4.4-10.8 10^3/uL Red Blood Count 3.43 L 4.0-5.20 10^6/uL Hemoglobin 10.6 L 12.2-16.2 g/dL Hematocrit 31.9 L 36.0-46.0 % Mean Corpuscular Volume 93.1 80.0-100.0 fL Mean Corpuscular Hemoglobin 30.8 28.0-32.0 pg Mean Corpuscular Hemoglobin Concent 33.1 32.0-36.0 g/dL Red Cell Distribution Width 14.1 11.8-14.3 % Platelet Count 154 140-450 10^3/uL Mean Platelet Volume 8.1 6.9-10.8 fL Neutrophils (%) (Auto) 75.2 37.0-80.0 % Lymphocytes (%) (Auto) 10.5 10.0-50.0 % Monocytes (%) (Auto) 14.0 H 0.0-12.0 % Eosinophils (%) (Auto) 0.0 0.0-7.0 % Basophils (%) (Auto) 0.3 0.0-2.0 % Neutrophils # (Auto) 5.5 1.6-8.6 10 ^3/uL Lymphocytes # (Auto) 0.8 0.4-5.4 10 ^3/uL Monocytes # (Auto) 1.0 0-1.3 10 ^3/uL Eosinophils # (Auto) 0 0-0.8 10 ^3/uL Basophils # (Auto) 0 0-0.2 10 ^3/uL Nucleated Red Blood Cells 0.2 % Sodium Level 132 L 136-145 mmol/L Potassium Level 4.1 3.5-5.1 mmol/L Chloride Level 101 98-107 mmol/L Carbon Dioxide Level 22 20-31 mmol/L Anion Gap 9 5-15 Blood Urea Nitrogen 34 H 9-23 mg/dL Creatinine 1.96 H 0.550-1.02 mg/dL Glomerular Filtration Rate Calc 27 >90 mL/min BUN/Creatinine Ratio 17.3 10.0-20.0 Serum Glucose 484 *H 74-106 mg/dL Calcium Level 8.7 8.7-10.4 mg/dL B-Type Natriuretic Peptide 145.38 0-100 pg/mL Lipase 24 12-53 U/L Influenza Type A Antigen Positive Negative Influenza Type B Antigen Negative Negative SARS-CoV-2 Antigen (Rapid) Negative NEGATIVE Test 08/08/24 16:53 Range/Units POC Glucose 457 *H 70-106 mg/dl Assessment/Plan Assessment/Plan Assessment Metabolic encephalopathy Acute respiratory failure Possible pneumonia Influenza Urinary tract infection Diabetes mellitus Acute kidney injury Plan Admit the patient to Med surge to the hospitalist Rocephin/azithromycin Med nebs Resume home medications Continue treatment per orders Plan discussed with: Patient My Orders Orders - ZACARIAS NICHOLS M AGACNP Procedure Category Date Status Time Basic Metabolic Panel LAB 08/09/24 Logged 04:00 Consistent DIET 08/09/24 Transmitted Carb(Ccho)Diabetes Breakfast Ceftriaxone 1gm/50ml PHA 08/09/24 In Process D5w (Rocephin) 09:00 Azithromycin 500mg/ PHA 2/25 In Process 250ml (Zithromax 50 10:00 Albuterol Medneb PHA 2 In Process (Ventolin Medneb) 22:45 Levetiracetam Tablet PHA 2/09/28 In Process (Keppra Tablet) 10:[address] Tablet PHA 2 In Process (Depakote "Dr" Tabl 10:00 Pravastatin Sodium PHA 08/09/24 In Process Tablet (Pravachol Tab 22:00 Glucose Blood PHA 08/09/24 In Process (Accu-Chek Comfort 00:00 Insulin R (Human) PHA 08/09/24 In Process (Insulin R) 00:00 Dextrose 50% Syringe PHA 08/08/24 In Process 22:45 Admit ADMIT 08/08/24 Transmitted 22:46 Ondansetron Hcl PHA 08/08/24 In Process (Zofran) 23:00 Condition: Stable HARSHAD 2 In Process 22:46 Acetaminophen Tablet PHA 08/08/24 In Process (Tylenol Tablet) 23:00 Bedrest With Bathroom HARSHAD 2/08/31 In Process Privileg 22:46 Enoxaparin Sodium PHA 2/09/28 In Process (Lovenox) 10:00 Date of Service: Aug 08, 2024 Billing Provider: ZACARIAS NICHOLS Common Visit Codes: [id number] INP/OBS CARE (HIGH) ZACARIAS NICHOLS Aug 09, 2024 01:18
[2024-08-09] MEDS: InsuLIN REG 1unit/0.01ml Soln (100units/ml) SC SCH ×3 (04:04→11:30)
--- NOTE | 2024-08-09 06:22 | DVH ---
CHEST RADIOGRAPH Indication: sob Technique: Single frontal view of the chest was obtained Comparison: XY CHEST PORTABLE on DOS: 08/08/24 FINDINGS: Lines and Tubes: None Lungs: Bilateral interstitial prominence. No focal consolidation. Pleura: No effusion. No pneumothorax. Cardiomediastinal contours: Cardiomegaly. Bones: No acute osseous abnormality. IMPRESSION: 1. Pulmonary vascular congestion, stable. 2. Stable cardiomegaly.
[2024-08-09 07:22] LABS: Basophils # (auto) 0 10 ^3/uL (0-0.2); Basophils % (auto) 0.1 % (0.0-2.0); Eosinophils # (auto) 0 10 ^3/uL (0-0.8); Eosinophils % (auto) 0.1 % (0.0-7.0); Hematocrit 31.7 % (36.0-46.0); Hemoglobin 10.7 g/dL (12.2-16.2); Lymphocytes # (auto) 1.2 10 ^3/uL (0.4-5.4); Lymphocytes % (auto) 18.1 % (10.0-50.0); Mean Corpuscular Hgb Conc. 33.7 g/dL (32.0-36.0); Mean Corpuscular Volume 92.1 fL (80.0-100.0); Monocytes # (auto) 0.5 10 ^3/uL (0-1.3); Monocytes % (auto) 7.7 % (0.0-12.0); Neutrophils # (auto) 4.7 10 ^3/uL (1.6-8.6); Platelet Count (auto) 166 10^3/uL (140-450); Red Blood Cells 3.45 10^6/uL (4.0-5.20); Red Cell Distribution Width 13.9 % (11.8-14.3); White Blood Cell 6.4 10^3/uL (4.4-10.8)
[2024-08-09 07:36] LABS: Chloride 103 mmol/L (98-107); Potassium 4.1 mmol/L (3.5-5.1); Sodium 137 mmol/L (136-145)
[2024-08-09 07:37] LABS: Anion Gap 6 (5-15); Calcium 8.8 mg/dL (8.7-10.4); Carbon Dioxide 28 mmol/L (20-31)
[2024-08-09 07:44] LABS: BUN/Creatinine Ratio 20.3 (10.0-20.0); Blood Urea Nitrogen 39 mg/dL (9-23); Glucose 328 mg/dL (74-106)
[2024-08-09] MEDS: cefTRIAXone 1GM/50ML D5W 50 ML IV SCH (08:33)
[2024-08-09] MEDS: OSELTAMIVIR 30 MG CAP PO SCH (09:38)
[2024-08-09] MEDS: levETIRAcetam 500 MG TAB PO SCH (09:38)
[2024-08-09] MEDS: ENOXAPARIN SOD 30 MG/0.3 ML SYRINGE SC SCH (09:39)
[2024-08-09] MEDS: AZITHROMYCIN 500MG/ 250ML 250 ML IV SCH (11:17)
[2024-08-09] MEDS: ACCU-CHEK COMFORT CURVE STRIP VI SCH ×2 (11:30)
--- NOTE | 2024-08-09 11:31 | DVHPN2 ---
Subjective Admitted for Influenza A and UTI, was confused, also ADAM Changes from previous H/P or p: Changes Objective Vitals Vital Signs Date Time Temp Pulse Resp B/P (MAP) Pulse Ox O2 Delivery O2 Flow Rate FiO2 08/09/24 10:00 99 Nasal Cannula* 4 36 08/09/24 08:54 98.6 75 16 101/40 (60) 98.6 Intake/Output Intake and Output 08/09/24 07:00 Intake Total 1450 ml Output Total 450 ml Balance 1000 ml Intake Oral 100 ml IV Total 1350 ml Output Urine Total 450 ml General Appearance: Alert, Oriented X3, Cooperative, No acute distress Lungs: Clear to auscultation, Normal air movement Cardiovascular: Regular rate, Normal S1, Normal S2 Abdomen: Normal bowel sounds, Soft, No tenderness Extremities: No edema Medications Current Medications Medications Dose Ordered Sig/Eduin Route Start Time Stop Time Status Last Admin Dose Admin Ceftriaxone Sodium 50 ml @ 100 mls/hr DAILY@09 IV 08/09/24 09:00 08/09/24 08:33 100 MLS/HR Azithromycin 250 ml @ 125 mls/hr DAILY IV 08/09/24 10:00 08/09/24 11:17 125 MLS/HR Albuterol 2.5 mg Q6HPRN PRN NEB 08/08/24 22:45 Levetiracetam 500 mg BID PO 08/09/24 10:00 08/09/24 09:38 500 MG Divalproex Sodium 500 mg BID PO 08/09/24 10:00 08/09/24 09:38 500 MG Pravastatin Sodium 80 mg HS PO 08/09/24 22:00 Diagnostic Test (Pha) 1 strip IQ4HR 08/09/24 00:00 08/09/24 11:17 1 STRIP Dextrose 50 ml UD PRN IV 08/08/24 22:45 Ondansetron HCl 4 mg Q4HP PRN IV 08/08/24 23:00 Acetaminophen 650 mg Q6HP PRN PO 08/08/24 23:00 Enoxaparin Sodium 30 mg DAILY SC 08/09/24 10:00 08/09/24 09:39 30 MG Oseltamivir Phosphate 30 mg Q12HR PO 08/09/24 10:00 08/14/24 09:59 08/09/24 09:38 30 MG Insulin Human Regular IQ4HR SC 08/09/24 04:00 08/09/24 08:40 8 UNITS Laboratory Results Laboratory Tests 08/09/24 06:49 Chemistry Test 08/08/24 18:29 08/09/24 06:49 Calcium Level 8.7 mg/dL (8.7-10.4) 8.8 mg/dL (8.7-10.4) Lipid panel Test 08/08/24 18:29 Lipase 24 U/L (12-53) Cardiac Markers Test 08/08/24 18:29 B-Type Natriuretic Peptide 145.38 pg/mL (0-100) Urinalysis Test 08/08/24 18:30 Urine Color Yellow (Yellow) Urine Clarity Turbid (Clear) H Urine pH 5.5 (5.0-9.0) Urine Specific [place] 1.018 (1.001-1.035) Urine Protein 1+ (Negative) H Urine Ketones Trace (Negative) Urine Blood Trace /uL (Negative) H Urine Nitrite Negative (Negative) Urine Bilirubin 1+ (Negative) H Urine Urobilinogen 3 mg/dL (Negative) H Urine Leukocyte Esterase 3+ /uL (Negative) Urine RBC 7 /hpf (0 - 4) Urine Microscopic WBC 57 /HPF (0-5) H Urine Squamous Epithelial Cells Few /hpf (<5) Urine Bacteria None seen /hpf (None Seen) Urine Granular Casts Few /lpf (0) Urine Glucose 3+ mg/dL (Normal) H Microbiology Microbiology Date/Time Source Procedure Growth Status 08/08/24 18:30 Voided Urine Urine Culture - Preliminary Resulted Assessment/Plan Assessment/Plan Acute metabolic encephalopathy Acute hypoxic respiratory failure UTI Influenza A+ Diabetes mellitus Acute kidney injury HTN Sz disorder Old CVA PLAN: IV antibiotics Tamiflu O2 prn Blood culture Urine culture IV fluids NS Plan discussed with: Patient Date of Service: Aug 09, 2024 Billing Provider: KWABENA HERNANDEZ MD Common Visit Codes: NOT BILLABLE KWABENA HERNANDEZ MD Aug 09, 2024 11:31
--- NOTE | 2024-08-09 13:12 | DVHSR ---
APPROVED REPORT EXAM: Two-dimensional and M-mode echocardiogram with Doppler and color Doppler. Blood Pressure: 140/78 mmHg INDICATION EF RISK FACTORS Height: 66, Weight: 215 DIMENSIONS LVDd4.7 (3.8-5.7cm)LA (2D)4.1 (1.9-4.0cm)Aortic Root3.1 (2.0-3.7cm) LVDs3.3 (2.5-4.0cm)LA (MM) (1.9-4.0cm)Aortic Cusp Exc1.7 (1.5-2.0cm) EF (%) 55.0 (55-70%)Rt. Atrium4.1 (1.9-4.0cm)Asc. Aorta cm IVSd1.0 (0.7-1.1cm)RV (D) (1.8-2.4cm) PWd1.2 (0.7-1.1cm) Mitral Valve MitralMitral Stenosis E wave1.08m/sMV Mean GR.mmHg A wave1.11m/sMV Peak GR.mmHg E/A ratio1.02D MVAcm2 DECEL [id number] 1/2 [id number] IVRTmsDop MVA4.14cm2 Aortic Valve Aortic ValveAortic Stenosis V10.75m/Addi Mean GR.3mmHg V21.17m/Addi Peak GR.5mmHg LVOT Diameter1.9 (1.8-2.4cm)Doppler AVA1.82cm2 Pulmonic Valve V20.96m/s Other Information Technically limited study due to body habitus. Conclusion Sinus rhythm. Biatrial enlargement. Normal valves. 55% ejection fraction with normal RV function. Mild TR. No pericardial effusion masses or vegetations noted.
[2024-08-09] MEDS: SODIUM CHLORIDE 0.9% 1,000 ML IV SCH (14:30)
[2024-08-09] MEDS: PRAVASTATIN SODIUM 20 MG TAB PO SCH (23:44)
[2024-08-10] VITALS (8 sets, daily range): BP systolic 117–165; BP diastolic 53–71; PULSE 79–94; RESP 18–20; TEMP 97.6–100.8; O2SAT 91–95
[2024-08-10 06:08] LABS: Basophils # (auto) 0 10 ^3/uL (0-0.2); Basophils % (auto) 0.2 % (0.0-2.0); Eosinophils # (auto) 0 10 ^3/uL (0-0.8); Eosinophils % (auto) 0.1 % (0.0-7.0); Hematocrit 31.4 % (36.0-46.0); Hemoglobin 10.6 g/dL (12.2-16.2); Lymphocytes # (auto) 1.1 10 ^3/uL (0.4-5.4); Lymphocytes % (auto) 20.9 % (10.0-50.0); Mean Corpuscular Hemoglobin 30.9 pg (28.0-32.0); Mean Corpuscular Hgb Conc. 33.9 g/dL (32.0-36.0); Mean Corpuscular Volume 91.3 fL (80.0-100.0); Monocytes # (auto) 0.5 10 ^3/uL (0-1.3); Monocytes % (auto) 9.5 % (0.0-12.0); Neutrophils # (auto) 3.7 10 ^3/uL (1.6-8.6); Neutrophils % (auto) 69.3 % (37.0-80.0); Nucleated Red Blood Cells % 0.1 %; Platelet Count (auto) 153 10^3/uL (140-450); Red Blood Cells 3.44 10^6/uL (4.0-5.20); White Blood Cell 5.3 10^3/uL (4.4-10.8)
[2024-08-10 06:11] LABS: Alanine Aminotransferase 21 U/L (7-40); Albumin 3.2 g/dL (3.2-4.8); Alkaline Phosphatase 74 U/L (46-116); Anion Gap 9 (5-15); Aspartate Aminotransferase 29 U/L (13-40); BUN/Creatinine Ratio 20.2 (10.0-20.0); Bilirubin, Total 0.4 mg/dL (0.2-1.0); Blood Urea Nitrogen 19 mg/dL (9-23); Carbon Dioxide 25 mmol/L (20-31); Chloride 102 mmol/L (98-107); Magnesium 1.8 mg/dL (1.6-2.6); Potassium 3.5 mmol/L (3.5-5.1); Total Protein 6.1 g/dL (5.7-8.2)
[2024-08-10 06:27] LABS: Calcium 8.5 mg/dL (8.7-10.4); Glucose 215 mg/dL (74-106); Sodium 136 mmol/L (136-145)
[2024-08-10] MEDS: OSELTAMIVIR 75 MG CAP PO SCH (10:22)
[2024-08-10] MEDS: ENOXAPARIN SOD 40 MG/0.4 ML SYRINGE SC SCH (10:22)
--- NOTE | 2024-08-10 10:46 | DVHPN2 ---
Subjective Tired Complains of poor appetite and weakness and cough Changes from previous H/P or p: Changes Objective Vitals Vital Signs Date Time Temp Pulse Resp B/P (MAP) Pulse Ox O2 Delivery O2 Flow Rate FiO2 08/10/24 09:00 99.1 92 18 139/60 (86) 91 99.1 08/09/24 23:16 Nasal Cannula 4.0 08/09/24 23:16 36 Intake/Output Intake and Output 08/10/24 07:00 Intake Total 1600 ml Output Total 775 ml Balance 825 ml Intake Oral 1300 ml IV Total 300 ml Output Urine Total 775 ml General Appearance: Alert, Oriented X3, Cooperative, No acute distress Lungs: Clear to auscultation, Normal air movement Cardiovascular: Regular rate, Normal S1, Normal S2 Abdomen: Normal bowel sounds, Soft, No tenderness Extremities: No edema Medications Current Medications Medications Dose Ordered Sig/Eduin Route Start Time Stop Time Status Last Admin Dose Admin Ceftriaxone Sodium 50 ml @ 100 mls/hr DAILY@09 IV 08/09/24 09:00 08/10/24 10:22 100 MLS/HR Azithromycin 250 ml @ 125 mls/hr DAILY IV 08/09/24 10:00 08/09/24 11:17 125 MLS/HR Albuterol 2.5 mg Q6HPRN PRN NEB 08/08/24 22:45 Levetiracetam 500 mg BID PO 08/09/24 10:00 08/10/24 10:22 500 MG Divalproex Sodium 500 mg BID PO 08/09/24 10:00 08/10/24 10:22 500 MG Pravastatin Sodium 80 mg HS PO 08/09/24 22:00 08/09/24 23:44 80 MG Dextrose 50 ml UD PRN IV 08/08/24 22:45 Ondansetron HCl 4 mg Q4HP PRN IV 08/08/24 23:00 Acetaminophen 650 mg Q6HP PRN PO 08/08/24 23:00 Insulin Human Regular ACHS SC 08/09/24 11:30 08/10/24 06:52 8 UNITS Diagnostic Test (Pha) 1 strip ACHS 08/09/24 11:30 08/10/24 06:53 1 STRIP Sodium Chloride 1,000 ml @ 75 mls/hr [id number] IV 08/09/24 11:30 08/10/24 00:50 75 MLS/HR Oseltamivir Phosphate 75 mg Q12HR PO 08/10/24 10:00 08/13/24 22:01 08/10/24 10:22 75 MG Enoxaparin Sodium 40 mg DAILY SC 08/10/24 10:00 08/10/24 10:22 40 MG Laboratory Results Laboratory Tests 08/10/24 05:16 Chemistry Test 08/10/24 05:16 Albumin 3.2 g/dL (3.2-4.8) Calcium Level 8.5 mg/dL (8.7-10.4) L Magnesium Level 1.8 mg/dL (1.6-2.6) Total Protein 6.1 g/dL (5.7-8.2) LFT Test 08/10/24 05:16 Alanine Aminotransferase (ALT) 21 U/L (7-40) Alkaline Phosphatase 74 U/L (46-116) Aspartate Amino Transferase (AST) 29 U/L (13-40) Total Bilirubin 0.4 mg/dL (0.2-1.0) Urinalysis Test 08/08/24 18:30 Urine Color Yellow (Yellow) Urine Clarity Turbid (Clear) H Urine pH 5.5 (5.0-9.0) Urine Specific [place] 1.018 (1.001-1.035) Urine Protein 1+ (Negative) H Urine Ketones Trace (Negative) Urine Blood Trace /uL (Negative) H Urine Nitrite Negative (Negative) Urine Bilirubin 1+ (Negative) H Urine Urobilinogen 3 mg/dL (Negative) H Urine Leukocyte Esterase 3+ /uL (Negative) Urine RBC 7 /hpf (0 - 4) Urine Microscopic WBC 57 /HPF (0-5) H Urine Squamous Epithelial Cells Few /hpf (<5) Urine Bacteria None seen /hpf (None Seen) Urine Granular Casts Few /lpf (0) Urine Glucose 3+ mg/dL (Normal) H Microbiology Microbiology Date/Time Source Procedure Growth Status 08/08/24 18:30 Voided Urine Urine Culture - Preliminary Escherichia coli - ESBL Resulted 08/08/24 18:29 Blood Blood Culture - Preliminary NO GROWTH AFTER 24 HOURS OF INCUBATION. Resulted Assessment/Plan Assessment/Plan Acute metabolic encephalopathy Acute hypoxic respiratory failure UTI with E coli ESBL Influenza A+ Diabetes mellitus Acute kidney injury HTN Sz disorder Old CVA PLAN: IV antibiotics Tamiflu O2 prn Blood culture Urine culture IV fluids NS 08/10/2024: Continue IV fluids and Tamiflu and oxygen as needed UTI: E coli ESBL: Switch Rocephin to meropenem IV Continue Tamiflu Continue Zithromax IV Continue IV fluids Add Glucerna Discontinue the Ingram catheter Physical therapy Discussed with the daughter at the bedside who stated the patient needs a new wheelchair since the 1 she has is breaking down The patient also states she needs a replacement hose for the oxygen at home Plan discussed with: Patient, Daughter My Orders Orders - KWABENA HERNANDEZ MD Procedure Category Date Status Time Insulin R (Human) PHA 08/09/24 In Process (Insulin R) 11:30 Glucose Blood PHA 08/09/24 In Process (Accu-Chek Comfort 11:30 Sodium Chloride 0.9% PHA 08/09/24 In Process 11:30 Nutritional PHA 08/10/24 Transmitted Supplements (Glucerna 12:00 * Resource Teacher CONS 08/10/24 Transmitted Consult Date of Service: Aug 10, 2024 Billing Provider: KWABENA HERNANDEZ MD Common Visit Codes: NOT BILLABLE KWABENA HERNANDEZ MD Aug 10, 2024 10:46
[2024-08-10] MEDS: Glucerna Carbsteady SHAKE Vanilla 8oz PO SCH (13:58)
[2024-08-10] MEDS: MEROPENEM 1GM IVPB 50 ML IV SCH (15:40)
[2024-08-10] MEDS: ACETAMINOPHEN 325 MG TAB PO PRN (17:41)
[2024-08-11] VITALS (13 sets, daily range): BP systolic 144–176; BP diastolic 63–77; PULSE 75–87; RESP 16–18; TEMP 97.4–98.5; O2SAT 93–97
[2024-08-11 05:43] LABS: Anion Gap 8 (5-15); Carbon Dioxide 27 mmol/L (20-31); Chloride 105 mmol/L (98-107); Potassium 3.8 mmol/L (3.5-5.1); Sodium 140 mmol/L (136-145)
[2024-08-11 05:49] LABS: BUN/Creatinine Ratio 14.5 (10.0-20.0); Blood Urea Nitrogen 12 mg/dL (9-23); Magnesium 1.8 mg/dL (1.6-2.6)
[2024-08-11 05:52] LABS: Glucose 267 mg/dL (74-106)
[2024-08-11] MEDS: cloNIDine HCL 0.1 MG TAB PO ONE (06:20)
--- NOTE | 2024-08-11 10:51 | DVHPN2 ---
Subjective He is doing better Asymptomatic except for weakness She is on 1-2 L nasal cannula Changes from previous H/P or p: Changes Objective Vitals Vital Signs Date Time Temp Pulse Resp B/P (MAP) Pulse Ox O2 Delivery O2 Flow Rate FiO2 08/11/24 09:00 97.6 78 18 151/73 (99) 96 97.6 08/11/24 08:37 Nasal Cannula 2.0 08/11/24 08:36 28 Intake/Output Intake and Output 08/11/24 07:00 Intake Total 2505 ml Output Total 500 ml Balance 2005 ml Intake Oral 430 ml IV Total 2075 ml Output Urine Total 500 ml # Voids 5 # Bowel Movements 2 General Appearance: Alert, Oriented X3, Cooperative, No acute distress Lungs: Clear to auscultation, Normal air movement Cardiovascular: Regular rate, Normal S1, Normal S2 Abdomen: Normal bowel sounds, Soft, No tenderness Extremities: No edema Medications Current Medications Medications Dose Ordered Sig/Eduin Route Start Time Stop Time Status Last Admin Dose Admin Azithromycin 250 ml @ 125 mls/hr DAILY IV 08/09/24 10:00 08/10/24 11:42 125 MLS/HR Albuterol 2.5 mg Q6HPRN PRN NEB 08/08/24 22:45 Levetiracetam 500 mg BID PO 08/09/24 10:00 08/10/24 21:33 500 MG Divalproex Sodium 500 mg BID PO 08/09/24 10:00 08/10/24 21:38 500 MG Pravastatin Sodium 80 mg HS PO 08/09/24 22:00 08/10/24 21:33 80 MG Dextrose 50 ml UD PRN IV 08/08/24 22:45 Ondansetron HCl 4 mg Q4HP PRN IV 08/08/24 23:00 Acetaminophen 650 mg Q6HP PRN PO 08/08/24 23:00 08/10/24 17:41 650 MG Insulin Human Regular ACHS SC 08/09/24 11:30 08/11/24 06:26 16 UNITS Diagnostic Test (Pha) 1 strip ACHS 08/09/24 11:30 08/11/24 06:19 1 STRIP Sodium Chloride 1,000 ml @ 75 mls/hr [id number] IV 08/09/24 11:30 08/10/24 00:50 75 MLS/HR Oseltamivir Phosphate 75 mg Q12HR PO 08/10/24 10:00 08/13/24 22:01 08/10/24 21:33 75 MG Enoxaparin Sodium 40 mg DAILY SC 08/10/24 10:00 08/10/24 10:22 40 MG Enteral Nutritional Formula 240 ml TIDWM PO 08/10/24 12:00 08/11/24 08:39 240 ML Meropenem 50 ml @ 17 mls/hr Q8HR IV 08/10/24 14:00 08/11/24 05:19 17 MLS/HR Laboratory Results Laboratory Tests 08/10/24 05:16 08/11/24 05:00 Chemistry Test 08/11/24 05:00 Calcium Level 9.0 mg/dL (8.7-10.4) Magnesium Level 1.8 mg/dL (1.6-2.6) Urinalysis Test 08/08/24 18:30 Urine Color Yellow (Yellow) Urine Clarity Turbid (Clear) H Urine pH 5.5 (5.0-9.0) Urine Specific [place] 1.018 (1.001-1.035) Urine Protein 1+ (Negative) H Urine Ketones Trace (Negative) Urine Blood Trace /uL (Negative) H Urine Nitrite Negative (Negative) Urine Bilirubin 1+ (Negative) H Urine Urobilinogen 3 mg/dL (Negative) H Urine Leukocyte Esterase 3+ /uL (Negative) Urine RBC 7 /hpf (0 - 4) Urine Microscopic WBC 57 /HPF (0-5) H Urine Squamous Epithelial Cells Few /hpf (<5) Urine Bacteria None seen /hpf (None Seen) Urine Granular Casts Few /lpf (0) Urine Glucose 3+ mg/dL (Normal) H Microbiology Microbiology Date/Time Source Procedure Growth Status 08/08/24 18:30 Voided Urine Urine Culture - Final Escherichia coli - ESBL Complete 08/08/24 18:29 Blood Blood Culture - Preliminary NO GROWTH AFTER 48 HOURS OF INCUBATION. Resulted Assessment/Plan Assessment/Plan Acute metabolic encephalopathy Acute hypoxic respiratory failure UTI with E coli ESBL Influenza A+ Diabetes mellitus Acute kidney injury HTN Sz disorder Old CVA PLAN: IV antibiotics Tamiflu O2 prn Blood culture Urine culture IV fluids NS 08/10/2024: Continue IV fluids and Tamiflu and oxygen as needed UTI: E coli ESBL: Switch Rocephin to meropenem IV Continue Tamiflu Continue Zithromax IV Continue IV fluids Add Glucerna Discontinue the Ingram catheter Physical therapy Discussed with the daughter at the bedside who stated the patient needs a new wheelchair since the 1 she has is breaking down The patient also states she needs a replacement hose for the oxygen at home 08/11/2024: Continue IV fluids Physical therapy as tolerated Continue meropenem IV Continue Tamiflu Out of bed as tolerated Discharge planning in 1-2 days Plan discussed with: Patient My Orders Orders - KWABENA HERNANDEZ MD Procedure Category Date Status Time * Confidential Secretary CONS 08/11/24 Transmitted Consult 09:42 Date of Service: Aug 11, 2024 Billing Provider: KWABENA HERNANDEZ MD Common Visit Codes: NOT BILLABLE KWABENA HERNANDEZ MD Aug 11, 2024 10:51
[2024-08-12] VITALS (8 sets, daily range): BP systolic 119–168; BP diastolic 61–76; PULSE 77–87; RESP 17–18; TEMP 97.5–98.4; O2SAT 95–99
--- NOTE | 2024-08-12 12:05 | DVHPN2 ---
Subjective c/o diarrhea Otherwise better Changes from previous H/P or p: Changes Objective Vitals Vital Signs Date Time Temp Pulse Resp B/P (MAP) Pulse Ox O2 Delivery O2 Flow Rate FiO2 08/12/24 09:00 97.6 83 17 158/76 (103) 97 97.6 08/11/24 23:25 Nasal Cannula* 2 28 Intake/Output Intake and Output 08/12/24 07:00 Intake Total 1550 ml Output Total 0 ml Balance 1550 ml Intake Oral 1200 ml IV Total 350 ml Output Urine Total 0 ml # Voids 6 # Bowel Movements 3 General Appearance: Alert, Oriented X3, Cooperative, No acute distress Lungs: Clear to auscultation, Normal air movement Cardiovascular: Regular rate, Normal S1, Normal S2 Abdomen: Normal bowel sounds, Soft, No tenderness Extremities: No edema Medications Current Medications Medications Dose Ordered Sig/Eduin Route Start Time Stop Time Status Last Admin Dose Admin Albuterol 2.5 mg Q6HPRN PRN NEB 08/08/24 22:45 Levetiracetam 500 mg BID PO 08/09/24 10:00 08/12/24 10:20 500 MG Divalproex Sodium 500 mg BID PO 08/09/24 10:00 08/12/24 10:19 500 MG Pravastatin Sodium 80 mg HS PO 08/09/24 22:00 08/11/24 22:10 80 MG Dextrose 50 ml UD PRN IV 08/08/24 22:45 Ondansetron HCl 4 mg Q4HP PRN IV 08/08/24 23:00 Acetaminophen 650 mg Q6HP PRN PO 08/08/24 23:00 08/10/24 17:41 650 MG Insulin Human Regular ACHS SC 08/09/24 11:30 08/12/24 10:39 12 UNITS Diagnostic Test (Pha) 1 strip ACHS 08/09/24 11:30 08/12/24 10:38 1 STRIP Oseltamivir Phosphate 75 mg Q12HR PO 08/10/24 10:00 08/13/24 22:01 08/12/24 10:19 75 MG Enoxaparin Sodium 40 mg DAILY SC 08/10/24 10:00 08/12/24 10:19 40 MG Enteral Nutritional Formula 240 ml TIDWM PO 08/10/24 12:00 08/12/24 08:00 240 ML Meropenem 50 ml @ 17 mls/hr Q8HR IV 08/10/24 14:00 08/12/24 05:57 17 MLS/HR Loperamide HCl 2 mg PRN PRN PO 08/12/24 12:15 UNV Laboratory Results Laboratory Tests 08/10/24 05:16 08/11/24 05:00 Urinalysis Test 08/08/24 18:30 Urine Color Yellow (Yellow) Urine Clarity Turbid (Clear) H Urine pH 5.5 (5.0-9.0) Urine Specific [place] 1.018 (1.001-1.035) Urine Protein 1+ (Negative) H Urine Ketones Trace (Negative) Urine Blood Trace /uL (Negative) H Urine Nitrite Negative (Negative) Urine Bilirubin 1+ (Negative) H Urine Urobilinogen 3 mg/dL (Negative) H Urine Leukocyte Esterase 3+ /uL (Negative) Urine RBC 7 /hpf (0 - 4) Urine Microscopic WBC 57 /HPF (0-5) H Urine Squamous Epithelial Cells Few /hpf (<5) Urine Bacteria None seen /hpf (None Seen) Urine Granular Casts Few /lpf (0) Urine Glucose 3+ mg/dL (Normal) H Microbiology Microbiology Date/Time Source Procedure Growth Status 08/08/24 18:30 Voided Urine Urine Culture - Final Escherichia coli - ESBL Complete 08/08/24 18:29 Blood Blood Culture - Preliminary NO GROWTH AFTER 72 HOURS OF INCUBATION. Resulted Assessment/Plan Assessment/Plan Acute metabolic encephalopathy Acute hypoxic respiratory failure UTI with E coli ESBL Influenza A+ Diabetes mellitus Acute kidney injury HTN Sz disorder Old CVA PLAN: IV antibiotics Tamiflu O2 prn Blood culture Urine culture IV fluids NS 08/10/2024: Continue IV fluids and Tamiflu and oxygen as needed UTI: E coli ESBL: Switch Rocephin to meropenem IV Continue Tamiflu Continue Zithromax IV Continue IV fluids Add Glucerna Discontinue the Ingram catheter Physical therapy Discussed with the daughter at the bedside who stated the patient needs a new wheelchair since the 1 she has is breaking down The patient also states she needs a replacement hose for the oxygen at home 08/11/2024: Continue IV fluids Physical therapy as tolerated Continue meropenem IV Continue Tamiflu Out of bed as tolerated Discharge planning in 1-2 days 08/12/24: Diarrhea: Imodium prn DC IV fluids and Zithromax Continue Meropenem Weakness: Continue PT Continue Tamiflu Plan discussed with: Patient My Orders Orders - KWABENA HERNANDEZ MD Procedure Category Date Status Time Loperamide Capsule PHA 08/12/24 Transmitted (Imodium Capsule) 12:15 Date of Service: Aug 12, 2024 Billing Provider: KWABENA HERNANDEZ MD Common Visit Codes: NOT BILLABLE KWABENA HERNANDEZ MD Aug 12, 2024 12:05
[2024-08-12] MEDS ORDERED: LOPERAMIDE HCL 2 MG CAP/TAB PO PRN (12:15)
[2024-08-13] VITALS (7 sets, daily range): BP systolic 122–158; BP diastolic 49–58; PULSE 82–89; RESP 18; TEMP 97.6–98.7; O2SAT 96–97
[2024-08-13 06:38] LABS: Chloride 103 mmol/L (98-107); Sodium 139 mmol/L (136-145)
[2024-08-13 06:39] LABS: Anion Gap 8 (5-15); Carbon Dioxide 28 mmol/L (20-31)
[2024-08-13 06:40] LABS: Calcium 8.8 mg/dL (8.7-10.4)
[2024-08-13 06:44] LABS: BUN/Creatinine Ratio 21.7 (10.0-20.0); Blood Urea Nitrogen 20 mg/dL (9-23)
[2024-08-13 06:45] LABS: Glucose 209 mg/dL (74-106); Potassium 3.5 mmol/L (3.5-5.1)
[2024-08-13] MEDS ORDERED: NITR-87 PO (11:23)
--- NOTE | 2024-08-13 11:26 | DVHDS2 ---
Discharge Summary Date of Admission Aug 08, 2024 at 22:46 Date of Discharge: Aug 13, 2024 Labs/Diagnostic Data: Laboratory Results Test 08/13/24 06:32 08/13/24 05:30 08/10/24 05:16 08/08/24 20:24 POC Glucose 240 mg/dl (70-106) Sodium Level 139 mmol/L (136-145) Potassium Level 3.5 mmol/L (3.5-5.1) Chloride Level 103 mmol/L (98-107) Carbon Dioxide Level 28 mmol/L (20-31) Anion Gap 8 (5-15) Blood Urea Nitrogen 20 mg/dL (9-23) Creatinine 0.92 mg/dL (0.550-1.02) Glomerular Filtration Rate Calc 67 mL/min (>90) BUN/Creatinine Ratio 21.7 (10.0-20.0) Serum Glucose 209 mg/dL (74-106) Calcium Level 8.8 mg/dL (8.7-10.4) Magnesium Level 2.0 mg/dL (1.6-2.6) White Blood Count 5.3 10^3/uL (4.4-10.8) Red Blood Count 3.44 10^6/uL (4.0-5.20) Hemoglobin 10.6 g/dL (12.2-16.2) Hematocrit 31.4 % (36.0-46.0) Mean Corpuscular Volume 91.3 fL (80.0-100.0) Mean Corpuscular Hemoglobin 30.9 pg (28.0-32.0) Mean Corpuscular Hemoglobin Concent 33.9 g/dL (32.0-36.0) Red Cell Distribution Width 14.0 % (11.8-14.3) Platelet Count 153 10^3/uL (140-450) Mean Platelet Volume 8.1 fL (6.9-10.8) Neutrophils (%) (Auto) 69.3 % (37.0-80.0) Lymphocytes (%) (Auto) 20.9 % (10.0-50.0) Monocytes (%) (Auto) 9.5 % (0.0-12.0) Eosinophils (%) (Auto) 0.1 % (0.0-7.0) Basophils (%) (Auto) 0.2 % (0.0-2.0) Neutrophils # (Auto) 3.7 10 ^3/uL (1.6-8.6) Lymphocytes # (Auto) 1.1 10 ^3/uL (0.4-5.4) Monocytes # (Auto) 0.5 10 ^3/uL (0-1.3) Eosinophils # (Auto) 0 10 ^3/uL (0-0.8) Basophils # (Auto) 0 10 ^3/uL (0-0.2) Nucleated Red Blood Cells 0.1 % Total Bilirubin 0.4 mg/dL (0.2-1.0) Aspartate Amino Transferase (AST) 29 U/L (13-40) Alanine Aminotransferase (ALT) 21 U/L (7-40) Alkaline Phosphatase 74 U/L (46-116) Total Protein 6.1 g/dL (5.7-8.2) Albumin 3.2 g/dL (3.2-4.8) Lactic Acid Level 1.9 mmol/L (0.4-2.0) Test 08/08/24 18:30 08/08/24 18:29 08/08/24 17:47 Urine Color Yellow (Yellow) Urine Clarity Turbid (Clear) Urine pH 5.5 (5.0-9.0) Urine Specific [place] 1.018 (1.001-1.035) Urine Protein 1+ (Negative) Urine Ketones Trace (Negative) Urine Blood Trace /uL (Negative) Urine Nitrite Negative (Negative) Urine Bilirubin 1+ (Negative) Urine Urobilinogen 3 mg/dL (Negative) Urine Leukocyte Esterase 3+ /uL (Negative) Urine RBC 7 /hpf (0 - 4) Urine Microscopic WBC 57 /HPF (0-5) Urine Squamous Epithelial Cells Few /hpf (<5) Urine Bacteria None seen /hpf (None Seen) Urine Granular Casts Few /lpf (0) Urine Glucose 3+ mg/dL (Normal) B-Type Natriuretic Peptide 145.38 pg/mL (0-100) Lipase 24 U/L (12-53) Influenza Type A Antigen Positive (Negative) Influenza Type B Antigen Negative (Negative) SARS-CoV-2 Antigen (Rapid) Negative (NEGATIVE) Other Laboratory Tests 08/13/24 05:30 08/10/24 05:16 Brief Hx & Hospital Course: Final diagnoses: Acute metabolic encephalopathy Acute hypoxic respiratory failure UTI with E coli ESBL Influenza A+ Diabetes mellitus Acute kidney injury HTN Sz disorder Old CVA She was given Tamiflu Urine Cx showed E. coli ESBL treated with IV Meropenem She improved DC home on Macrobid x 7 days Resume home meds Condition at Discharge: Stable Final Diagnosis/Problems List Acute metabolic encephalopathy Acute hypoxic respiratory failure UTI with E coli ESBL Influenza A+ Diabetes mellitus Acute kidney injury HTN Sz disorder Old CVA Discharge Disposition: Home SNF Discharge Will this Physician continue t: No Discharge Instruct/Medications Diet: Cardiac 2g Na,low cholest Activity: Light activity Follow Up/Referral: PCP Z[facility] Medications: Macrobid 100 mg bid x 7 days Resume home meds Discharge Statement: "Patient was advised to return to the ER or call 911 if any headaches, dizziness, shortness of breath, chest pain, abdominal pain, bleeding, fevers, or worsening of medical condition. Patient was counseled about treatment plan, medications, possible side effects, patientverbalized understanding. All questions were answered to the best of my ability. This discharge took greater then 30 minutes in planning, reviewing documentation, counseling the patient, and discussing with other team members." ASSESSMENT ASSESSMENT Assessment Acute metabolic encephalopathy Acute hypoxic respiratory failure UTI with E coli ESBL Influenza A+ Diabetes mellitus Acute kidney injury HTN Sz disorder Old CVA Date of Service: Aug 13, 2024 Billing Provider: KWABENA HERNANDEZ MD Common Visit Codes: NOT BILLABLE KWABENA HERNANDEZ MD Aug 13, 2024 11:26
== END 2024-08-13 18:53 | disposition home health service (06) | DRG 867 ==
LOC: EDBD 16:44 → ER 16:47 → OVERFLOW 22:46 → EAST 23:56
PROVIDERS: ADMIT Nurse Practitioner; ATTEND Internal Medicine Geriatric Medicine
DX: B96.20 Unspecified Escherichia coli [E. coli] as the cause of diseases classified elsewhere (principal); G93.41 Metabolic encephalopathy; J96.01 Acute respiratory failure with hypoxia; N17.9 Acute kidney failure, unspecified; N39.0 Urinary tract infection, site not specified; E87.20 Acidosis, unspecified; J10.1 Influenza due to other identified influenza virus with other respiratory manifestations; G40.909 Epilepsy, unspecified, not intractable, without status epilepticus; F41.9 Anxiety disorder, unspecified; Z20.822 Contact with and (suspected) exposure to COVID-19; N18.9 Chronic kidney disease, unspecified; I12.9 Hypertensive chronic kidney disease with stage 1 through stage 4 chronic kidney disease, or unspecified chronic kidney disease; E11.22 Type 2 diabetes mellitus with diabetic chronic kidney disease; E11.65 Type 2 diabetes mellitus with hyperglycemia; Z79.2 Long term (current) use of antibiotics; Z79.899 Other long term (current) drug therapy; Z79.4 Long term (current) use of insulin; Z86.73 Personal history of transient ischemic attack (TIA), and cerebral infarction without residual deficits
CPT/HCPCS: 36415; 70450; 71045; 80048; 80053; 81001; 82962; 83605; 83690; 83735; 83880; 85025; 87040; 87086; 87088; 87186; 87426; 87804; 93005; 93306; 96365; 97110; 97116; 97163; 97530; 99291; G0378; G9035; J1815; J2185; J2543